=== PATIENT | female | born 1960 | race Caucasian/White ===

== ENCOUNTER 2017-08-22 14:43 | Emergency (ER) | payer SELFPAY ==
[2017-08-22] MEDS ORDERED: PREDNISONE 20 MG TABLET PO ONE (15:39)
[2017-08-22] MEDS ORDERED: IPRATROPIUM/ALBUTEROL 0.5-2.5 MG/3 ML AMPUL NEB ONE (15:39)
[2017-08-22] MEDS ORDERED: ALBUTEROL SULFATE 0.083% NEB 2.5 MG/3 ML AMPUL NEB ONE ×3 (15:39→16:53)
--- NOTE | 2017-08-22 15:42 | ER Document Report ---
ED Respiratory Problem - General Chief Complaint: Breathing Difficulty Stated Complaint: DIFFICULTY BREATHING Time Seen by Provider: 08/22/17 15:26 Mode of Arrival: Ambulatory Information source: Patient TRAVEL OUTSIDE OF THE [place] IN LAST 30 DAYS: No - HPI Patient complains to provider of: Cough, Short of breath Onset: Other - 2 weeks Duration: Worse/persistent Quality of pain: Achy Severity: Moderate Pain Level: 3 Context: Hx asthma, Hx COPD, Smoker Short of Breath: Moderate Chest pain/discomfort: Tightness Cough: Productive Sputum amount: Small Sputum color: Green, White Sputum consistency: Mucoid Associated symptoms: Congestion, Cough, Difficulty breathing, Short of breath, Wheezing Notes: Patient is a 56-year-old female who is a smoker who presents to the emergency room today complaining of productive cough 2 weeks duration with chest tightness and difficulty breathing, she has been using an inhaler at home with minimal relief, the cough is productive of whitish and sometimes greenish colored sputum, she also reports some body aches and chills - Related Data Allergies/Adverse Reactions: No Known Allergies Allergy (Verified 08/22/17 14:59) Past Medical History - General Information source: Patient - Social History Smoking Status: Current Every Day Smoker Family History: Reviewed & Not Pertinent Patient has suicidal ideation: No Patient has homicidal ideation: No Pulmonary Medical History: Reports: Hx Bronchitis Endocrine Medical History: Reports: Hx Hypothyroidism Renal/ Medical History: Denies: Hx Peritoneal Dialysis Psychiatric Medical History: Reports: Hx Depression Past Surgical History: Reports: Hx Section, Hx Cholecystectomy, Hx Hysterectomy - Immunizations Hx Diphtheria, Pertussis, Tetanus Vaccination: Yes Hx Pneumococcal Vaccination: 02/04/13 Review of Systems - Review of Systems Constitutional: Chills EENT: No symptoms reported Cardiovascular: No symptoms reported Respiratory: Cough, Short of breath, Wheezing Gastrointestinal: No symptoms reported Genitourinary: No symptoms reported Female Genitourinary: No symptoms reported Musculoskeletal: No symptoms reported Skin: No symptoms reported Hematologic/Lymphatic: No symptoms reported Neurological/Psychological: No symptoms reported -: Yes All other systems reviewed and negative Physical Exam - Vital signs Vitals: Temp Pulse Resp BP Pulse Ox 98.0 F 74 16 139/54 H 92 08/22/17 14:59 08/22/17 14:59 08/22/17 14:59 08/22/17 14:59 08/22/17 14:59 Interpretation: Normal - General General appearance: Appears well, Alert - HEENT Head: Normocephalic, Atraumatic Eyes: Normal Pupils: PERRL - Respiratory Respiratory status: No respiratory distress Chest status: Nontender Breath sounds: Productive cough, Rhonchi, Wheezing Chest palpation: Normal - Cardiovascular Rhythm: Regular Heart sounds: Normal auscultation Murmur: No - Abdominal Inspection: Normal Distension: No distension Bowel sounds: Normal Tenderness: Nontender Organomegaly: No organomegaly - Back Back: Normal, Nontender - Extremities General upper extremity: Normal inspection, Nontender, Normal color, Normal ROM , Normal temperature General lower extremity: Normal inspection, Nontender, Normal color, Normal ROM , Normal temperature, Normal weight bearing. No: Ba's sign - Neurological Neuro grossly intact: Yes Cognition: Normal Orientation: AAOx4 Pee Coma Scale Eye Opening: Spontaneous Pee Coma Scale Verbal: Oriented [place] Coma Scale Motor: Obeys Commands Pee Coma Scale Total: 15 Speech: Normal Motor strength normal: LUE, RUE, LLE, RLE Sensory: Normal - Psychological Associated symptoms: Normal affect, Normal mood - Skin Skin Temperature: Warm Skin Moisture: Dry Skin Color: Normal Course - Re-evaluation Re-evalutation: 08/22/17 17:33 Patient reports feeling much better and ready to go home, lab and imaging findings were discussed with her at bedside which are unremarkable, she continues to have a mild wheeze but this is significantly improved from her presentation, she has a nebulizer machine at home, since she is a smoker and has had the symptoms for [address] her on a Z-Jose, for likely bronchitis, she was advised to continue using her albuterol treatments at home, and will be placed on steroids as well, patient was advised to return if symptoms worsen, patient acknowledges understanding and agreement with this plan - Vital Signs Vital signs: Temp Pulse Resp BP Pulse Ox 98.0 F 74 16 139/54 H 92 08/22/17 14:59 08/22/17 14:59 08/22/17 14:59 08/22/17 14:59 08/22/17 14:59 - Laboratory Result Diagrams: 08/22/17 15:50 08/22/17 15:50 Laboratory results interpreted by me: 08/22/17 15:50 Carbon Dioxide 34 H - Diagnostic Test Radiology reviewed: Image reviewed - EKG Interpretation by Me EKG shows normal: Sinus rhythm Rate: Normal Rhythm: NSR Discharge - Discharge Clinical Impression: COPD exacerbation Acute bronchitis Qualifiers: Bronchitis organism: unspecified organism Qualified Code(s): J20.9 - Acute bronchitis, unspecified Condition: Stable Disposition: HOME, SELF-CARE Instructions: Bronchitis ([facility]), Bronchitis With Bronchospasm (Wheezing) ([facility]), Chronic Obstructive Lung Disease ([facility]) Additional Instructions: Follow up with your primary care provider in one to 2 days. Return to the emergency room immediately if symptoms worsen or any additional concerns. Prescriptions: Albuterol Sulfate [Albuterol Sulfate 2.5mg/3 mL] 1 vial IH Q4 PRN #30 vial PRN Reason: Azithromycin [Zithromax 250 mg Tablet] 250 mg PO ASDIR PRN #6 tablet PRN Reason: Prednisone 40 mg PO DAILY #8 tablet Forms: Smoking Cessation Education
--- NOTE | 2017-08-22 16:12 | RADIOLOGY REPORT (SQ) ---
EXAM DESCRIPTION: CHEST PA/LAT COMPLETED DATE/TIME: 08/22/2017 4:03 pm REASON FOR STUDY: sob COMPARISON: 08/01/2013 EXAM PARAMETERS: NUMBER OF VIEWS: two views TECHNIQUE: Digital Frontal and Lateral radiographic views of the chest acquired. RADIATION DOSE: NA LIMITATIONS: none FINDINGS: LUNGS AND PLEURA: No opacities, masses or pneumothorax. No pleural effusion. MEDIASTINUM AND HILAR STRUCTURES: No masses or contour abnormalities. HEART AND VASCULAR STRUCTURES: Heart normal size. No evidence for failure. BONES: No acute findings. HARDWARE: None in the chest. OTHER: No other significant finding. IMPRESSION: NO SIGNIFICANT RADIOGRAPHIC FINDING IN THE CHEST. TECHNICAL DOCUMENTATION: JOB ID: [id number] [employer]- All Rights Reserved
[2017-08-22 16:14] LABS: ABSOLUTE BASOPHILS # (AUTO) 0.1 10^3/uL (0.0-0.2); ABSOLUTE EOSINOPHILS # (AUTO) 0.2 10^3/uL (0.0-0.6); ABSOLUTE LYMPHOCYTES (AUTO) 1.9 10^3/uL (0.5-4.7); ABSOLUTE MONOCYTES (AUTO) 0.6 10^3/uL (0.1-1.4); ABSOLUTE NEUT (AUTO) 6.4 10^3/uL (1.7-8.2); EOSINOPHILS % (AUTO) 2.7 % (0-6); HEMATOCRIT 44.3 % (36.0-47.0); HEMOGLOBIN 14.9 g/dL (12.0-15.5); HGB HCT DIFFERENCE 0.4; LYMPHOCYTES % (AUTO) 20.4 % (13-45); MEAN CORPUSCULAR HEMOGLOBIN 30.9 pg (27.0-33.4); MEAN CORPUSCULAR HGB CONC 33.6 g/dL (32.0-36.0); MEAN CORPUSCULAR VOLUME 92 fl (80-97); MONOCYTES % (AUTO) 6.2 % (3-13); RED BLOOD COUNT 4.82 10^6/uL (3.72-5.28); RED CELL DISTRIBUTION WIDTH 12.9 % (11.5-14.0); SEGMENTED NEUTROPHILS % (AUTO) 69.7 % (42-78); WHITE BLOOD COUNT 9.2 10^3/uL (4.0-10.5)
[2017-08-22 16:29] LABS: ALANINE AMINOTRANSFERASE 26 U/L (9-52); ALBUMIN 4.2 g/dL (3.5-5.0); ALKALINE PHOSPHATASE 71 U/L (38-126); ANION GAP 9 (5-19); ASPARTATE AMINO TRANSFERASE 18 U/L (14-36); BILIRUBIN,DIRECT 0.3 mg/dL (0.0-0.4); BILIRUBIN,TOTAL 0.3 mg/dL (0.2-1.3); BLOOD UREA NITROGEN 13 mg/dL (7-20); CALCIUM 9.7 mg/dL (8.4-10.2); CARBON DIOXIDE 34 mmol/L (22-30); CHLORIDE 102 mmol/L (98-107); CREATININE RESULT 0.64 mg/dL (0.52-1.25); GLUCOSE 99 mg/dL (75-110); POTASSIUM 4.6 mmol/L (3.6-5.0); SODIUM 144.7 mmol/L (137-145); TOTAL PROTEIN 6.9 g/dL (6.3-8.2)
[2017-08-22] MEDS ORDERED: HYDROCODONE/ACETAMINOPHEN 5-325 MG TABLET PO ONE (16:47)
[2017-08-22 18:15] VITALS: BP 129/52
--- NOTE | 2017-08-23 09:37 | EKG REPORT ---
SEVERITY:- ABNORMAL ECG - SINUS RHYTHM ABNRM R PROG, CONSIDER ASMI OR LEAD PLACEMENT ABNORMAL T, CONSIDER ISCHEMIA, ANT-LAT LEADS : Confirmed by: Irma Shelton 23-Aug-2017 09:37:11
== END 2017-08-22 18:13 | disposition home or self-care (01) ==
LOC: ER 14:43
DX: J20.9 Acute bronchitis, unspecified (principal); J44.1 Chronic obstructive pulmonary disease with (acute) exacerbation; R06.02 Shortness of breath; R05 Cough; F17.200 Nicotine dependence, unspecified, uncomplicated; R07.9 Chest pain, unspecified
CPT/HCPCS: 93005; 94640 ×2; 99285; 36415; 85025; 80053; 84484; 71020; 93010; J7512; J7620

== ENCOUNTER 2017-09-04 16:24 | Emergency (ER) | payer SELFPAY ==
[2017-09-04] MEDS ORDERED: ASPIRIN 325 MG TABLET PO ONE (16:50)
--- NOTE | 2017-09-04 16:52 | ER Document Report ---
ED Medical Screen (RME) - General Chief Complaint: Chest Pain Stated Complaint: CHEST PAIN Time Seen by Provider: 09/04/17 16:50 Mode of Arrival: Ambulatory Information source: Patient TRAVEL OUTSIDE OF THE [place] IN LAST 30 DAYS: No - HPI Patient complains to provider of: CP; cough Onset: Other - Pt states she has had cough (mostly non-productive) and chest pain intermittently for the past 2 weeks. Does smoke. No SOB at present - Related Data Allergies/Adverse Reactions: No Known Allergies Allergy (Verified 09/04/17 16:27) Home Medications: Current Home Medications Cyanocobalamin (Vitamin B-12) [Vitamin B-12] 500 mcg SL DAILY 09/04/17 [History] Estradiol 0.5 mg PO DAILY 09/04/17 [History] Past Medical History Pulmonary Medical History: Reports: Hx Bronchitis Endocrine Medical History: Reports: Hx Hypothyroidism Renal/ Medical History: Denies: Hx Peritoneal Dialysis Psychiatric Medical History: Reports: Hx Depression Past Surgical History: Reports: Hx Section, Hx Cholecystectomy, Hx Hysterectomy - Immunizations Hx Diphtheria, Pertussis, Tetanus Vaccination: Yes Physical Exam - Vital signs Vitals: Temp Pulse Resp BP Pulse Ox 97.8 F 85 24 H 131/58 H 93 09/04/17 16:28 09/04/17 16:28 09/04/17 16:28 09/04/17 16:28 09/04/17 16:28 Course - Vital Signs Vital signs: Temp Pulse Resp BP Pulse Ox 97.8 F 85 24 H 131/58 H 93 09/04/17 16:28 09/04/17 16:28 09/04/17 16:28 09/04/17 16:28 09/04/17 16:28
[2017-09-04 17:15] LABS: ABSOLUTE BASOPHILS # (AUTO) 0.1 10^3/uL (0.0-0.2); ABSOLUTE EOSINOPHILS # (AUTO) 0.3 10^3/uL (0.0-0.6); ABSOLUTE LYMPHOCYTES (AUTO) 1.5 10^3/uL (0.5-4.7); ABSOLUTE MONOCYTES (AUTO) 0.9 10^3/uL (0.1-1.4); ABSOLUTE NEUT (AUTO) 7.3 10^3/uL (1.7-8.2); BASOPHILS % (AUTO) 0.6 % (0-2); EOSINOPHILS % (AUTO) 2.9 % (0-6); HEMATOCRIT 44.3 % (36.0-47.0); HEMOGLOBIN 15.1 g/dL (12.0-15.5); LYMPHOCYTES % (AUTO) 15.4 % (13-45); MEAN CORPUSCULAR HEMOGLOBIN 31.4 pg (27.0-33.4); MEAN CORPUSCULAR VOLUME 92 fl (80-97); MONOCYTES % (AUTO) 8.5 % (3-13); RED CELL DISTRIBUTION WIDTH 13.2 % (11.5-14.0); SEGMENTED NEUTROPHILS % (AUTO) 72.6 % (42-78)
--- NOTE | 2017-09-04 17:23 | RADIOLOGY REPORT (SQ) ---
EXAM DESCRIPTION: CHEST PA/LAT COMPLETED DATE/TIME: 09/04/2017 5:15 pm REASON FOR STUDY: CP COMPARISON: 08/22/2017 EXAM PARAMETERS: NUMBER OF VIEWS: two views TECHNIQUE: Digital Frontal and Lateral radiographic views of the chest acquired. RADIATION DOSE: NA LIMITATIONS: none FINDINGS: LUNGS AND PLEURA: No opacities, masses or pneumothorax. No pleural effusion. MEDIASTINUM AND HILAR STRUCTURES: No masses or contour abnormalities. HEART AND VASCULAR STRUCTURES: Heart normal size. No evidence for failure. BONES: No acute findings. HARDWARE: Mild scoliosis. OTHER: No other significant finding. IMPRESSION: NO SIGNIFICANT RADIOGRAPHIC FINDING IN THE CHEST. TECHNICAL DOCUMENTATION: JOB ID: [id number] [employer]- All Rights Reserved
[2017-09-04 17:35] LABS: ALANINE AMINOTRANSFERASE 27 U/L (9-52); ALBUMIN 4.2 g/dL (3.5-5.0); ALKALINE PHOSPHATASE 79 U/L (38-126); ANION GAP 8 (5-19); ASPARTATE AMINO TRANSFERASE 21 U/L (14-36); BILIRUBIN,DIRECT 0.3 mg/dL (0.0-0.4); BILIRUBIN,TOTAL 0.5 mg/dL (0.2-1.3); BLOOD UREA NITROGEN 10 mg/dL (7-20); CALCIUM 9.9 mg/dL (8.4-10.2); CARBON DIOXIDE 35 mmol/L (22-30); CHLORIDE 100 mmol/L (98-107); CREATINE KINASE 53 U/L (30-135); CREATININE RESULT 0.65 mg/dL (0.52-1.25); GLUCOSE 88 mg/dL (75-110); POTASSIUM 4.3 mmol/L (3.6-5.0); SODIUM 143.2 mmol/L (137-145); TOTAL PROTEIN 6.9 g/dL (6.3-8.2)
[2017-09-04 17:44] LABS: CREATINE KINASE MB 1.16 ng/mL (<4.55)
[2017-09-04 17:45] LABS: TROPONIN I < 0.012 ng/mL
--- NOTE | 2017-09-04 18:37 | EKG REPORT ---
SEVERITY:- ABNORMAL ECG - SINUS RHYTHM ABNORMAL T, CONSIDER ISCHEMIA, DIFFUSE LEADS : Confirmed by: Anthony Burgess MD 04-Sep-2017 18:36:46
[2017-09-04] MEDS ORDERED: IPRATROPIUM/ALBUTEROL 0.5-2.5 MG/3 ML AMPUL NEB ONE (18:56)
[2017-09-04] MEDS ORDERED: PREDNISONE 20 MG TABLET PO ONE (18:56)
[2017-09-04] MEDS ORDERED: ALBUTEROL SULFATE 0.083% NEB 2.5 MG/3 ML AMPUL NEB ONE (18:56)
[2017-09-04] MEDS ORDERED: BENZONATATE 100 MG CAPSULE PO ONE (18:57)
--- NOTE | 2017-09-04 18:58 | ER Document Report ---
ED Respiratory Problem - General Chief Complaint: Chest Pain Stated Complaint: CHEST PAIN Time Seen by Provider: 09/04/17 16:50 Mode of Arrival: Ambulatory Information source: Patient TRAVEL OUTSIDE OF THE [place] IN LAST 30 DAYS: No - HPI Patient complains to provider of: COPD, Cough, Short of breath Onset: Other - 2-3 weeks Duration: Worse/persistent Quality of pain: Achy Severity: Mild Pain Level: 1 Context: Hx COPD, Smoker Short of Breath: Moderate Chest pain/discomfort: Tightness Cough: Productive Sputum amount: Small Sputum color: White Sputum consistency: Mucoid At home treatment: Bronchodilators, Oral steroids Associated symptoms: Chest pain/discomfort, Congestion, Cough, Short of breath, Wheezing Similar symptoms previously: Yes Recently seen / treated by doctor: Yes Notes: Patient is a 57-year-old female with a history of COPD who continues to smoke, who presents to the emergency room for persistent cough productive of whitish colored phlegm, with her fever of 101 yesterday, she was seen in this emergency room on August 22 and diagnosed with bronchitis, was placed on antibiotics, steroids and albuterol treatments, she completed the antibiotics and the steroids but continues to have symptoms, she has not followed up with her primary care provider, she reports that her chest only hurts when she coughs - Related Data Allergies/Adverse Reactions: No Known Allergies Allergy (Verified 09/04/17 16:27) Home Medications: Current Home Medications Cyanocobalamin (Vitamin B-12) [Vitamin B-12] 500 mcg SL DAILY 09/04/17 [History] Estradiol 0.5 mg PO DAILY 09/04/17 [History] Past Medical History - General Information source: Patient - Social History Smoking Status: Current Every Day Smoker Frequency of alcohol use: None Drug Abuse: None Family History: Reviewed & Not Pertinent Patient has suicidal ideation: No Patient has homicidal ideation: No Pulmonary Medical History: Reports: Hx Bronchitis Endocrine Medical History: Reports: Hx Hypothyroidism Renal/ Medical History: Denies: Hx Peritoneal Dialysis Psychiatric Medical History: Reports: Hx Depression Past Surgical History: Reports: Hx Section, Hx Cholecystectomy, Hx Hysterectomy - Immunizations Hx Diphtheria, Pertussis, Tetanus Vaccination: Yes Hx Pneumococcal Vaccination: 02/04/13 Review of Systems - Review of Systems Constitutional: No symptoms reported EENT: No symptoms reported Cardiovascular: Chest pain Respiratory: See HPI Gastrointestinal: No symptoms reported Genitourinary: No symptoms reported Female Genitourinary: No symptoms reported Musculoskeletal: No symptoms reported Skin: No symptoms reported Hematologic/Lymphatic: No symptoms reported Neurological/Psychological: No symptoms reported -: Yes All other systems reviewed and negative Physical Exam - Vital signs Vitals: Temp Pulse Resp BP Pulse Ox 97.8 F 85 24 H 131/58 H 93 09/04/17 16:28 09/04/17 16:28 09/04/17 16:28 09/04/17 16:28 09/04/17 16:28 Interpretation: Tachypneic - General General appearance: Appears well, Alert - HEENT Head: Normocephalic, Atraumatic Eyes: Normal Pupils: PERRL - Respiratory Respiratory status: No respiratory distress Chest status: Nontender Breath sounds: Nonproductive cough, Wheezing Chest palpation: Normal - Cardiovascular Rhythm: Regular Heart sounds: Normal auscultation Murmur: No - Abdominal Inspection: Normal Distension: No distension Bowel sounds: Normal Tenderness: Nontender Organomegaly: No organomegaly - Back Back: Normal, Nontender - Extremities General upper extremity: Normal inspection, Nontender, Normal color, Normal ROM , Normal temperature General lower extremity: Normal inspection, Nontender, Normal color, Normal ROM , Normal temperature, Normal weight bearing. No: Ba's sign - Neurological Neuro grossly intact: Yes Cognition: Normal Orientation: AAOx4 [place] Coma Scale Eye Opening: Spontaneous Pee Coma Scale Verbal: Oriented [place] Coma Scale Motor: Obeys Commands [place] Coma Scale Total: 15 Speech: Normal Motor strength normal: LUE, RUE, LLE, RLE Sensory: Normal - Psychological Associated symptoms: Normal affect, Normal mood - Skin Skin Temperature: Warm Skin Moisture: Dry Skin Color: Normal Course - Re-evaluation Re-evalutation: 09/04/17 19:56 Patient reports feeling much better after breathing treatments and IV steroids, she was placed on a tapering dose of steroids, provided with cough medication and strongly encouraged to discontinue smoking, symptoms are consistent with COPD exacerbation as well as likely viral upper respiratory illness/bronchitis, patient was advised to follow-up with her primary care provider or return if symptoms worsen patient acknowledges understanding and agreement with this plan 09/04/17 23:47 - Vital Signs Vital signs: Temp Pulse Resp BP Pulse Ox 98.6 F 78 15 131/87 H 93 09/04/17 20:22 09/04/17 20:22 09/04/17 18:49 09/04/17 20:22 09/04/17 20:22 - Laboratory Result Diagrams: 09/04/17 17:01 09/04/17 17:01 Laboratory results interpreted by me: 09/04/17 17:01 Carbon Dioxide 35 H - Diagnostic Test Radiology reviewed: Image reviewed, Reports reviewed - EKG Interpretation by Me EKG shows normal: Sinus rhythm Rate: Normal Rhythm: NSR When compared to previous EKG there are: No significant change Additional EKG results interpreted by me: 09/04/17 23:49 Diffuse inverted T waves Discharge - Discharge Clinical Impression: COPD exacerbation Condition: Stable Disposition: HOME, SELF-CARE Instructions: Chronic Obstructive Lung Disease ([facility]), Stop Smoking ([facility]) Additional Instructions: Follow up with your primary care provider in one to 2 days. Return to the emergency room immediately if symptoms worsen or any additional concerns. Prescriptions: Albuterol Sulfate [Proair HFA Inhalation Aerosol 8.5 gm MDI] 1 puff IH Q4 PRN # 1 mdi PRN Reason: Methylprednisolone [Medrol Dosepack (4 mg/Tab) 21 Tab/Dosepak] 4 mg PO ASDIR PRN #21 tab.ds.pk PRN Reason: Promethazine HCl/Codeine [Prometh-Codein 6.25-10 mg/5 ml] 5 ml PO TID #120 syrup Forms: Smoking Cessation Education
[2017-09-04 20:23] VITALS: BP 131/87
== END 2017-09-04 20:24 | disposition home or self-care (01) ==
LOC: ER 16:24
DX: J44.1 Chronic obstructive pulmonary disease with (acute) exacerbation (principal); R07.9 Chest pain, unspecified; F17.200 Nicotine dependence, unspecified, uncomplicated; Z90.710 Acquired absence of both cervix and uterus; Z90.49 Acquired absence of other specified parts of digestive tract
CPT/HCPCS: 93005; 94640 ×2; 99285; 36415; 82553; 82550; 85025; 80053; 84484; 71020; 93010; J7512; J7620

== ENCOUNTER 2017-09-10 00:38 | Inpatient (IN) | payer SELFPAY ==
[2017-09-10] MEDS ORDERED: NORMAL SALINE 1000 ML 1,000 ML IV ONE (00:46)
[2017-09-10] MEDS ORDERED: CEFTRIAXONE 1 GM/D5W RTU 1 GM/50 ML RTUPB IV ONE (01:00)
[2017-09-10] MEDS ORDERED: AZITHROMYCIN 250 MG TABLET PO ONE (01:00)
[2017-09-10] MEDS ORDERED: ALBUTEROL SULFATE 0.083% NEB 2.5 MG/3 ML AMPUL NEB ONE (01:00)
[2017-09-10] MEDS ORDERED: KETOROLAC TROMETHAMINE INJ/PF 30 MG/1 ML SDV IV ONE (01:01)
[2017-09-10 01:06] LABS: VENOUS BLOOD BASE EXCESS 5.5 mmol/L; VENOUS BLOOD HCO3 30.3 mmol/L (20-32); VENOUS BLOOD PCO2 44.6 mmHg (35-63); VENOUS BLOOD PH 7.45 (7.30-7.42)
--- NOTE | 2017-09-10 01:06 | ER Document Report ---
ED General - General Chief Complaint: Shortness Of Breath Stated Complaint: SHORTNESS OF BREATH Time Seen by Provider: 09/10/17 00:45 Notes: Patient is a 57-year-old female with past medical history of COPD, ongoing tobacco abuse, no who presents with 48 hours of progressively worsening shortness of breath, cough, fever, chills. Patient states that she has had difficulty with her breathing for the past 1 month but it became markedly worse in the last 2 days. States exertion worsens her symptoms. She has tried Tylenol at home with moderate improvement of her symptoms. She has also been using her albuterol inhalers but states this does not feel like this improves work of breathing. She does not have a primary care doctor. She denies a history of similar symptoms in the past. She has never required intubation or ICU admission for her COPD. TRAVEL OUTSIDE OF THE [place] IN LAST 30 DAYS: No - Related Data Allergies/Adverse Reactions: No Known Allergies Allergy (Verified 09/04/17 16:27) Past Medical History - General Information source: Patient - Social History Smoking Status: Current Every Day Smoker Frequency of alcohol use: None Drug Abuse: None Lives with: Family Family History: Reviewed & Not Pertinent Patient has suicidal ideation: No Patient has homicidal ideation: No Pulmonary Medical History: Reports: Hx Bronchitis Endocrine Medical History: Reports: Hx Hypothyroidism Renal/ Medical History: Denies: Hx Peritoneal Dialysis Psychiatric Medical History: Reports: Hx Depression Past Surgical History: Reports: Hx Section, Hx Cholecystectomy, Hx Hysterectomy - Immunizations Hx Diphtheria, Pertussis, Tetanus Vaccination: Yes Hx Pneumococcal Vaccination: 02/04/13 Review of Systems - Review of Systems Notes: Constitutional: Positive for fever. HENT: Negative for sore throat. Eyes: Negative for visual changes. Cardiovascular: Negative for chest pain. Respiratory: Positive for shortness of breath. Gastrointestinal: Negative for abdominal pain, vomiting or diarrhea. Genitourinary: Negative for dysuria. Musculoskeletal: Negative for back pain. Skin: Negative for rash. Neurological: Negative for headaches, weakness or numbness. 10 point ROS negative except as marked above and in HPI. Physical Exam - Vital signs Vitals: Temp Resp BP Pulse Ox 99.9 F 28 H 113/64 93 09/10/17 00:42 09/10/17 00:42 09/10/17 00:42 09/10/17 00:42 Interpretation: Tachycardic, Tachypneic, Febrile Notes: PHYSICAL EXAMINATION: GENERAL: Ill in appearance, tachypnea, moderate distress HEAD: Atraumatic, normocephalic. EYES: Pupils equal round and reactive to light, extraocular movements intact, sclera anicteric, conjunctiva are normal. ENT: nares patent, oropharynx clear without exudates. Dry mucous membranes. NECK: Normal range of motion, supple without lymphadenopathy LUNGS: Tight air movement in all lung weller worse at the bases bilaterally, markedly diminished breath sounds at the right base. Moderate respiratory distress with tachypnea HEART: Regular tachycardia without murmurs ABDOMEN: Soft, nontender, normoactive bowel sounds. No guarding, no rebound. No masses appreciated. EXTREMITIES: Normal range of motion, no pitting or edema. No cyanosis. NEUROLOGICAL: No focal neurological deficits. Moves all extremities spontaneously and on command. PSYCH: Normal mood, normal affect. SKIN: Warm, Dry, normal turgor, no rashes or lesions noted. Course - Re-evaluation Re-evalutation: 09/10/17 01:04 Patient appears critically ill at time of presentation with mild respiratory distress, respiratory rate is 29 at time of assessment, diminished breath sounds throughout but markedly reduced at the right low base. She does meet sepsis criteria at time of presentation secondary tachycardia, tachypnea, and fever with a probable source of a pneumonia. Patient is very received 125 mg of Solu-Medrol prior to arrival. She also received 1 DuoNeb. She will be placed on continuous epidural nebulizers given her ongoing work of breathing and oxygen dependence, IV ceftriaxone and azithromycin will be initiated, and IV fluids will be started. Will obtain laboratories including cultures, chest x -ray, and reassess recently. If patient's work of breathing does not begin to improve on continuous nebulizers will plan to transition to BiPAP 09/10/17 01:41 Patient's work of breathing is moderately improved at this time. Tachycardia is also now improving heart rate now 88. Will continue to watch closely 09/10/17 02:00 Heart rate remains improved, trending down to 85 at this time. She remains with mild tachypnea at 20 breaths per minute. Saturating 94% on 2 L by nasal cannula. I discussed this case with Dr. Tobar who is agreed to admit. - Vital Signs Vital signs: Temp Pulse Resp BP Pulse Ox 99.9 F 28 H 113/64 93 09/10/17 00:42 09/10/17 00:42 09/10/17 00:42 09/10/17 00:42 - Laboratory Result Diagrams: 09/10/17 00:47 09/10/17 00:47 Laboratory results interpreted by me: 09/10/17 09/10/17 09/10/17 00:47 00:47 01:03 VBG pH 7.45 H Glucose 132 H POC Glucose 186 H Total Protein 6.2 L - Diagnostic Test Radiology reviewed: Image reviewed, Reports reviewed Radiology results interpreted by me: 09/10/17 01:56 Chest x-ray: Slight patchy infiltrate at the right lower lobe - EKG Interpretation by Me Additional EKG results interpreted by me: 09/10/17 02:01 Sinus tachycardia. Rate 105. No ST elevations or depressions. QTC is 429. Critical Care Note - Critical Care Note Total time excluding time spent on procedures (mins): 36 Comments: Critical care time spent obtaining history from patient or surrogate, discussions with consultants, development of treatment plan with patient or surrogate, evaluation of patient's response to treatment, examination of patient , ordering and performing treatments and interventions, ordering and review of laboratory studies, re-evaluation of patient's condition, ordering and review of radiographic studies and review of old charts Discharge - Discharge Clinical Impression: Respiratory distress, COPD exacerbation Pneumonia Qualifiers: Pneumonia type: due to unspecified organism Laterality: right Lung location: lower lobe of lung Qualified Code(s): J18.1 - Lobar pneumonia, unspecified organism Sepsis Qualifiers: Sepsis type: sepsis due to unspecified organism Qualified Code(s): A41.9 - Sepsis, unspecified organism Condition: Fair Disposition: ADMITTED INPATIENT [facility] Unit Admitted: Telemetry
[2017-09-10 01:09] LABS: PROTHROMBIN TIME 12.9 SEC (11.4-15.4)
[2017-09-10] MEDS: MAGNESIUM SULFATE/D5W 1 GM/100 ML RTUPB IV SCH ×2 (01:14→01:25)
[2017-09-10 01:17] LABS: ALANINE AMINOTRANSFERASE 36 U/L (9-52); ALBUMIN 3.7 g/dL (3.5-5.0); ALKALINE PHOSPHATASE 84 U/L (38-126); ANION GAP 11 (5-19); ASPARTATE AMINO TRANSFERASE 30 U/L (14-36); BILIRUBIN,DIRECT 0.3 mg/dL (0.0-0.4); BILIRUBIN,TOTAL 0.8 mg/dL (0.2-1.3); BLOOD UREA NITROGEN 10 mg/dL (7-20); CALCIUM 8.8 mg/dL (8.4-10.2); CARBON DIOXIDE 28 mmol/L (22-30); CHLORIDE 99 mmol/L (98-107); CREATININE RESULT 0.59 mg/dL (0.52-1.25); GLUCOSE 132 mg/dL (75-110); POTASSIUM 3.7 mmol/L (3.6-5.0); SODIUM 138.2 mmol/L (137-145); TOTAL PROTEIN 6.2 g/dL (6.3-8.2)
[2017-09-10 01:20] LABS: HEMATOCRIT 39.8 % (36.0-47.0); HEMOGLOBIN 13.4 g/dL (12.0-15.5); HGB HCT DIFFERENCE 0.4; MEAN CORPUSCULAR HEMOGLOBIN 31.1 pg (27.0-33.4); MEAN CORPUSCULAR HGB CONC 33.5 g/dL (32.0-36.0); MEAN CORPUSCULAR VOLUME 93 fl (80-97); RED BLOOD COUNT 4.29 10^6/uL (3.72-5.28); RED CELL DISTRIBUTION WIDTH 13.5 % (11.5-14.0); WHITE BLOOD COUNT 24.7 10^3/uL (4.0-10.5)
[2017-09-10 01:37] LABS: BAND NEUTROPHILS % (MANUAL) 2 % (3-5); BASOPHILS % (MANUAL) 0 % (0-2); EOSINOPHILS % (MANUAL) 0 % (0-6); LYMPHOCYTES % (MANUAL) 13 % (13-45); TOTAL CELLS COUNTED 100
--- NOTE | 2017-09-10 01:40 | RADIOLOGY REPORT (SQ) ---
EXAM DESCRIPTION: CHEST SINGLE VIEW CLINICAL HISTORY: difficulty breathing COMPARISON: 09/04/2017 FINDINGS: Single frontal view of the chest. The cardiomediastinal silhouette has normal size and contour. No consolidation, pneumothorax, or pleural effusion. No displaced rib fractures identified. Leads overlie the chest. Upper abdominal soft tissues are unremarkable. IMPRESSION: 1. No acute pulmonary process identified.
[2017-09-10 01:45] LABS: POLYCHROMASIA SLIGHT; STOMATOCYTES SLIGHT; TEAR DROP CELLS SLIGHT; TOXIC GRANULATION 1+; TOXIC VACUOLATION PRESENT
[2017-09-10] MEDS ORDERED: ONDANSETRON HCL INJ/PF 4 MG/2 ML SDV ONE (01:57)
[2017-09-10] MEDS ORDERED: ONDANSETRON HCL INJ/PF 4 MG/2 ML SDV IV ONE (02:00)
[2017-09-10] MEDS ORDERED: NORMAL SALINE 1000 ML 1,000 ML IV PRN (02:24)
[2017-09-10] MEDS ORDERED: LEVALBUTEROL HCL NEB 1.25 MG/3 ML AMPUL NEB PRN (02:24)
[2017-09-10] MEDS ORDERED: NICOTINE 21 MG/24 HR PATCH.TD24 TD SCH (02:45)
[2017-09-10] MEDS ORDERED: TRAMADOL HCL 50 MG TABLET PO PRN (03:05)
[2017-09-10] MEDS ORDERED: NORMAL SALINE 1000 ML 2,000 ML IV ONE (03:30)
[2017-09-10] MEDS ORDERED: NICOTINE 21 MG/24 HR PATCH.TD24 TD ONE (04:00)
[2017-09-10 05:01] LABS: APPEARANCE,URINE CLEAR; BILIRUBIN,URINE NEGATIVE (NEGATIVE); GLUCOSE, URINE NEGATIVE (NEGATIVE); KETONES,URINE NEGATIVE (NEGATIVE); LEUKOCYTE ESTERASE,URINE NEGATIVE (NEGATIVE); NITRITE,URINE NEGATIVE (NEGATIVE); PROTEIN,URINE NEGATIVE (NEGATIVE); URINE SPECIFIC GRAVITY 1.003; UROBILINOGEN,URINE NEGATIVE mg/dL (<2.0)
[2017-09-10] MEDS: LEVOTHYROXINE SODIUM 0.075 MG TABLET PO SCH (06:07)
[2017-09-10] MEDS: METHYLPREDNISOLONE INJ 40 MG/1 ML SDV IV SCH ×2 (06:07→11:51)
[2017-09-10] MEDS: IPRATROPIUM/ALBUTEROL 0.5-2.5 MG/3 ML AMPUL NEB SCH ×3 (09:16→20:15)
--- NOTE | 2017-09-10 09:16 | EKG REPORT ---
SEVERITY:- ABNORMAL ECG - SINUS TACHYCARDIA ABNORMAL T, CONSIDER ISCHEMIA, LATERAL LEADS : Confirmed by: Irma Shelton 10-Sep-2017 09:15:52
[2017-09-10] MEDS: NICOTINE 21 MG/24 HR PATCH.TD24 TD SCH (09:47)
[2017-09-10] MEDS: CITALOPRAM HYDROBROMIDE 20 MG TABLET PO SCH (09:48)
[2017-09-10] MEDS: ENOXAPARIN SODIUM INJ 40 MG/0.4 ML DISP.SYRIN SUBCUT SCH (09:48)
[2017-09-10] MEDS: DOCUSATE SODIUM 100 MG CAPSULE PO SCH ×2 (09:50→17:44)
[2017-09-10] MEDS ORDERED: CEFTRIAXONE 1 GM/D5W RTU 1 GM/50 ML RTUPB IV SCH (10:00)
[2017-09-10] MEDS ORDERED: GUAIFENESIN 600 MG TABLET.SA PO SCH (10:00)
[2017-09-10] MEDS ORDERED: AZITHROMYCIN 500 MG in DEXTROSE 5%-WATER 250 ML IV SCH (10:00)
--- NOTE | 2017-09-10 12:09 | Progress Note ---
Provider Note Provider Note: Patient admitted this morning. Chart reviewed. Patient is a 57-year-old female with past medical history of COPD with ongoing tobacco abuse who presented to the hospital with 48 hours of progressive worsening shortness of breath cough fever with chills. Her chest x-ray did not show any acute pulmonary process, but there appears to be a right lower lobe infiltrate by my review. Her lactic acid was 1.9. She will receive IV Solu-Medrol, nebulizer treatment, and was started on empiric IV ceftriaxone and azithromycin. Plan: Continue current management. We will follow. Discussed with daughter, Paz, by bedside. manager statistical updated
[2017-09-10] MEDS: METHYLPREDNISOLONE INJ 125 MG/2 ML SDV IV SCH ×2 (17:44→23:34)
[2017-09-10] MEDS: SENNOSIDES/DOCUSATE 8.6-50 MG 1 EACH TABLET PO SCH (21:46)
[2017-09-10] MEDS: GUAIFENESIN 600 MG TABLET.SA PO SCH (21:46)
[2017-09-10] MEDS: KETOROLAC TROMETHAMINE INJ/PF 30 MG/1 ML SDV IV PRN (23:37)
[2017-09-11] MEDS: IPRATROPIUM/ALBUTEROL 0.5-2.5 MG/3 ML AMPUL NEB SCH ×4 (01:50→19:45)
[2017-09-11] MEDS: GUAIFENESIN SYRP 200 MG/10 ML UDC PO PRN ×3 (03:32→22:09)
[2017-09-11] MEDS: LEVOTHYROXINE SODIUM 0.075 MG TABLET PO SCH (05:39)
[2017-09-11] MEDS: METHYLPREDNISOLONE INJ 125 MG/2 ML SDV IV SCH (05:39)
[2017-09-11 06:16] LABS: HEMATOCRIT 37.1 % (36.0-47.0); HEMOGLOBIN 12.1 g/dL (12.0-15.5); HGB HCT DIFFERENCE -0.8; MEAN CORPUSCULAR HEMOGLOBIN 30.7 pg (27.0-33.4); MEAN CORPUSCULAR HGB CONC 32.6 g/dL (32.0-36.0); MEAN CORPUSCULAR VOLUME 94 fl (80-97); RED BLOOD COUNT 3.94 10^6/uL (3.72-5.28); RED CELL DISTRIBUTION WIDTH 13.2 % (11.5-14.0); WHITE BLOOD COUNT 25.5 10^3/uL (4.0-10.5)
[2017-09-11 06:35] LABS: ANION GAP 8 (5-19); BLOOD UREA NITROGEN 13 mg/dL (7-20); CALCIUM 8.7 mg/dL (8.4-10.2); CARBON DIOXIDE 26 mmol/L (22-30); CHLORIDE 107 mmol/L (98-107); CREATININE RESULT 0.62 mg/dL (0.52-1.25); GLUCOSE 148 mg/dL (75-110); POTASSIUM 4.6 mmol/L (3.6-5.0); SODIUM 141.3 mmol/L (137-145)
[2017-09-11 06:43] LABS: BAND NEUTROPHILS % (MANUAL) 4 % (3-5); BASOPHILS % (MANUAL) 0 % (0-2); EOSINOPHILS % (MANUAL) 0 % (0-6); LYMPHOCYTES % (MANUAL) 1 % (13-45); TOTAL CELLS COUNTED 100
[2017-09-11 06:44] LABS: RBC MORPHOLOGY COMMENT NORMO-CYTIC/CHROMIC; TOXIC GRANULATION SLIGHT
[2017-09-11] MEDS ORDERED: FUROSEMIDE INJ/PF 20 MG/2 ML SDV IV ONE (10:50)
--- NOTE | 2017-09-11 10:50 | PDOC PROGRESS REPORT ---
Subjective Progress Note for:: 09/11/17 Subjective:: Day 1 of hospitalization: Follow-up visit for COPD exacerbation with possible pneumonia. Patient is a 57-year-old female with past medical history of COPD who continues to smoke, who presented to the emergency room on 09/10/2017 with progressive worsening shortness of breath, cough fever and chills. Chest x-ray on admission did not reveal any acute infiltrate. She was admitted for COPD exacerbation with acute bronchitis. Overnight events noted: Patient stated that she had significant shortness of breath overnight but this has improved. She denies any chest pain, nausea, vomiting, diarrhea, or any focal neurologic deficit. She continues to have a mildly productive cough. She has remained afebrile since admission. Physical Exam Vital Signs: Temp Pulse Resp BP Pulse Ox 97.7 F 77 16 121/54 L 99 09/11/17 07:29 09/11/17 07:56 09/11/17 07:56 09/11/17 07:29 09/11/17 07:56 Intake & Output 09/10/17 09/11/17 09/12/17 06:59 06:59 06:59 Intake Total 2260 4352 Output Total 900 1200 Balance 1360 3152 Weight 67.5 kg 71 kg General appearance: PRESENT: disheveled, mild distress Head exam: PRESENT: atraumatic, normocephalic Eye exam: PRESENT: conjunctiva pink, EOMI Respiratory exam: PRESENT: other - Scattered rhonchi with mild bilateral prolonged expiratory wheezes Cardiovascular exam: PRESENT: RRR, +S1, +S2. ABSENT: bradycardia, clicks, diastolic murmur, gallop, irregular rhythm, rubs, systolic murmur, tachycardia, other GI/Abdominal exam: PRESENT: normal bowel sounds, soft. ABSENT: ascites, diminished bowel sounds, distended, firm, guarding, hernia, hyperactive bowel sounds, hypoactive bowel sounds, mass, Gerardo's sign, organolmegaly, rebound, rigid, tenderness, other Extremities exam: PRESENT: full ROM. ABSENT: calf tenderness, clubbing, joint swelling, pedal edema, tenderness, +1 edema, +2 edema, other Neurological exam: PRESENT: alert, awake, oriented to person, oriented to place , oriented to time, oriented to situation, reflexes normal, CN II-XII grossly intact Psychiatric exam: PRESENT: depressed Results Laboratory Results: 09/11/17 05:09 09/11/17 05:09 09/11/17 09/11/17 05:09 05:09 WBC 25.5 H RBC 3.94 Hgb 12.1 Hct 37.1 MCV 94 MCH 30.7 MCHC 32.6 RDW 13.2 Plt Count 236 Seg Neutrophils % Not Reportable Lymphocytes % Not Reportable Monocytes % Not Reportable Eosinophils % Not Reportable Basophils % Not Reportable Absolute Neutrophils Not Reportable Absolute Lymphocytes Not Reportable Absolute Monocytes Not Reportable Absolute Eosinophils Not Reportable Absolute Basophils Not Reportable Sodium 141.3 Potassium 4.6 Chloride 107 Carbon Dioxide 26 Anion Gap 8 BUN 13 Creatinine 0.62 Est GFR ( Amer) > 60 Est GFR (Non-Af Amer) > 60 Glucose 148 H Calcium 8.7 Impressions: Chest X-Ray 09/10/17 00:39 IMPRESSION: 1. No acute pulmonary process identified. Assessment & Plan - Diagnosis (1) COPD exacerbation Is this a current diagnosis for this admission?: Yes Plan: Acute COPD exacerbation in a current smoker. Chest x-ray with no acute infiltrate [please note that patient was initially thought to have pneumonia. I have not seen any radiographic evidence of pneumonia]. Symptoms gradually improving, but patient is still significantly short of breath with activity. Patient has been afebrile since admission, WBC is elevated at 25.5 (? Steroid use), blood, sputum and urine cultures negative to date. Continue nebulizer treatment, oral steroids, and oral antibiotics. Follow cultures (2) Acute hypoxemic respiratory failure Is this a current diagnosis for this admission?: Yes Plan: Acute hypoxemic respiratory failure due to above. Continue supplementary oxygen and wean as able (3) Hypothyroidism Is this a current diagnosis for this admission?: Yes Plan: Chronic, stable. Continue home levothyroxine (4) Tobacco abuse Plan: Patient has received smoking cessation counseling but does not wish to quit smoking. Nicotine replacement therapy of (5) DVT prophylaxis Is this a current diagnosis for this admission?: Yes Plan: Subcutaneous Lovenox
[2017-09-11] MEDS: CITALOPRAM HYDROBROMIDE 20 MG TABLET PO SCH (10:52)
[2017-09-11] MEDS: SENNOSIDES/DOCUSATE 8.6-50 MG 1 EACH TABLET PO SCH ×2 (10:52→22:09)
[2017-09-11] MEDS: DOCUSATE SODIUM 100 MG CAPSULE PO SCH ×2 (10:52→18:01)
[2017-09-11] MEDS: NICOTINE 21 MG/24 HR PATCH.TD24 TD SCH (10:52)
[2017-09-11] MEDS: GUAIFENESIN 600 MG TABLET.SA PO SCH ×2 (10:52→22:09)
[2017-09-11] MEDS: ENOXAPARIN SODIUM INJ 40 MG/0.4 ML DISP.SYRIN SUBCUT SCH (10:56)
[2017-09-11] MEDS ORDERED: FUROSEMIDE INJ/PF 40 MG/4 ML SDV IV ONE (12:00)
[2017-09-11] MEDS: ACETAMINOPHEN 325 MG TABLET PO PRN (18:01)
[2017-09-12] MEDS: KETOROLAC TROMETHAMINE INJ/PF 30 MG/1 ML SDV IV PRN (00:03)
[2017-09-12] MEDS: IPRATROPIUM/ALBUTEROL 0.5-2.5 MG/3 ML AMPUL NEB SCH ×4 (02:07→19:42)
[2017-09-12 05:13] LABS: HEMATOCRIT 37.4 % (36.0-47.0); HGB HCT DIFFERENCE -1.4; MEAN CORPUSCULAR HEMOGLOBIN 30.2 pg (27.0-33.4); MEAN CORPUSCULAR HGB CONC 32.2 g/dL (32.0-36.0); MEAN CORPUSCULAR VOLUME 94 fl (80-97); RED BLOOD COUNT 3.98 10^6/uL (3.72-5.28); RED CELL DISTRIBUTION WIDTH 13.7 % (11.5-14.0); WHITE BLOOD COUNT 19.5 10^3/uL (4.0-10.5)
[2017-09-12 05:50] LABS: ANION GAP 6 (5-19); BLOOD UREA NITROGEN 17 mg/dL (7-20); CALCIUM 9.2 mg/dL (8.4-10.2); CARBON DIOXIDE 31 mmol/L (22-30); CHLORIDE 105 mmol/L (98-107); CREATININE RESULT 0.76 mg/dL (0.52-1.25); GLUCOSE 87 mg/dL (75-110); POTASSIUM 4.8 mmol/L (3.6-5.0); SODIUM 142.3 mmol/L (137-145)
[2017-09-12] MEDS: LEVOTHYROXINE SODIUM 0.075 MG TABLET PO SCH (06:03)
[2017-09-12] MEDS: ACETAMINOPHEN 325 MG TABLET PO PRN (08:00)
[2017-09-12] MEDS ORDERED: LEVOFLOXACIN 750 MG TABLET PO SCH (10:00)
[2017-09-12] MEDS: CITALOPRAM HYDROBROMIDE 20 MG TABLET PO SCH (10:24)
[2017-09-12] MEDS: DOCUSATE SODIUM 100 MG CAPSULE PO SCH ×2 (10:24→18:09)
[2017-09-12] MEDS: GUAIFENESIN 600 MG TABLET.SA PO SCH ×2 (10:24→22:31)
[2017-09-12] MEDS: SENNOSIDES/DOCUSATE 8.6-50 MG 1 EACH TABLET PO SCH ×2 (10:24→22:31)
[2017-09-12] MEDS: NICOTINE 21 MG/24 HR PATCH.TD24 TD SCH (10:25)
[2017-09-12] MEDS: PREDNISONE 20 MG TABLET PO SCH (10:25)
[2017-09-12] MEDS: ENOXAPARIN SODIUM INJ 40 MG/0.4 ML DISP.SYRIN SUBCUT SCH (10:25)
--- NOTE | 2017-09-12 12:21 | PDOC PROGRESS REPORT ---
Subjective Progress Note for:: 09/12/17 Subjective:: Day 1 of hospitalization: Follow-up visit for COPD exacerbation with possible pneumonia. Patient is a 57-year-old female with past medical history of COPD who continues to smoke, who presented to the emergency room on 09/10/2017 with progressive worsening shortness of breath, cough fever and chills. Chest x-ray on admission did not reveal any acute infiltrate. She was admitted for COPD exacerbation with acute bronchitis. She has been receiving aggressive nebulizer treatment, steroids, and oral antibiotics. Sputum culture was positive for Streptococcus pneumoniae, blood culture from admission remains negative Overnight events noted: Patient reports shortness of breath and difficulty sleeping. Currently, she feels much better. She denies any chest pain, nausea , vomiting, diarrhea, or any focal neurologic deficit. She continues to have a mildly productive cough. She has remained afebrile since admission. Physical Exam Vital Signs: Temp Pulse Resp BP Pulse Ox 97.9 F 68 16 110/57 L 98 09/12/17 07:20 09/12/17 08:22 09/12/17 08:22 09/12/17 07:20 09/12/17 08:22 Intake & Output 09/11/17 09/12/17 09/13/17 06:59 06:59 06:59 Intake Total 4352 1038 Output Total 1200 Balance 3152 1038 Weight 71 kg 70.1 kg General appearance: PRESENT: no acute distress, cooperative, disheveled, well- developed Head exam: PRESENT: atraumatic, normocephalic Respiratory exam: PRESENT: decreased breath sounds, symmetrical, unlabored. ABSENT: accessory muscle use, chest wall tenderness, clear to auscultation danyell, crackles, prolonged expiratory phas, rales, retraction, rhonchi, stridor, tachypnea, wheezes, other Cardiovascular exam: PRESENT: RRR, +S1, +S2. ABSENT: bradycardia, clicks, diastolic murmur, gallop, irregular rhythm, rubs, systolic murmur, tachycardia, other GI/Abdominal exam: PRESENT: normal bowel sounds, soft. ABSENT: ascites, diminished bowel sounds, distended, firm, guarding, hernia, hyperactive bowel sounds, hypoactive bowel sounds, mass, Gerardo's sign, organolmegaly, rebound, rigid, tenderness, other Neurological exam: PRESENT: awake, oriented to person, oriented to place, oriented to time, oriented to situation, reflexes normal, CN II-XII grossly intact Results Laboratory Results: 09/12/17 05:00 09/12/17 05:00 09/12/17 09/12/17 05:00 05:00 WBC 19.5 H RBC 3.98 Hgb 12.0 Hct 37.4 MCV 94 MCH 30.2 MCHC 32.2 RDW 13.7 Plt Count 262 Sodium 142.3 Potassium 4.8 Chloride 105 Carbon Dioxide 31 H Anion Gap 6 BUN 17 Creatinine 0.76 Est GFR ( Amer) > 60 Est GFR (Non-Af Amer) > 60 Glucose 87 Calcium 9.2 09/10/17 12:25 Sputum Gram Stain - Final 09/10/17 04:15 Clean Catch Midstream Urine Culture - Final NO GROWTH 2 DAYS Impressions: Chest X-Ray 09/10/17 00:39 IMPRESSION: 1. No acute pulmonary process identified. Status: Image reviewed by me Assessment & Plan - Diagnosis (1) COPD exacerbation Is this a current diagnosis for this admission?: Yes Plan: Acute COPD exacerbation in a current smoker. Chest x-ray with NAD. Symptoms gradually improving, but patient is still significantly short of breath with activity. Afebrile with improving leukocytosis: WBC 19.5 [25.5]. sputum culture with Streptococcus pneumoniae. We will repeat chest x-ray to evaluate for pneumonia. Continue nebulizer treatment, oral steroids, and oral antibiotics. Follow cultures (2) Acute hypoxemic respiratory failure Is this a current diagnosis for this admission?: Yes Plan: Acute hypoxemic respiratory failure due to above. Continue supplementary oxygen and wean as able (3) Hypothyroidism Is this a current diagnosis for this admission?: Yes Plan: Chronic, stable. Continue home levothyroxine (4) Tobacco abuse Plan: Patient has received smoking cessation counseling but does not wish to quit smoking. Nicotine replacement therapy of (5) DVT prophylaxis Is this a current diagnosis for this admission?: Yes Plan: Subcutaneous Lovenox - Time Time Spent with patient: 35 or more minutes Smoking Cessation Education: 3 to 10 minutes Medications reviewed and adjusted accordingly: Yes Anticipated discharge: Home Within: within 48 hours - Inpatient Certification Medical Necessity: Need for IV Antibiotics, Risk of Diagnosis Which Will Require Inpatient Eval/Care/Monitoring - Plan Summary Plan Summary: Maintain hospitalized. Continue IV antibiotics. Follow chest x-ray planned for possible discharge on Thursday if clinically improved
[2017-09-12] MEDS: CEFTRIAXONE 1 GM/D5W RTU 1 GM/50 ML RTUPB IV SCH (12:45)
[2017-09-12] MEDS ORDERED: AZITHROMYCIN 250 MG TABLET PO ONE (13:00)
[2017-09-12] MEDS ORDERED: ONDANSETRON HCL INJ/PF 4 MG/2 ML SDV IV PRN (14:12)
--- NOTE | 2017-09-12 16:06 | RADIOLOGY REPORT (SQ) ---
EXAM DESCRIPTION: CHEST PA/LAT COMPLETED DATE/TIME: 09/12/2017 3:16 pm REASON FOR STUDY: pneumonia COMPARISON: 09/10/2017, 09/04/2017, and 08/01/2013. EXAM PARAMETERS: NUMBER OF VIEWS: two views TECHNIQUE: Digital Frontal and Lateral radiographic views of the chest acquired. RADIATION DOSE: NA LIMITATIONS: none FINDINGS: LUNGS AND PLEURA: There is mild parenchymal prominence in the right infrahilar region whic h is present on older chest x-rays and appears to be chronic. No infiltrates, masses or pneumothorax . No pleural effusion. MEDIASTINUM AND HILAR STRUCTURES: No masses or contour abnormalities. HEART AND VASCULAR STRUCTURES: Heart normal size. No evidence for failure. BONES: No acute findings. HARDWARE: None in the chest. OTHER: No other significant finding. IMPRESSION: NO ACUTE RADIOGRAPHIC FINDING IN THE CHEST. TECHNICAL DOCUMENTATION: JOB ID: [id number] [employer]- All Rights Reserved
[2017-09-13] MEDS: IPRATROPIUM/ALBUTEROL 0.5-2.5 MG/3 ML AMPUL NEB SCH ×3 (01:57→14:01)
[2017-09-13] MEDS: LEVOTHYROXINE SODIUM 0.075 MG TABLET PO SCH (05:17)
[2017-09-13 05:36] LABS: HEMATOCRIT 39.5 % (36.0-47.0); HGB HCT DIFFERENCE -0.5; MEAN CORPUSCULAR HEMOGLOBIN 30.6 pg (27.0-33.4); MEAN CORPUSCULAR HGB CONC 32.8 g/dL (32.0-36.0); MEAN CORPUSCULAR VOLUME 93 fl (80-97); RED BLOOD COUNT 4.25 10^6/uL (3.72-5.28); RED CELL DISTRIBUTION WIDTH 13.7 % (11.5-14.0); WHITE BLOOD COUNT 14.8 10^3/uL (4.0-10.5)
[2017-09-13 06:08] LABS: BASOPHILS % (MANUAL) 0 % (0-2); EOSINOPHILS % (MANUAL) 1 % (0-6); LYMPHOCYTES % (MANUAL) 17 % (13-45); NUCLEATED RED BLOOD CELLS 1 /100 WBC (0); TOTAL CELLS COUNTED 100
[2017-09-13 06:10] LABS: TOXIC GRANULATION 1+
[2017-09-13] MEDS ORDERED: AZITHROMYCIN 250 MG TABLET PO SCH (10:00)
[2017-09-13] MEDS ORDERED: CEFTRIAXONE SODIUM 1,000 MG in DEXTROSE 5%-WATER 100 ML IV SCH (10:00)
[2017-09-13] MEDS: PREDNISONE 20 MG TABLET PO SCH (10:31)
[2017-09-13] MEDS: SENNOSIDES/DOCUSATE 8.6-50 MG 1 EACH TABLET PO SCH (10:31)
[2017-09-13] MEDS: GUAIFENESIN 600 MG TABLET.SA PO SCH (10:31)
[2017-09-13] MEDS: NICOTINE 21 MG/24 HR PATCH.TD24 TD SCH (10:32)
[2017-09-13] MEDS: CITALOPRAM HYDROBROMIDE 20 MG TABLET PO SCH (10:32)
[2017-09-13] MEDS: ENOXAPARIN SODIUM INJ 40 MG/0.4 ML DISP.SYRIN SUBCUT SCH (10:33)
--- NOTE | 2017-09-13 12:17 | PDOC DISCHARGE SUMMARY ---
General - Admit/Disc Date/PCP Admission Date/Primary Care Provider: 09/10/17 02:16 Discharge Date: 09/13/17 - Discharge Diagnosis (1) COPD exacerbation Is this a current diagnosis for this admission?: Yes Summary: Acute COPD exacerbation and current smoker. Chest x-ray with an NAD. Symptoms significantly improved. Afebrile with resolving leukocytosis: WBC 14.8 [25.5]. Sputum culture with Streptococcus pneumonia. Will discharge patient on nebulizer, prednisone 40 mg daily for 5 days, and oral levofloxacin. Patient to follow with primary care physician (2) Acute hypoxemic respiratory failure Is this a current diagnosis for this admission?: Yes Summary: Acute hypoxic respiratory failure due to above. Resolved (3) Hypothyroidism Is this a current diagnosis for this admission?: Yes Summary: Chronic, stable. Continue home levothyroxine (4) Tobacco abuse Summary: And has received smoking cessation counseling but does not wish to quit smoking at this time - Additional Information Resuscitation Status: Full Code Discharge Diet: Cardiac Discharge Activity: Activity As Tolerated Home Medications: Aspirin [Aspirin EC] 81 mg PO DAILY 09/10/17 Citalopram Hydrobromide [Celexa 20 mg Tablet] 20 mg PO DAILY 09/10/17 Cyanocobalamin (Vitamin B-12) [Vitamin B-12] 1,000 mcg PO DAILY 09/10/17 Estradiol [Estrace] 1 mg PO QAM 09/10/17 Levothyroxine Sodium [Synthroid 0.075 mg Tablet] 0.075 mg PO QAM 09/10/17 Vit 40/Iron/Folic/Dha [ Multi-Dha Softgel] 1 each PO DAILY Ipratropium/Albuterol Sulfate [Duoneb 3 ml Ampul] 3 ml NEB RTQ6 #10 vial.neb Levofloxacin [Levaquin 750 mg Tablet] 750 mg PO DAILY #5 tablet 09/13/17 Prednisone [Deltasone 20 mg Tablet] 40 mg PO DAILY 5 Days #5 tablet 09/13/17 History of Present Illness History of Present Illness: SANDOR AGGARWAL is a 57 year old female 57-year-old female with past medical history of COPD who continues to smoke, presented to the emergency room on 09/10/2017 with progressive worsening shortness of breath, cough, fever and chills. Check x-ray did not reveal any acute infiltrates. She was admitted for COPD exacerbation with acute bronchitis. Please refer to dictated H&P for further details Hospital Course Hospital Course: See above Physical Exam Vital Signs: Temp Pulse Resp BP Pulse Ox 97.8 F 78 18 119/61 98 09/13/17 07:19 09/13/17 08:25 09/13/17 08:25 09/13/17 07:19 09/13/17 08:25 Intake & Output 09/12/17 09/13/17 09/14/17 06:59 06:59 06:59 Intake Total 1038 2290 Balance 1038 2290 Weight 70.1 kg General appearance: PRESENT: no acute distress, cooperative Head exam: PRESENT: atraumatic, normocephalic Respiratory exam: PRESENT: decreased breath sounds, rhonchi, unlabored. ABSENT : accessory muscle use, chest wall tenderness, clear to auscultation danyell, crackles, prolonged expiratory phas, rales, retraction, stridor, symmetrical, tachypnea, wheezes, other Cardiovascular exam: PRESENT: RRR, +S1, +S2. ABSENT: bradycardia, clicks, diastolic murmur, gallop, irregular rhythm, rubs, systolic murmur, tachycardia, other GI/Abdominal exam: PRESENT: normal bowel sounds, soft. ABSENT: ascites, diminished bowel sounds, distended, firm, guarding, hernia, hyperactive bowel sounds, hypoactive bowel sounds, mass, Gerardo's sign, organolmegaly, rebound, rigid, tenderness, other Neurological exam: PRESENT: alert, awake, oriented to person, oriented to place , oriented to time, oriented to situation, reflexes normal, CN II-XII grossly intact. ABSENT: altered, abnormal gait, ataxia, motor sensory deficit, normal gait, aphasic, other Skin exam: PRESENT: intact, normal color, warm Results Laboratory Results: 09/13/17 05:04 09/12/17 05:00 09/13/17 05:04 WBC 14.8 H RBC 4.25 Hgb 13.0 Hct 39.5 MCV 93 MCH 30.6 MCHC 32.8 RDW 13.7 Plt Count 279 Seg Neutrophils % Not Reportable Lymphocytes % Not Reportable Monocytes % Not Reportable Eosinophils % Not Reportable Basophils % Not Reportable Absolute Neutrophils Not Reportable Absolute Lymphocytes Not Reportable Absolute Monocytes Not Reportable Absolute Eosinophils Not Reportable Absolute Basophils Not Reportable 09/10/17 12:25 Sputum Gram Stain - Final 09/10/17 12:25 Sputum Sputum Culture - Final Streptococcus Pneumoniae Reduced Normal Nina 09/10/17 04:15 Clean Catch Midstream Urine Culture - Final NO GROWTH 2 DAYS Impressions: Chest X-Ray 09/12/17 00:00 IMPRESSION: NO ACUTE RADIOGRAPHIC FINDING IN THE CHEST. Status: Image reviewed by me Qualifiers PATEINT BEING DISCHARGED WITH ANY OF THE FOLLOWING DIAGNOSIS?: No Plan Discharge Plan: Discharge planning reviewed with patient and daughter who was by the bedside. All their concerns and questions have been addressed. They have expressed a clear understanding of this discharge plan. Time Spent: Greater than 30 Minutes
[2017-09-13] MEDS: DOCUSATE SODIUM 100 MG CAPSULE PO SCH (13:26)
[2017-09-13] MEDS: CEFTRIAXONE 1 GM/D5W RTU 1 GM/50 ML RTUPB IV SCH (13:27)
[2017-09-13 13:46] VITALS: BP 128/72
--- NOTE | 2017-09-23 01:43 | PDOC H&P ---
History of Present Illness Admission Date/PCP: 09/10/17 02:16 History of Present Illness: SANDOR AGGARWAL is a 57 year old female past medical history of COPD, hypothyroidism, ongoing tobacco abuse, no who presents with 48 hours of progressively worsening shortness of breath, cough, fever, chills. Patient states that she has had difficulty with her breathing for the past 1 month but it became markedly worse in the last 2 days. States exertion worsens her symptoms. She has tried Tylenol at home with some improvement of her symptoms. She has also been using her albuterol inhalers but states this does not feel like this improves her breathing. Patient reports approximately 1 month ago she had an upper respiratory tract infection for which she was given a steroid and a Z-Jose. She reports that her cough has been getting progressive and she has been unable to produce any sputum. Patient was found by EMS to have a temperature of 101.4 degrees Fahrenheit. Patient is found to have leukocytosis , tachypnea, hypoxia, and evidence of right lower lobe pneumonia. Patient is referred to hospital service for admission for this. Past Medical History Pulmonary Medical History: Reports: Bronchitis Endocrine Medical History: Reports: Hypothyroidism Psychiatric Medical History: Reports: Depression Past Surgical History Past Surgical History: Reports: Section, Cholecystectomy, Hysterectomy Social History Lives with: Family Smoking Status: Current Every Day Smoker Cigarettes Packs Per Day: 2 Number of Years Smokin Frequency of Alcohol Use: Occasional Hx Recreational Drug Use: No Hx Prescription Drug Abuse: No - Advance Directive Resuscitation Status: Full Code Surrogate healthcare decision maker:: Catalino Richey, significant other Family History Family History: Hypertension Parental Family History Reviewed: Yes Children Family History Reviewed: Yes Sibling(s) Family History Reviewed.: Yes Medication/Allergy Home Medications: Aspirin [Aspirin EC] 81 mg PO DAILY 09/10/17 Citalopram Hydrobromide [Celexa 20 mg Tablet] 20 mg PO DAILY 09/10/17 Cyanocobalamin (Vitamin B-12) [Vitamin B-12] 1,000 mcg PO DAILY 09/10/17 Estradiol [Estrace] 1 mg PO QAM 09/10/17 Levothyroxine Sodium [Synthroid 0.075 mg Tablet] 0.075 mg PO QAM 09/10/17 Vit 40/Iron/Folic/Dha [ Multi-Dha Softgel] 1 each PO DAILY Ipratropium/Albuterol Sulfate [Duoneb 3 ml Ampul] 3 ml NEB RTQ6 #10 vial.neb Levofloxacin [Levaquin 750 mg Tablet] 750 mg PO DAILY #5 tablet 09/13/17 Prednisone [Deltasone 20 mg Tablet] 40 mg PO DAILY 5 Days #5 tablet 09/13/17 Allergies/Adverse Reactions: No Known Allergies Allergy (Verified 09/04/17 16:27) Review of Systems Constitutional: PRESENT: chills, fatigue, fever(s), weakness. ABSENT: headache( s), weight gain, weight loss Eyes: ABSENT: visual disturbances Ears: ABSENT: hearing changes Cardiovascular: PRESENT: dyspnea on exertion. ABSENT: chest pain, edema, orthropnea, palpitations Respiratory: PRESENT: cough, dyspnea. ABSENT: hemoptysis, sputum Gastrointestinal: PRESENT: constipation. ABSENT: abdominal pain, diarrhea, hematemesis, hematochezia, melena, nausea, vomiting Genitourinary: ABSENT: dysuria, hematuria Musculoskeletal: ABSENT: joint swelling Integumentary: ABSENT: rash, wounds Neurological: ABSENT: abnormal gait, abnormal speech, confusion, dizziness, focal weakness, syncope Psychiatric: ABSENT: anxiety, depression, homidical ideation, suicidal ideation Endocrine: ABSENT: cold intolerance, heat intolerance, polydipsia, polyuria Hematologic/Lymphatic: ABSENT: easy bleeding, easy bruising Physical Exam Vital Signs: Temp Pulse Resp BP Pulse Ox 99.9 F 28 H 113/64 93 09/10/17 00:42 09/10/17 00:42 09/10/17 00:42 09/10/17 00:42 General appearance: PRESENT: mild distress, well-developed, well-nourished Head exam: PRESENT: atraumatic, normocephalic Eye exam: PRESENT: conjunctiva pink, EOMI, PERRLA. ABSENT: scleral icterus Ear exam: PRESENT: normal external ear exam Mouth exam: PRESENT: dry mucosa, tongue midline Throat exam: PRESENT: post pharyngeal erythema - Mild Neck exam: PRESENT: lymphadenopathy - Shotty anterior cervical. ABSENT: JVD, thyromegaly, tracheal deviation Respiratory exam: PRESENT: accessory muscle use, rhonchi - Right lower lobe, symmetrical, tachypnea, wheezes - Bilateral end expiratory, other - General poor air excursion. ABSENT: rales, unlabored Cardiovascular exam: PRESENT: RRR, +S1, +S2. ABSENT: diastolic murmur, gallop, rubs, systolic murmur Pulses: PRESENT: normal dorsalis pedis pul Vascular exam: PRESENT: normal capillary refill GI/Abdominal exam: PRESENT: hypoactive bowel sounds, soft. ABSENT: distended, guarding, mass, organolmegaly, rebound, tenderness Rectal exam: PRESENT: deferred Extremities exam: PRESENT: clubbing, full ROM. ABSENT: calf tenderness, pedal edema Neurological exam: PRESENT: alert, awake, oriented to person, oriented to place , oriented to time, oriented to situation, CN II-XII grossly intact. ABSENT: motor sensory deficit Psychiatric exam: PRESENT: appropriate affect, normal mood. ABSENT: homicidal ideation, suicidal ideation Skin exam: PRESENT: dry, intact, warm. ABSENT: cyanosis, rash Results Laboratory Results: 09/10/17 09/10/17 09/10/17 00:47 00:47 00:47 WBC 24.7 H Hgb 13.4 Hct 39.8 Plt Count 253 INR 0.91 VBG pH VBG pCO2 Sodium 138.2 Potassium 3.7 Chloride 99 Carbon Dioxide 28 Anion Gap 11 BUN 10 Creatinine 0.59 Glucose 132 H POC Glucose Lactic Acid Calcium 8.8 Total Bilirubin 0.8 Direct Bilirubin 0.3 AST 30 ALT 36 Alkaline Phosphatase 84 Total Protein 6.2 L Albumin 3.7 09/10/17 09/10/17 09/10/17 00:47 00:47 01:03 WBC Hgb Hct Plt Count INR VBG pH 7.45 H VBG pCO2 44.6 Sodium Potassium Chloride Carbon Dioxide Anion Gap BUN Creatinine Glucose POC Glucose 186 H Lactic Acid 1.9 Calcium Total Bilirubin Direct Bilirubin AST ALT Alkaline Phosphatase Total Protein Albumin Impressions: Chest X-Ray 09/10/17 00:39 IMPRESSION: 1. No acute pulmonary process identified. Status: Imported from PACS Assessment & Plan - Diagnosis (1) Pneumonia Qualifiers: Pneumonia type: due to unspecified organism Laterality: right Lung location: lower lobe of lung Qualified Code(s): J18.1 - Lobar pneumonia, unspecified organism Is this a current diagnosis for this admission?: Yes Plan: Initiate patient on antibiotics for CAP, steroids, and scheduled nebulized breathing treatments pending sputum and blood cultures. (2) Sepsis Qualifiers: Sepsis type: sepsis due to unspecified organism Qualified Code(s): A41.9 - Sepsis, unspecified organism Is this a current diagnosis for this admission?: Yes Plan: Present on admission secondary to pneumonia Selected Entries 09/10/17 09/10/17 00:42 00:54 Temperature 99.9 F Heart Rate ( 110 Monitors) Respiratory 28 H Rate O2 Sat by Pulse 93 Oximetry Oxygen Flow 4 Rate 09/10/17 00:47 WBC 24.7 H (3) COPD exacerbation Is this a current diagnosis for this admission?: Yes Plan: This patient on steroids and scheduled nebulized treatments (4) Acute hypoxemic respiratory failure Is this a current diagnosis for this admission?: Yes Plan: Oxygen as needed and BiPAP if needed (5) Tobacco abuse Is this a current diagnosis for this admission?: Yes Plan: Nicotine replacement and counseled to stop (6) Estrogen replacement therapy Is this a current diagnosis for this admission?: Yes Plan: Have advised patient that she should revisit this topic with her prescriber given her age and concerns for future development of malignancy. (7) Hypothyroidism Qualifiers: Hypothyroidism type: unspecified Qualified Code(s): E03.9 - Hypothyroidism , unspecified Is this a current diagnosis for this admission?: Yes Plan: Continue home Synthroid (8) Abnormal fasting glucose Is this a current diagnosis for this admission?: Yes Plan: Check hemoglobin A1c - Time Time Spent: 30 to 50 Minutes Medications reviewed and adjusted accordingly: Yes Anticipated discharge: Home Within: Other - Upon improvement of symptomatology - Inpatient Certification Based on my medical assessment, after consideration of the patient's comorbidities, presenting symptoms, or acuity I expect that the services needed warrant INPATIENT care.: Yes I certify that my determination is in accordance with my understanding of Medicare's requirements for reasonable and necessary INPATIENT services [42 CFR 412.3e].: Yes Medical Necessity: Need For IV Fluids, Need for Nebulizer Therapy and Monitoring of Response, Need for IV Antibiotics Post Hospital Care: D/C Manager Database Documentation
== END 2017-09-13 14:55 | disposition home or self-care (01) | DRG 189 ==
LOC: ER 00:38 → EH 02:16 → 4N 03:25
PROVIDERS: ADMIT Family Medicine; ATTEND Family Medicine
DX: J96.01 Acute respiratory failure with hypoxia (principal); J44.1 Chronic obstructive pulmonary disease with (acute) exacerbation; J44.0 Chronic obstructive pulmonary disease with (acute) lower respiratory infection; J20.9 Acute bronchitis, unspecified; B95.3 Streptococcus pneumoniae as the cause of diseases classified elsewhere; E03.9 Hypothyroidism, unspecified; F17.210 Nicotine dependence, cigarettes, uncomplicated
CPT/HCPCS: 36415; 71010; 71020; 80048; 80053; 81001; 82803; 82962; 83036; 83605; 85025; 85027; 85610; 87040; 87070; 87077; 87086; 87186; 87205; 93005; 93010; 94640; 94799; 96365; 96368; 96375; 99285; J0456; J0696; J1650; J1885; J1940; J2405; J2920; J2930; J3475; J3490; J7030; J7060; J7512; J7620

== ENCOUNTER 2018-02-15 12:24 | Emergency (ER) | payer SELFPAY ==
--- NOTE | 2018-02-15 13:53 | ER Document Report ---
ED Medical Screen (RME) - General Chief Complaint: Arm Pain Stated Complaint: NECK PAIN Time Seen by Provider: 02/15/18 13:47 Notes: Patient presents with several weeks of right shoulder pain that is worse with movement. She is a smoker and does take estrogen. Patient was noticed to be hypoxic in triage. She denies respiratory symptoms. TRAVEL OUTSIDE OF THE [place] IN LAST 30 DAYS: No - Related Data Allergies/Adverse Reactions: No Known Allergies Allergy (Verified 09/04/17 16:27) Past Medical History - Social History Chew tobacco use (# tins/day): No Frequency of alcohol use: Occasional Drug Abuse: None Pulmonary Medical History: Reports: Hx Bronchitis Endocrine Medical History: Reports: Hx Hypothyroidism Renal/ Medical History: Denies: Hx Peritoneal Dialysis Psychiatric Medical History: Reports: Hx Depression Past Surgical History: Reports: Hx Section, Hx Cholecystectomy, Hx Hysterectomy - Immunizations Hx Diphtheria, Pertussis, Tetanus Vaccination: Yes History of Influenza Vaccine for 07/2017 - 12/2017 Season: Refused Physical Exam - Vital signs Vitals: Temp 97.4 F 02/15/18 12:29 Course - Vital Signs Vital signs: Temp Pulse Resp BP Pulse Ox 97.4 F 80 22 H 107/54 L 89 L 02/15/18 12:29 02/15/18 12:31 02/15/18 13:22 02/15/18 12:31 02/15/18 12:31
--- NOTE | 2018-02-15 14:34 | RADIOLOGY REPORT (SQ) ---
EXAM DESCRIPTION: CHEST 2 VIEWS COMPLETED DATE/TIME: 02/15/2018 2:07 pm REASON FOR STUDY: hypoxia COMPARISON: 09/12/2017 EXAM PARAMETERS: NUMBER OF VIEWS: two views TECHNIQUE: Digital Frontal and Lateral radiographic views of the chest acquired. RADIATION DOSE: NA LIMITATIONS: none FINDINGS: LUNGS AND PLEURA: No opacities, masses or pneumothorax. No pleural effusion. MEDIASTINUM AND HILAR STRUCTURES: No masses or contour abnormalities. HEART AND VASCULAR STRUCTURES: Heart normal size. No evidence for failure. BONES: No acute findings. HARDWARE: None in the chest. OTHER: No other significant finding. IMPRESSION: NO ACUTE RADIOGRAPHIC FINDING IN THE CHEST. TECHNICAL DOCUMENTATION: JOB ID: [id number] [employer]- All Rights Reserved Reading location - IP/workstation name: [email or web address]
--- NOTE | 2018-02-15 14:35 | RADIOLOGY REPORT (SQ) ---
EXAM DESCRIPTION: SHOULDER RIGHT 2 OR MORE VIEWS COMPLETED DATE/TIME: 02/15/2018 2:07 pm REASON FOR STUDY: right shoulder pain COMPARISON: None. NUMBER OF VIEWS: Three views. TECHNIQUE: Internal rotation, external rotation, and Y view images acquired of the right shoulder. LIMITATIONS: None. FINDINGS: MINERALIZATION: Normal. BONES: No acute fracture or dislocation. No worrisome bone lesions. No significant osteophytes. GLENOHUMERAL JOINT: No significant findings. ACROMIOCLAVICULAR JOINT: Mild degenerative changes. SOFT TISSUES: No calcifications. VISUALIZED RIBS, SPINE, AND LUNG: No other significant finding. OTHER: No other significant finding. IMPRESSION: Mild AC joint arthropathy. TECHNICAL DOCUMENTATION: JOB ID: [id number] [employer]- All Rights Reserved Reading location - IP/workstation name: [email or web address]
[2018-02-15] MEDS ORDERED: ACETAMINOPHEN 325 MG TABLET PO ONE (14:48)
[2018-02-15 15:15] LABS: ALANINE AMINOTRANSFERASE 25 U/L (9-52); ALBUMIN 4.2 g/dL (3.5-5.0); ALKALINE PHOSPHATASE 59 U/L (38-126); ANION GAP 6 (5-19); ASPARTATE AMINO TRANSFERASE 21 U/L (14-36); BILIRUBIN,DIRECT 0.2 mg/dL (0.0-0.4); BILIRUBIN,TOTAL 0.3 mg/dL (0.2-1.3); BLOOD UREA NITROGEN 16 mg/dL (7-20); CALCIUM 10.2 mg/dL (8.4-10.2); CARBON DIOXIDE 35 mmol/L (22-30); CHLORIDE 102 mmol/L (98-107); GLUCOSE 87 mg/dL (75-110); POTASSIUM 4.5 mmol/L (3.6-5.0); SODIUM 143.3 mmol/L (137-145); TOTAL PROTEIN 6.8 g/dL (6.3-8.2)
--- NOTE | 2018-02-15 15:23 | ER Document Report ---
HPI - HPI Patient complains to provider of: right shoulder pain Onset: Other - months Onset/Duration: Persistent Pain Level: 5 Context: 57 yo female c/o persistant right shoulder pain for months that is so bad that she can't raise arm above her head or sleep on that side. Has not had any evaluation for it. No radiculopahty. No injury known. Associated Symptoms: None Exacerbated by: Movement Relieved by: Denies Similar symptoms previously: Yes Recently seen / treated by doctor: No - ROS ROS below otherwise negative: Yes Systems Reviewed and Negative: Yes All other systems reviewed and negative - REPRODUCTIVE Reproductive: DENIES: : - DERM Skin Color: Normal Past Medical History - General Information source: Patient - Social History Smoking Status: Current Every Day Smoker Chew tobacco use (# tins/day): No Frequency of alcohol use: Occasional Drug Abuse: None Lives with: Spouse/Significant other Family History: Hypertension Patient has suicidal ideation: No Patient has homicidal ideation: No Pulmonary Medical History: Reports: Hx Bronchitis Endocrine Medical History: Reports: Hx Hypothyroidism Renal/ Medical History: Denies: Hx Peritoneal Dialysis Psychiatric Medical History: Reports: Hx Depression Past Surgical History: Reports: Hx Section, Hx Cholecystectomy, Hx Hysterectomy - Immunizations Hx Diphtheria, Pertussis, Tetanus Vaccination: Yes Hx Pneumococcal Vaccination: 02/04/13 Vertical Provider Document - CONSTITUTIONAL Agree With Documented VS: Yes Exam Limitations: No Limitations General Appearance: No Apparent Distress - INFECTION CONTROL TRAVEL OUTSIDE OF THE [place] IN LAST 30 DAYS: No - HEENT HEENT: Normocephalic - NECK Neck: Supple Notes: tender right trapizius, right periscapular muscles and right deltoid, unable to raise arm above head, joint not flexible. - RESPIRATORY Respiratory: Breath Sounds Normal, No Respiratory Distress - CARDIOVASCULAR Cardiovascular: Regular Rate, Regular Rhythm - MUSCULOSKELETAL/EXTREMETIES Musculoskeletal/Extremeties: Tender - see above. negative: FROM - NEURO Level of Consciousness: Awake, Alert Motor/Sensory: No Motor Deficit, No Sensory Deficit - DERM Integumentary: No Rash Course - Re-evaluation Re-evalutation: 02/15/18 15:21 Pulse ox is 93% in the room on room air. She does have an albuterol metered- dose inhaler and she needs more. - Vital Signs Vital signs: Temp Pulse Resp BP Pulse Ox 97.4 F 80 22 H 107/54 L 89 L 02/15/18 12:29 02/15/18 12:31 02/15/18 13:22 02/15/18 12:31 02/15/18 12:31 - Laboratory Result Diagrams: 02/15/18 14:45 02/15/18 14:45 Laboratory results interpreted by me: 02/15/18 14:45 Carbon Dioxide 35 H Discharge - Discharge Clinical Impression: Chronic right shoulder pain Frozen shoulder Qualifiers: Laterality: right Qualified Code(s): M75.01 - Adhesive capsulitis of right shoulder Condition: Good Disposition: HOME, SELF-CARE Instructions: Anti-Inflammatory Medication ([facility]), [facility], Exercise Program for the Shoulder ([facility]), Shoulder Injury ([facility]) Additional Instructions: Range of motion exercises that we discussed Heat Motrin Muscle relaxer Referral to orthopedics, you may need an MRI of the shoulder joint Prescriptions: RX: Albuterol Sulfate [Proair HFA Inhalation Aerosol 8.5 gm MDI] 2 puff IH Q3HP PRN #1 hfa.aer.ad PRN Reason: Ibuprofen [Motrin 800 mg Tablet] 800 mg PO Q8HP PRN #30 tablet PRN Reason: Cyclobenzaprine HCl [Flexeril 10 Mg Tablet] 10 mg PO TIDP PRN #20 tablet PRN Reason: Referrals: TAURUS ISLAS MD [Primary Care Provider] - Follow up as needed SHAQ DELACRUZ DO [ACTIVE STAFF] - Follow up in 3-5 days
[2018-02-15 15:32] LABS: ABSOLUTE BASOPHILS # (AUTO) 0.1 10^3/uL (0.0-0.2); ABSOLUTE EOSINOPHILS # (AUTO) 0.4 10^3/uL (0.0-0.6); ABSOLUTE LYMPHOCYTES (AUTO) 2.2 10^3/uL (0.5-4.7); ABSOLUTE MONOCYTES (AUTO) 0.6 10^3/uL (0.1-1.4); ABSOLUTE NEUT (AUTO) 5.7 10^3/uL (1.7-8.2); BASOPHILS % (AUTO) 1.2 % (0-2); EOSINOPHILS % (AUTO) 3.9 % (0-6); HEMATOCRIT 42.8 % (36.0-47.0); HEMOGLOBIN 14.4 g/dL (12.0-15.5); LYMPHOCYTES % (AUTO) 24.2 % (13-45); MEAN CORPUSCULAR HEMOGLOBIN 30.5 pg (27.0-33.4); MEAN CORPUSCULAR HGB CONC 33.5 g/dL (32.0-36.0); MEAN CORPUSCULAR VOLUME 91 fl (80-97); PLATELET COUNT 273 10^3/uL (150-450); RED BLOOD COUNT 4.71 10^6/uL (3.72-5.28); RED CELL DISTRIBUTION WIDTH 12.8 % (11.5-14.0); SEGMENTED NEUTROPHILS % (AUTO) 63.7 % (42-78); TOTAL CELLS COUNTED % (AUTO) 100 %
--- NOTE | 2018-02-15 15:43 | RADIOLOGY REPORT (SQ) ---
EXAM DESCRIPTION: VENOUS UNILATERAL UPPER COMPLETED DATE/TIME: 02/15/2018 3:31 pm REASON FOR STUDY: right arm swelling/pain COMPARISON: None. TECHNIQUE: Dynamic and static denise scale and color images acquired of the right arm venous system. S elected spectral images acquired with additional compression and augmentation maneuvers. The contrala teral subclavian vein and internal jugular vein were also imaged. Images stored on PACS. LIMITATIONS: None. FINDINGS: INTERNAL JUGULAR VEIN: Normal phasicity, compression, augmentation. No visualized echogeni c material on denise scale. No defects on color images. Comparison opposite side normal. SUBCLAVIAN VEIN: Normal compression, augmentation. No visualized echogenic material on denise scale. No defects on color images. AXILLARY VEIN: Normal compression, augmentation. No visualized echogenic material on denise scale. No d efects on color images. BRACHIAL VEIN: Normal compression, augmentation. No visualized echogenic material on denise scale. No d efects on color images. BASILIC VEIN: Normal compression, augmentation. No visualized echogenic material on denise scale. No de fects on color images. CEPHALIC VEIN: Normal compression, augmentation. No visualized echogenic material on denise scale. No d efects on color images. OTHER: No other significant finding. CONTRALATERAL SUBCLAVIAN VEIN AND INTERNAL JUGULAR VEIN: Normal phasicity, compression and augmentation. No visualized echogenic material on denise scale. No de fects on color images. IMPRESSION: NO EVIDENCE DVT OR SVT IN THE RIGHT ARM. TECHNICAL DOCUMENTATION: JOB ID: [id number] [employer]- All Rights Reserved Reading location - IP/workstation name: [email or web address]
[2018-02-15] MEDS ORDERED: ALBUTEROL SULFATE HFA (90 MCG/PUFF) 8 GM MDI (1 MDI/ER DISP) IH PRN (15:44)
[2018-02-15 15:48] VITALS: BP 115/38
== END 2018-02-15 15:48 | disposition home or self-care (01) ==
LOC: ER 12:24
DX: M75.01 Adhesive capsulitis of right shoulder (principal); M25.511 Pain in right shoulder; G89.29 Other chronic pain; F17.200 Nicotine dependence, unspecified, uncomplicated
CPT/HCPCS: 99284; 36415; 85025; 80053; 93971; 71046; 73030; J3490

== ENCOUNTER 2018-05-25 16:56 | Emergency (ER) | payer SELFPAY ==
--- NOTE | 2018-05-25 18:50 | ER Document Report ---
ED ENT - General Chief Complaint: Sore Throat Stated Complaint: SORE THROAT/FEVER Time Seen by Provider: 05/25/18 18:19 Mode of Arrival: Ambulatory Information source: Patient Notes: 57-year-old female presents to ED for complaint of sore throat ear pain fever postnasal drip and headache since yesterday. She is alert and oriented respirations regular and unlabored speaking in full sentences. She is able to walk with a even steady gait. TRAVEL OUTSIDE OF THE [place] IN LAST 30 DAYS: No - HPI Patient complains to provider of: Ear problem, Nose problem, Throat problem Onset: Yesterday Onset/Duration: Gradual Quality of pain: Achy, Sharp Severity: Moderate Pain Level: 4 Context: Recent Illness Location of pain: Ears, Nose, Sinus, Throat, Other - Headache Associated symptoms: Ear pain, Fever, Headache, Runny nose, Sinus pain, Sinus drainage, Sore throat Similar symptoms previously: Yes Recently seen / treated by doctor: No - Related Data Allergies/Adverse Reactions: No Known Allergies Allergy (Verified 09/04/17 16:27) Past Medical History - General Information source: Patient - Social History Smoking Status: Current Every Day Smoker Cigarette use (# per day): Yes - 1-1/2 packs per day Chew tobacco use (# tins/day): No Smoking Education Provided: Yes - 4 minutes Frequency of alcohol use: Occasional Drug Abuse: None Occupation: None Lives with: Spouse/Significant other Family History: Hypertension Patient has suicidal ideation: No Patient has homicidal ideation: No - Past Medical History Cardiac Medical History: Reports: None Pulmonary Medical History: Reports: Hx Bronchitis, Hx COPD EENT Medical History: Reports: None Neurological Medical History: Reports: None Endocrine Medical History: Reports: Hx Hypothyroidism Renal/ Medical History: Reports: None Malignancy Medical History: Reports: None GI Medical History: Reports: None Musculoskeletal Medical History: Reports Hx Arthritis, Reports Hx Musculoskeletal Trauma Skin Medical History: Reports None Psychiatric Medical History: Reports: Hx Depression Traumatic Medical History: Reports: Hx Fractures - Right arm Infectious Medical History: Reports: None Past Surgical History: Reports: Hx Section, Hx Cholecystectomy, Hx Hysterectomy - Immunizations Hx Diphtheria, Pertussis, Tetanus Vaccination: Yes Hx Pneumococcal Vaccination: 02/04/13 Review of Systems - Review of Systems Constitutional: Chills, Fever, Recent illness EENT: Ear pain, Nose congestion, Nose discharge, Sinus pressure, Sinus discharge , Throat pain Cardiovascular: No symptoms reported Respiratory: Cough Gastrointestinal: No symptoms reported Genitourinary: No symptoms reported Female Genitourinary: No symptoms reported Musculoskeletal: No symptoms reported Skin: No symptoms reported Hematologic/Lymphatic: No symptoms reported Neurological/Psychological: No symptoms reported -: Yes All other systems reviewed and negative Physical Exam - Vital signs Vitals: Temp Pulse Resp BP Pulse Ox 98.4 F 81 20 137/63 H 93 05/25/18 17:10 05/25/18 17:10 05/25/18 17:10 05/25/18 17:10 05/25/18 17:10 Interpretation: Normal - General General appearance: Appears well, Alert - HEENT Head: Normocephalic, Atraumatic Eyes: Normal Pupils: PERRL Ears: Normal External canal: Normal Tympanic membrane: Normal Sinus: Normal Nasal: Purulent discharge, Swelling Mouth/Lips: Normal Mucous membranes: Normal Pharynx: Erythema, Post nasal drainage. No: Exudate, Tonsillar hypertrophy Neck: Anterior cervical chain - Respiratory Respiratory status: No respiratory distress Chest status: Nontender Breath sounds: Normal Chest palpation: Normal - Cardiovascular Rhythm: Regular Heart sounds: Normal auscultation Murmur: No - Abdominal Inspection: Normal Distension: No distension Bowel sounds: Normal Tenderness: Nontender Organomegaly: No organomegaly - Back Back: Normal, Nontender - Extremities General upper extremity: Normal inspection, Nontender, Normal color, Normal ROM , Normal temperature General lower extremity: Normal inspection, Nontender, Normal color, Normal ROM , Normal temperature, Normal weight bearing. No: Ba's sign - Neurological Neuro grossly intact: Yes Cognition: Normal Orientation: AAOx4 [place] Coma Scale Eye Opening: Spontaneous Pee Coma Scale Verbal: Oriented Pee Coma Scale Motor: Obeys Commands [place] Coma Scale Total: 15 Speech: Normal Motor strength normal: LUE, RUE, LLE, RLE Sensory: Normal - Psychological Associated symptoms: Normal affect, Normal mood - Skin Skin Temperature: Warm Skin Moisture: Dry Skin Color: Normal Course - Re-evaluation Re-evalutation: 05/25/18 20:55 Strep test results discussed with patient and written report given to patient. Patient was instructed on use of Tylenol Motrin cough and cold symptoms treatments. Patient to follow-up with her primary doctor. Patient verbalized understanding of instructions. After performing a Medical Screening Examination , I estimate there is LOW risk for ACUTE CORONARY SYNDROME, RESPIRATORY FAILURE , SEPSIS OR MENINGITIS, thus I consider the discharge disposition reasonable. I have reevaluated this patient multiple times and no significant life threatening changes are noted. The patient and I have discussed the diagnosis and risks, and we agree with discharging home with close follow-up. We also discussed returning to the Emergency Department immediately if new or worsening symptoms occur. We have discussed the symptoms which are most concerning (e.g., changing or worsening pain, trouble swallowing or breathing, neck stiffness, fever) that necessitate immediate return. - Vital Signs Vital signs: Temp Pulse Resp BP Pulse Ox 98.3 F 72 18 126/73 H 92 05/25/18 19:34 05/25/18 19:34 05/25/18 19:34 05/25/18 19:34 05/25/18 19:34 Discharge - Discharge Clinical Impression: Viral sore throat, Otalgia of both ears URI (upper respiratory infection) Qualifiers: URI type: unspecified URI Qualified Code(s): J06.9 - Acute upper respiratory infection, unspecified Condition: Stable Disposition: HOME, SELF-CARE Additional Instructions: SORE THROAT: Sore throats may be caused by viruses, bacteria, or fungi. Most are due to a virus, and must get better on their own. Bacterial sore throats, particularly those due to "strep," need treatment with antibiotics. If an antibiotic is prescribed, be sure to take the medication for a full 10 days. Failure to take the antibiotic can result in complications such as rheumatic fever. Sometimes, an injection of antibiotics is given instead of pills or liquid. This single "shot" is equal in effectiveness to the oral medication. To relieve symptoms, take acetaminophen for pain. Sip clear liquids frequently, or eat popsicles or ice chips. Anesthetic sprays or lozenges may help. Make sure the air in the room is not too dry. Avoid using decongestants or antihistamines. Call the doctor if there is no improvement in two days, or if you have difficulty breathing, increasing throat pain, high fever, rash, or frequent vomiting. UPPER RESPIRATORY ILLNESS: You have a viral infection of the respiratory passages -- a "cold." This common infection causes nasal congestion, drainage, and often sore throat and cough. It is highly contagious. The disease usually lasts about 10 to 14 days. There is no "cure" for the viral infection -- it must run its course. If there is a complication, such as bacterial infection in the nose, sinuses, middle ear, or bronchial tubes, antibiotics may be required. The antibiotics won't affect the virus. Drink plenty of fluids. A humidifier may help. An expectorant medication or decongestant may make you more comfortable. Use acetaminophen or ibuprofen for fever or aches. See the doctor if fever persists over two days, if there is any significant worsening of your symptoms, or if you simply fail to improve as expected. DECONGESTANT MEDICATION: A decongestant medicine has been suggested. Often this medicine is combined in the same tablet with an antihistamine or expectorant. This type of medicine is helpful in treating a bad cold or sinus condition, as well as in treatment of the nasal congestion of hay fever. It is not of much benefit for lung infections. Decongestant medicines are related to stimulants. They can cause an increase in blood pressure and heart rate. Persons with heart disease and high blood pressure should not take decongestants without discussing this with the physician. If you develop palpitations, chest pain, headache, or tremors, stop the medicine and consult your physician. INHALED BRONCHODILATORS: You have received a treatment of and/or prescription for an inhaled bronchodilator -- a medication which stimulates the airways in the lung to dilate. This improves the flow of air in asthma, bronchitis, and emphysema. These medicines have some similarity to adrenaline, and can cause similar side effects: shakiness, racing heart, and a sense of nervousness. These side effects decrease with time. Contact your doctor if these side effects are severe. Do not over-use the medicine. Too-frequent use of the inhaler may make it ineffective. Call your doctor if the inhaler is not controlling your symptoms at the prescribed doses. USE OF ACETAMINOPHEN (Tylenol): Acetaminophen may be taken for pain relief or fever control. It's much safer than aspirin, offering a wider range of "safe" dosages. It is safe during . Some brand names are Tylenol, Panadol, Datril, Anacin 3, Tempra, and Liquiprin. Acetaminophen can be repeated every four hours. The following are maximum recommended dosages: >89 pounds or adults 650 mg to 900 mg Acetaminophen can be repeated every four hours. Maximum dose not to exceed 4000 mg a day. SMOKING: If you smoke, you should stop smoking. The tar and chemicals in cigarette smoke are harmful. Smoking has been shown to cause: emphysema chronic bronchitis lung cancer mouth and throat cancer stomach and pancreas cancer premature aging defects In addition, smoking increases ear and lung infections in children of smokers. FOLLOW-UP CARE: If you have been referred to a physician for follow-up care, call the physician s office for an appointment as you were instructed or within the next two days. If you experience worsening or a significant change in your symptoms, notify the physician immediately or return to the Emergency Department at any time for re-evaluation. Forms: Elevated Blood Pressure, Smoking Cessation Education Referrals: TAURUS ISLAS MD [HONORARY] - Follow up in 3-5 days
[2018-05-25 19:38] VITALS: BP 126/73
== END 2018-05-25 19:40 | disposition home or self-care (01) ==
LOC: ER 16:56
DX: J06.9 Acute upper respiratory infection, unspecified (principal); J02.9 Acute pharyngitis, unspecified; H92.03 Otalgia, bilateral; F17.210 Nicotine dependence, cigarettes, uncomplicated; J44.9 Chronic obstructive pulmonary disease, unspecified; Z90.49 Acquired absence of other specified parts of digestive tract; Z90.710 Acquired absence of both cervix and uterus
CPT/HCPCS: 87070; 87880; 99283; 99406

== ENCOUNTER 2018-07-26 13:22 | Emergency (ER) | payer SELFPAY ==
[2018-07-26] MEDS ORDERED: DEXAMETHASONE SOD PHOS INJ 10 MG/1 ML VIAL IM ONE (13:49)
[2018-07-26] MEDS ORDERED: IPRATROPIUM/ALBUTEROL 0.5-2.5 MG/3 ML AMPUL NEB ONE (13:49)
--- NOTE | 2018-07-26 13:51 | ER Document Report ---
HPI - HPI Pain Level: 3 Notes: Patient is a 57-year-old female with a history of tobacco abuse, COPD, hypothyroidism who presents to the ED complaining of nasal congestion/discharge , sinus pressure, dry nonproductive cough, wheezing over the last 5-7 days. Patient states that she is still eating and drinking without any difficulties. She is urinating normally and having normal bowel movements. She denies any drug allergies. Denies any other significant cardiopulmonary medical history. Patient is still able to ambulate without any dyspnea on exertion or development of any chest pains. Denies any headache, fever, neck pain, sore throat, chest pain, palpitations, syncope, shortness of breath, dyspnea, abdominal pain, nausea/vomiting/diarrhea, urinary retention, dysuria, hematuria , or rash. - ROS Systems Reviewed and Negative: Yes All other systems reviewed and negative - REPRODUCTIVE Reproductive: DENIES: : Past Medical History - Social History Smoking Status: Current Some Day Smoker Family History: Hypertension Pulmonary Medical History: Reports: Hx Bronchitis, Hx COPD Endocrine Medical History: Reports: Hx Hypothyroidism Renal/ Medical History: Denies: Hx Peritoneal Dialysis Musculoskeletal Medical History: Reports Hx Arthritis, Reports Hx Musculoskeletal Trauma Psychiatric Medical History: Reports: Hx Depression Traumatic Medical History: Reports: Hx Fractures - Right arm Past Surgical History: Reports: Hx Section, Hx Cholecystectomy, Hx Hysterectomy - Immunizations Hx Diphtheria, Pertussis, Tetanus Vaccination: Yes Hx Pneumococcal Vaccination: 02/04/13 Vertical Provider Document - CONSTITUTIONAL Agree With Documented VS: Yes Notes: PHYSICAL EXAMINATION: GENERAL: Well-appearing, well-nourished and in no acute distress. A&Ox4. Answers questions appropriately. Moves comfortably w/o notable distress HEAD: Atraumatic, normocephalic. EYES: Pupils equal round and reactive to light, extraocular movements intact, sclera anicteric, conjunctiva are normal. ENT: EAC clear b/l. TM's intact b/l without erythema, fluid, or perforation. Nares patent and with clear discharge. oropharynx no erythema without exudates. No tonsilar hypertrophy without erythema or exudate. No palatine shift. Uvula midline. No tongue protrusion. No drooling, hoarseness, or airway compromise. Moist mucous membranes. No sinus tenderness. NECK: Normal range of motion, supple without lymphadenopathy. No rigidity/ meningismus. LUNGS: Wheezing bilaterally. No obvious crackles. No retractions HEART: Regular rate and rhythm without murmurs, rubs, gallops. ABDOMEN: Soft, nontender, nondistended abdomen. No guarding, no rebound. No masses appreciated. Normal bowel sounds present. No CVA tenderness bilaterally. NEUROLOGICAL: Normal speech, normal gait. PSYCH: Normal mood, normal affect. SKIN: Warm, Dry, normal turgor, no rashes or lesions noted. - INFECTION CONTROL TRAVEL OUTSIDE OF THE [place] IN LAST 30 DAYS: No Course - Re-evaluation Re-evalutation: 07/26/18 14:55 Patient is an afebrile, well-hydrated, 57-year-old female who presents to the ED with acute URI, suspect viral. Vitals are acceptable w/o any significant tachycardia, tachypnea, or hypoxia. PE is otherwise unremarkable. Chest x-ray was unremarkable for any acute pathology. Patient has no significant cardiopulmonary or immunocompromised medical conditions aside from COPD. Patient was given Decadron, alb neb, and DuoNeb which improved her lung sounds. Patient is tolerating p.o. without any difficulties. Patient states that she is feeling much better after the treatment. No further labs or imaging warranted at this time based on H&P. Low suspicion for any meningitis, sepsis, peritonsillar/pharyngeal abscess, respiratory compromise, severe dehydration, or other emergent systemic condition at this time. Patient is aware this condition can change from initial presentation and she needs to monitor symptoms closely. I will send her home with a prescription for an inhaler as well as Tessalon Perles. Conservative measures otherwise for symptoms. Recheck with your PCM in 3-5 days. Return to the ED with any worsening/ concerning symptoms otherwise as reviewed in discharge. Patient is in agreement. - Vital Signs Vital signs: Temp Pulse Resp BP Pulse Ox 97.9 F 91 18 103/65 96 07/26/18 13:35 07/26/18 13:35 07/26/18 13:35 07/26/18 13:35 07/26/18 13:35 Discharge - Discharge Clinical Impression: Acute URI Condition: Stable Disposition: HOME, SELF-CARE Instructions: Upper Respiratory Illness ([facility]) Additional Instructions: Maintain adequate fluid intake Take meds as directed tylenol/ibuprofen as needed over the counter cold medication as needed for symptoms Humidified air may help Wash your hands regularly Wear a mask when coughing F/u: with your PCM in 3-5 days for a recheck Return to the ED with any fever, worsening pain, chest pain, palpitations, syncope, worsening [place], neck pain/stiffness, shortness of breath, wheezing, drooling, trouble swallowing/breathing, abdominal pain, n/v/d, rash, or worsening/concerning symptoms otherwise. Prescriptions: Benzonatate [Tessalon Perle 100 mg Capsule] 100 mg PO Q8HP PRN #15 cap PRN Reason: Albuterol Sulfate [Proair HFA Inhalation Aerosol 8.5 gm MDI] 2 puff IH Q4H PRN # 1 mdi PRN Reason: Forms: Smoking Cessation Education Referrals: [facility] [Provider Group] - Follow up in 3-5 days
--- NOTE | 2018-07-26 14:16 | RADIOLOGY REPORT (SQ) ---
EXAM DESCRIPTION: CHEST 2 VIEWS COMPLETED DATE/TIME: 07/26/2018 2:07 pm REASON FOR STUDY: cough, wheeze COMPARISON: 02/15/2018. EXAM PARAMETERS: NUMBER OF VIEWS: two views TECHNIQUE: Digital Frontal and Lateral radiographic views of the chest acquired. RADIATION DOSE: NA LIMITATIONS: none FINDINGS: LUNGS AND PLEURA: No acute infiltrates or effusions. MEDIASTINUM AND HILAR STRUCTURES: No masses or contour abnormalities. HEART AND VASCULAR STRUCTURES: The heart is normal with normal pulmonary vasculature. BONES: Dorsal scoliosis convex right. HARDWARE: None in the chest. OTHER: No other significant finding. IMPRESSION: NO ACUTE RADIOGRAPHIC FINDING IN THE CHEST. TECHNICAL DOCUMENTATION: JOB ID: [id number] [employer]- All Rights Reserved Reading location - IP/workstation name: [email or web address]
[2018-07-26] MEDS ORDERED: ALBUTEROL SULFATE 0.083% NEB 2.5 MG/3 ML AMPUL NEB ONE ×3 (14:38→15:06)
[2018-07-26 15:03] VITALS: BP 113/60
== END 2018-07-26 15:07 | disposition home or self-care (01) ==
LOC: ER 13:22
DX: J06.9 Acute upper respiratory infection, unspecified (principal); J44.9 Chronic obstructive pulmonary disease, unspecified; J34.89 Other specified disorders of nose and nasal sinuses; R05 Cough; F17.200 Nicotine dependence, unspecified, uncomplicated
CPT/HCPCS: 94640 ×2; 99283; 96372; 71046; J1100; J7620

== ENCOUNTER → 2018-09-20 | Outpatient (CLI) | payer OTHER ==
[2018-09-20 12:18] LABS: ABSOLUTE BASOPHILS # (AUTO) 0.1 10^3/uL (0.0-0.2); ABSOLUTE EOSINOPHILS # (AUTO) 0.6 10^3/uL (0.0-0.6); ABSOLUTE LYMPHOCYTES (AUTO) 2.1 10^3/uL (0.5-4.7); ABSOLUTE MONOCYTES (AUTO) 0.5 10^3/uL (0.1-1.4); ABSOLUTE NEUT (AUTO) 5.6 10^3/uL (1.7-8.2); BASOPHILS % (AUTO) 1.3 % (0-2); EOSINOPHILS % (AUTO) 6.9 % (0-6); HEMATOCRIT 45.7 % (36.0-47.0); HEMOGLOBIN 15.4 g/dL (12.0-15.5); LYMPHOCYTES % (AUTO) 23.8 % (13-45); MEAN CORPUSCULAR HEMOGLOBIN 30.6 pg (27.0-33.4); MEAN CORPUSCULAR HGB CONC 33.8 g/dL (32.0-36.0); MEAN CORPUSCULAR VOLUME 91 fl (80-97); MONOCYTES % (AUTO) 5.7 % (3-13); PLATELET COUNT 295 10^3/uL (150-450); RED BLOOD COUNT 5.04 10^6/uL (3.72-5.28); RED CELL DISTRIBUTION WIDTH 13.7 % (11.5-14.0); SEGMENTED NEUTROPHILS % (AUTO) 62.3 % (42-78); TOTAL CELLS COUNTED % (AUTO) 100 %
[2018-09-20 12:43] LABS: ALANINE AMINOTRANSFERASE 25 U/L (9-52); ALBUMIN 4.3 g/dL (3.5-5.0); ALKALINE PHOSPHATASE 69 U/L (38-126); ANION GAP 10 (5-19); ASPARTATE AMINO TRANSFERASE 24 U/L (14-36); BILIRUBIN,DIRECT 0.2 mg/dL (0.0-0.4); BILIRUBIN,TOTAL 0.5 mg/dL (0.2-1.3); BLOOD UREA NITROGEN 16 mg/dL (7-20); CARBON DIOXIDE 33 mmol/L (22-30); CHLORIDE 100 mmol/L (98-107); CHOLESTEROL 213.46 mg/dL (0-200); GLUCOSE 85 mg/dL (75-110); POTASSIUM 4.8 mmol/L (3.6-5.0); SODIUM 142.6 mmol/L (137-145); TOTAL PROTEIN 7.4 g/dL (6.3-8.2); TRIGLYCERIDES 201 mg/dL (<150)
[2018-09-20 12:54] LABS: DIRECT LDL 96 mg/dL (<100)
[2018-09-20 12:55] LABS: VLDL CHOLESTEROL 40.2 mg/dL (10-31)
== END ==
LOC: CCC 11:10
DX: Z00.00 Encounter for general adult medical examination without abnormal findings (principal); E03.9 Hypothyroidism, unspecified
CPT/HCPCS: 36415; 80053; 80061; 83036; 84443; 85025

== ENCOUNTER 2018-09-27 13:24 | Inpatient (IN) | payer SELFPAY ==
--- NOTE | 2018-09-27 14:04 | ER Document Report ---
ED Medical Screen (RME) - General Chief Complaint: Flu Symptoms Stated Complaint: CHEST PAIN,SHORTNESS OF BREATH Time Seen by Provider: 09/27/18 14:00 Mode of Arrival: Ambulatory Information source: Patient Notes: This is a 58-year-old female with a history of COPD who presents to the emergency room with shortness of breath, fever, cough. TRAVEL OUTSIDE OF THE [place] IN LAST 30 DAYS: No - Related Data Allergies/Adverse Reactions: No Known Allergies Allergy (Verified 09/27/18 13:57) Past Medical History - Social History Chew tobacco use (# tins/day): No Drug Abuse: None Pulmonary Medical History: Reports: Hx Bronchitis, Hx COPD Endocrine Medical History: Reports: Hx Hypothyroidism Renal/ Medical History: Denies: Hx Peritoneal Dialysis Musculoskeltal Medical History: Reports Hx Arthritis, Reports Hx Musculoskeletal Trauma Psychiatric Medical History: Reports: Hx Depression Traumatic Medical History: Reports: Hx Fractures - Right arm Past Surgical History: Reports: Hx Section, Hx Cholecystectomy, Hx Hysterectomy - Immunizations Hx Diphtheria, Pertussis, Tetanus Vaccination: Yes History of Influenza Vaccine for 07/2017 - 12/2017 Season: Refused Physical Exam - Vital signs Vitals: Temp Pulse Resp BP Pulse Ox 99.1 F 107 H 16 102/53 L 83 L 09/27/18 13:41 09/27/18 13:41 09/27/18 13:41 09/27/18 13:41 09/27/18 13:41 Course - Vital Signs Vital signs: Temp Pulse Resp BP Pulse Ox 99.1 F 107 H 18 102/53 L 83 L 09/27/18 13:41 09/27/18 13:41 09/27/18 13:51 09/27/18 13:41 09/27/18 13:41 Doctor's Discharge - Discharge Referrals: [facility] [Primary Care Provider] - Follow up as needed
[2018-09-27] MEDS ORDERED: IPRATROPIUM/ALBUTEROL 0.5-2.5 MG/3 ML AMPUL NEB ONE (14:07)
[2018-09-27] MEDS ORDERED: NORMAL SALINE 1000 ML 1,000 ML IV ONE (14:28)
[2018-09-27] MEDS ORDERED: METHYLPREDNISOLONE INJ 125 MG/2 ML SDV IV ONE (14:28)
[2018-09-27] MEDS ORDERED: ALBUTEROL SULFATE 0.083% NEB 2.5 MG/3 ML AMPUL NEB ONE (14:28)
[2018-09-27] MEDS ORDERED: AZITHROMYCIN INJ 500 MG VIAL IV ONE (14:29)
[2018-09-27] MEDS ORDERED: CEFTRIAXONE INJ 1000 MG VIAL IV ONE (14:29)
--- NOTE | 2018-09-27 14:33 | ER Document Report ---
ED General - General Chief Complaint: Flu Symptoms Stated Complaint: CHEST PAIN,SHORTNESS OF BREATH Time Seen by Provider: 09/27/18 14:00 Mode of Arrival: Ambulatory TRAVEL OUTSIDE OF THE [place] IN LAST 30 DAYS: No - HPI Notes: Patient is a 58-year-old female that presents to the emergency department for chief complaint of shortness of breath. Patient reports 3-4 days of increasing shortness of breath. She is having a productive cough. She reports a fever of 103 at home. She states she has have a history of COPD but has been out of her home albuterol. She also has a history of pneumonia which has required admission to the hospital and states this feels similar. She is reporting a right-sided chest pain that is worse with inspiration and coughing. The pain radiates into the right side of her neck and right upper abdomen. She denies history of DVT or PE. She denies any leg swelling. She is on estrogen replacement hormones currently. Past Medical History: COPD, hyperthyroidism Past Surgical History: Hysterectomy Social History: Daily tobacco, denies drug and alcohol use Family History: Reviewed and noncontributory for presenting illness Allergies: Reviewed, see documented allergy list. REVIEW OF SYSTEMS: CONSTITUTIONAL : fever chills No diaphoresis No recent illness EENT: No vision changes congestion No sore throat CARDIOVASCULAR: chest pain No palpitations RESPIRATORY: shortness of breath cough difficulty breathing GASTROINTESTINAL: No abdominal pain No nausea No vomiting No diarrhea GENITOURINARY: No dysuria No hematuria No difficulty urinating MUSCULOSKELETAL: No back pain No leg pain No arm pain SKIN: No rashes No lesions LYMPHATIC: No swollen, enlarged glands. NEUROLOGICAL: No lightheadedness No headache No weakness No paresthesias PSYCHIATRIC: No anxiety No depression PHYSICAL EXAMINATION: Vital signs reviewed, nursing noted reviewed. GENERAL: Well-appearing, well-nourished and in no acute distress. HEAD: Atraumatic, normocephalic. EYES: Eyes appear normal, extraocular movements intact, sclera anicteric, conjunctiva are normal. ENT: nares patent, oropharynx clear without exudates. Moist mucous membranes. NECK: Normal range of motion, supple without lymphadenopathy LUNGS: Significantly diminished lung sounds bilaterally. Mild accessory muscle use. Tachypnea. HEART: Regular rate and rhythm without murmurs ABDOMEN: Soft, nontender, normoactive bowel sounds. No rebound, guarding, or rigidity. No masses appreciated. EXTREMITIES: Nontender, good range of motion, no pitting or edema. NEUROLOGICAL: No focal neurological deficits. Moves all extremities spontaneously Motor and sensory grossly intact on exam. PSYCH: Normal mood, normal affect. SKIN: Warm, Dry, normal turgor, no rashes or lesions noted on exposed skin - Related Data Allergies/Adverse Reactions: No Known Allergies Allergy (Verified 09/27/18 13:57) Past Medical History - General Information source: Patient - Social History Smoking Status: Current Some Day Smoker Chew tobacco use (# tins/day): No Drug Abuse: None Family History: Hypertension Patient has suicidal ideation: No Patient has homicidal ideation: No Pulmonary Medical History: Reports: Hx Bronchitis, Hx COPD Endocrine Medical History: Reports: Hx Hypothyroidism Renal/ Medical History: Denies: Hx Peritoneal Dialysis Musculoskeletal Medical History: Reports Hx Arthritis, Reports Hx Musculoskeletal Trauma Psychiatric Medical History: Reports: Hx Depression Traumatic Medical History: Reports: Hx Fractures - Right arm Past Surgical History: Reports: Hx Section, Hx Cholecystectomy, Hx Hysterectomy - Immunizations Hx Diphtheria, Pertussis, Tetanus Vaccination: Yes Hx Pneumococcal Vaccination: 02/04/13 Physical Exam - Vital signs Vitals: Temp Pulse Resp BP Pulse Ox 99.1 F 107 H 16 102/53 L 83 L 09/27/18 13:41 09/27/18 13:41 09/27/18 13:41 09/27/18 13:41 09/27/18 13:41 Course - Re-evaluation Re-evalutation: 09/27/18 14:32 Vitals reviewed. Nursing notes reviewed. Patient started on breathing treatments and Solu-Medrol for concern of COPD exacerbation. She was hypoxic at 82% on room air and placed on 4 L nasal cannula which increased her oxygen saturation into the 90s. Her EKG shows similar T wave inversions to previous with no acute ST elevations. Patient is tachycardic and tachypneic and complaining of fevers at home, she is meeting Sirs criteria. Lactate and blood cultures will be obtained. Patient given a dose of Rocephin and azithromycin for presumed pneumonia given her clinical presentation. 09/27/18 16:07 Patient reevaluated after aerosols and states she is feeling much better. She does have improvement of lung sounds but is still significantly diminished. Patient is currently on 3 L nasal cannula and oxygenating at 96%. She is not tachypneic and is breathing comfortably. Chest x-ray shows no underlying pneumonia. She does have a leukocytosis on lab work. ABG shows a normal pH with no hypercapnia or hypoxia. ABG was obtained on 4 L nasal cannula. Patient will be admitted to the hospital for hypoxia and COPD exacerbation. Case discussed with Dr. Boss who is accepted admission. CTA chest was obtained today to evaluate for underlying pulmonary embolism since patient is on exaggerations estrogens and complaining of a pleuritic right-sided chest pain. This test is currently pending and Dr. Boss will follow the results. On my review of the CTA chest there is no large central pulmonary embolism. Laboratory 09/27/18 09/27/18 09/27/18 14:07 14:08 14:08 WBC 18.3 H RBC 4.85 Hgb 14.7 Hct 43.9 MCV 91 MCH 30.3 MCHC 33.5 RDW 13.5 Plt Count 250 Seg Neutrophils % 85.4 H Lymphocytes % 7.7 L Monocytes % 5.6 Eosinophils % 1.0 Basophils % 0.3 Absolute Neutrophils 15.7 H Absolute Lymphocytes 1.4 Absolute Monocytes 1.0 Absolute Eosinophils 0.2 Absolute Basophils 0.1 Carbonic Acid HCO3/H2CO3 Ratio ABG pH ABG pCO2 ABG pO2 ABG HCO3 ABG Total CO2 ABG O2 Saturation ABG Base Excess FiO2 Sodium 139.5 Potassium 4.7 Chloride 97 L Carbon Dioxide 31 H Anion Gap 12 BUN 10 Creatinine 0.64 Est GFR ( Amer) > 60 Est GFR (Non-Af Amer) > 60 Glucose 104 Lactic Acid Calcium 9.7 Total Bilirubin 0.8 Direct Bilirubin 0.3 Neonat Total Bilirubin Not Reportable Neonat Direct Bilirubin Not Reportable Neonat Indirect Bili Not Reportable AST 36 ALT 20 Alkaline Phosphatase 110 Creatine Kinase 34 CK-MB (CK-2) Troponin I < 0.012 Total Protein 7.8 Albumin 4.4 09/27/18 09/27/18 09/27/18 14:08 14:08 14:51 WBC RBC Hgb Hct MCV MCH MCHC RDW Plt Count Seg Neutrophils % Lymphocytes % Monocytes % Eosinophils % Basophils % Absolute Neutrophils Absolute Lymphocytes Absolute Monocytes Absolute Eosinophils Absolute Basophils Carbonic Acid 1.28 HCO3/H2CO3 Ratio 21:1 ABG pH 7.43 ABG pCO2 42.4 ABG pO2 84.6 ABG HCO3 27.8 H ABG Total CO2 29.1 H ABG O2 Saturation 96.6 ABG Base Excess 3.1 FiO2 4L Sodium Potassium Chloride Carbon Dioxide Anion Gap BUN Creatinine Est GFR ( Amer) Est GFR (Non-Af Amer) Glucose Lactic Acid 1.0 Calcium Total Bilirubin Direct Bilirubin Neonat Total Bilirubin Neonat Direct Bilirubin Neonat Indirect Bili AST ALT Alkaline Phosphatase Creatine Kinase CK-MB (CK-2) 0.37 Troponin I Total Protein Albumin Chest X-Ray 09/27/18 14:07 IMPRESSION: No acute abnormality of the lungs in AP projection. No new airspace opacity. - Vital Signs Vital signs: Temp Pulse Resp BP Pulse Ox 99.1 F 107 H 31 H 110/47 L 100 09/27/18 13:41 09/27/18 13:41 09/27/18 15:01 09/27/18 15:01 09/27/18 15:01 - Laboratory Result Diagrams: 09/27/18 14:08 09/27/18 14:08 Laboratory results interpreted by me: 09/27/18 09/27/18 09/27/18 14:08 14:08 14:51 WBC 18.3 H Seg Neutrophils % 85.4 H Lymphocytes % 7.7 L Absolute Neutrophils 15.7 H ABG HCO3 27.8 H ABG Total CO2 29.1 H Chloride 97 L Carbon Dioxide 31 H - EKG Interpretation by Me Additional EKG results interpreted by me: 09/27/18 14:33 Interpreted by myself [id number]: Sinus tachycardia, rate 103, normal axis, no ectopy, T wave inversions V1 through V5 similar to 09/10/17 Discharge - Discharge Clinical Impression: COPD exacerbation, Hypoxia, Cough Leukocytosis Qualifiers: Leukocytosis type: unspecified Qualified Code(s): D72.829 - Elevated white blood cell count, unspecified Condition: Stable Disposition: ADMITTED INPATIENT Admitting Provider: Hospitalist Unit Admitted: Telemetry Referrals: [facility] [Primary Care Provider] - Follow up as needed
[2018-09-27 14:40] LABS: ABSOLUTE BASOPHILS # (AUTO) 0.1 10^3/uL (0.0-0.2); ABSOLUTE EOSINOPHILS # (AUTO) 0.2 10^3/uL (0.0-0.6); ABSOLUTE LYMPHOCYTES (AUTO) 1.4 10^3/uL (0.5-4.7); ABSOLUTE NEUT (AUTO) 15.7 10^3/uL (1.7-8.2); BASOPHILS % (AUTO) 0.3 % (0-2); HEMATOCRIT 43.9 % (36.0-47.0); HEMOGLOBIN 14.7 g/dL (12.0-15.5); LYMPHOCYTES % (AUTO) 7.7 % (13-45); MEAN CORPUSCULAR HEMOGLOBIN 30.3 pg (27.0-33.4); MEAN CORPUSCULAR HGB CONC 33.5 g/dL (32.0-36.0); MEAN CORPUSCULAR VOLUME 91 fl (80-97); MONOCYTES % (AUTO) 5.6 % (3-13); PLATELET COUNT 250 10^3/uL (150-450); RED BLOOD COUNT 4.85 10^6/uL (3.72-5.28); RED CELL DISTRIBUTION WIDTH 13.5 % (11.5-14.0); SEGMENTED NEUTROPHILS % (AUTO) 85.4 % (42-78); TOTAL CELLS COUNTED % (AUTO) 100 %; WHITE BLOOD COUNT 18.3 10^3/uL (4.0-10.5)
[2018-09-27 15:03] LABS: ARTERIAL BLOOD BASE EXCESS 3.1 mmol/L; ARTERIAL BLOOD FIO2 4L; ARTERIAL BLOOD H2CO3 1.28 mmol/L (1.05-1.35); ARTERIAL BLOOD HCO3 27.8 mmol/L (20-24); ARTERIAL BLOOD O2 SATURATION 96.6 % (94-98); ARTERIAL BLOOD PCO2 42.4 mmHg (35-45); ARTERIAL BLOOD PH 7.43 (7.35-7.45); ARTERIAL BLOOD PO2 84.6 mmHg (80-100); ARTERIAL BLOOD TOTAL CO2 29.1 mmol/L (21-25)
[2018-09-27 15:07] LABS: ALANINE AMINOTRANSFERASE 20 U/L (9-52); ALBUMIN 4.4 g/dL (3.5-5.0); ALKALINE PHOSPHATASE 110 U/L (38-126); ANION GAP 12 (5-19); ASPARTATE AMINO TRANSFERASE 36 U/L (14-36); BILIRUBIN,DIRECT 0.3 mg/dL (0.0-0.4); BILIRUBIN,TOTAL 0.8 mg/dL (0.2-1.3); BLOOD UREA NITROGEN 10 mg/dL (7-20); CALCIUM 9.7 mg/dL (8.4-10.2); CARBON DIOXIDE 31 mmol/L (22-30); CHLORIDE 97 mmol/L (98-107); CREATINE KINASE 34 U/L (30-135); GLUCOSE 104 mg/dL (75-110); POTASSIUM 4.7 mmol/L (3.6-5.0); SODIUM 139.5 mmol/L (137-145); TOTAL PROTEIN 7.8 g/dL (6.3-8.2)
--- NOTE | 2018-09-27 15:19 | EKG REPORT ---
SEVERITY:- ABNORMAL ECG - SINUS TACHYCARDIA LEFT ATRIAL ABNORMALITY LVH : Confirmed by: Irma Shelton 27-Sep-2018 15:19:16
--- NOTE | 2018-09-27 15:21 | RADIOLOGY REPORT (SQ) ---
EXAM DESCRIPTION: CHEST SINGLE VIEW COMPLETED DATE/TIME: 09/27/2018 3:06 pm REASON FOR STUDY: sob COMPARISON: 07/26/2018 EXAM PARAMETERS: NUMBER OF VIEWS: One view. TECHNIQUE: Single frontal radiographic view of the chest acquired. RADIATION DOSE: NA LIMITATIONS: None. FINDINGS: LUNGS AND PLEURA: Redemonstrated bandlike scar atelectasis of the right mid lung. MEDIASTINUM AND HILAR STRUCTURES: No masses. Contour normal. HEART AND VASCULAR STRUCTURES: Heart normal in size. Normal vasculature. BONES: No acute findings. HARDWARE: None in the chest. OTHER: No other significant finding. IMPRESSION: No acute abnormality of the lungs in AP projection. No new airspace opacity. TECHNICAL DOCUMENTATION: JOB ID: [id number] [employer]- All Rights Reserved Reading location - IP/workstation name: [email or web address]
[2018-09-27] MEDS ORDERED: KETOROLAC TROMETHAMINE INJ/PF 30 MG/1 ML SDV IV ONE (15:41)
[2018-09-27 16:26] LABS: APPEARANCE,URINE CLEAR; BILIRUBIN,URINE NEGATIVE (NEGATIVE); COLOR,URINE YELLOW; GLUCOSE, URINE NEGATIVE (NEGATIVE); KETONES,URINE NEGATIVE (NEGATIVE); LEUKOCYTE ESTERASE,URINE NEGATIVE (NEGATIVE); NITRITE,URINE NEGATIVE (NEGATIVE); PROTEIN,URINE NEGATIVE (NEGATIVE); URINE SPECIFIC GRAVITY 1.024; UROBILINOGEN,URINE NEGATIVE mg/dL (<2.0)
[2018-09-27 16:42] LABS: A TYPE INFLUENZA AG NEGATIVE (NEGATIVE); B INFLUENZA AG NEGATIVE (NEGATIVE)
--- NOTE | 2018-09-27 16:45 | RADIOLOGY REPORT (SQ) ---
EXAM DESCRIPTION: CTA CHEST COMPLETED DATE/TIME: 09/27/2018 3:57 pm REASON FOR STUDY: chest pain COMPARISON: None. TECHNIQUE: CT scan of the chest performed using helical scanning technique with dynamic intravenous contrast injection. Images reviewed with lung, soft tissue and bone windows. Reconstructed coronal and sagittal MPR images reviewed. Additional 3 dimensional post-processing performed to develop Maximal Intensity Projection images (IN P). All images stored on PACS. All CT scanners at this facility use dose modulation, iterative reconstruction, and/or weight based d osing when appropriate to reduce radiation dose to as low as reasonably achievable (ALARA). [facility]: Dose Right [facility]: CareDose [facility]: Dose Right [facility]: Teradose 4D [facility]: ozuke CONTRAST TYPE AND DOSE: contrast/concentration: Isovue 350.00 mg/ml; Total Contrast Delivered: 65.0 ml; Total Saline Delivered: 90.0 ml Contrast bolus adequate for pulmonary arteries and aorta. RENAL FUNCTION: BUN 16 creatinine 0.76 RADIATION DOSE: CT Rad equipment meets quality standard of care and radiation dose reduction techniq ues were employed. CTDIvol: 14.5 - 39.7 mGy. DLP: 554 mGy-cm. . LIMITATIONS: None. FINDINGS: LUNGS AND PLEURA: Centrilobular emphysematous changes are present. Chronic interstitial f ibrosis is suggested. There is an area of scarring in the right upper lobe anteriorly. AORTA AND GREAT VESSELS: No aneurysm. No dissection. HEART: No pericardial effusion. No significant coronary artery calcifications. PULMONARY ARTERIES: No emboli visualized in the main pulmonary arteries or the segmental branches. HILAR AND MEDIASTINAL STRUCTURES: No identified masses or abnormal nodes. HARDWARE: None in the chest. UPPER ABDOMEN: No significant findings. Limited exam. THYROID AND OTHER SOFT TISSUES: No masses. No adenopathy. BONES: No acute or significant finding. 3D MIPS: Confirm above findings. OTHER: No other significant finding. IMPRESSION: 1. There is no evidence of pulmonary embolus. 2. Pulmonary emphysema. Chronic interstitial fibrosis. COMMENT: Quality ID # [id number]: Final reports with documentation of one or more dose reduction techniques (e.g., Automated exposure control, adjustment of the mA and/or kV according to patient size, use of iterative reconstruction technique) TECHNICAL DOCUMENTATION: JOB ID: [id number] [employer]- All Rights Reserved Reading location - IP/workstation name: [email or web address]
[2018-09-27] MEDS ORDERED: IPRATROPIUM BROMIDE 0.02% NEB 0.5 MG/2.5 ML AMPUL NEB PRN (17:45)
[2018-09-27] MEDS: GUAIFENESIN 600 MG TABLET.SA PO SCH (19:29)
[2018-09-27] MEDS: PREDNISONE 20 MG TABLET PO SCH (19:29)
[2018-09-27] MEDS: LEVALBUTEROL HCL NEB 0.63 MG/3 ML AMPUL NEB SCH (20:23)
[2018-09-27] MEDS: DEXTROSE 5%-NORMAL SALINE 1,000 ML IV PRN (20:33)
--- NOTE | 2018-09-27 20:54 | PDOC H&P ---
History of Present Illness Admission Date/PCP: 09/27/18 16:42 [facility] Patient complains of: Shortness of breath History of Present Illness: SANDOR AGGARWAL is a 58 year old female past medical history of COPD, hyperthyroidism, alcohol abuse and hysterectomy currently on hormone replacement therapy presented to ED complaining of worsening shortness of breath , nonproductive cough for the last 3-4 days associated with pleuritic chest pain , fever and chills. He denies any sick contact, recent travel. a which has required admission to the hospital and states this feels similar. She is reporting a right-sided chest pain that is worse with inspiration and coughing. In ED patient was found to be tachypneic, febrile with leukocytosis hospice was consulted for admission. Denies any nausea, vomiting, diarrhea, constipation or any urinary symptoms. Past Medical History Pulmonary Medical History: Reports: Bronchitis, Chronic Obstructive Pulmonary Disease (COPD) Endocrine Medical History: Reports: Hypothyroidism Musculoskeltal Medical History: Reports: Arthritis Psychiatric Medical History: Reports: Depression Past Surgical History Past Surgical History: Reports: Section, Cholecystectomy, Hysterectomy Social History Smoking Status: Current Some Day Smoker Frequency of Alcohol Use: Occasional Hx Recreational Drug Use: No Hx Prescription Drug Abuse: No Family History Family History: Hypertension Parental Family History Reviewed: Yes Children Family History Reviewed: Yes Sibling(s) Family History Reviewed.: Yes Medication/Allergy Home Medications: Citalopram Hydrobromide [Celexa 20 mg Tablet] 20 mg PO DAILY 09/10/17 Cyanocobalamin (Vitamin B-12) [Vitamin B-12] 1,000 mcg PO DAILY 09/10/17 Estradiol [Estrace] 1 mg PO QAM 09/10/17 Levothyroxine Sodium [Synthroid 0.075 mg Tablet] 0.075 mg PO QAM 09/10/17 Vit 40/Iron/Folic/Dha [ Multi-Dha Softgel] 1 each PO DAILY Allergies/Adverse Reactions: No Known Allergies Allergy (Verified 09/27/18 13:57) Review of Systems Review of Systems: As per HPI Physical Exam Vital Signs: Temp Pulse Resp BP Pulse Ox 99.1 F 74 20 102/48 L 96 09/27/18 13:41 09/27/18 20:26 09/27/18 20:26 09/27/18 20:01 09/27/18 20:26 Intake & Output 09/26/18 09/27/18 09/28/18 06:59 06:59 06:59 Intake Total 1000 Balance 1000 General appearance: PRESENT: mild distress Head exam: PRESENT: atraumatic, normocephalic Neck exam: ABSENT: carotid bruit, JVD, lymphadenopathy, thyromegaly Respiratory exam: PRESENT: decreased breath sounds, prolonged expiratory phas. ABSENT: rales, rhonchi, wheezes Cardiovascular exam: PRESENT: RRR, tachycardia. ABSENT: diastolic murmur, rubs , systolic murmur GI/Abdominal exam: PRESENT: normal bowel sounds, soft. ABSENT: distended, guarding, mass, organolmegaly, rebound, tenderness Neurological exam: PRESENT: alert, awake, oriented to person, oriented to place , oriented to time, oriented to situation, CN II-XII grossly intact. ABSENT: motor sensory deficit Results Impressions: Chest X-Ray 09/27/18 14:07 IMPRESSION: No acute abnormality of the lungs in AP projection. No new airspace opacity. Chest/Abdomen CTA 09/27/18 14:29 IMPRESSION: 1. There is no evidence of pulmonary embolus. 2. Pulmonary emphysema. Chronic interstitial fibrosis. Assessment & Plan - Diagnosis (1) COPD exacerbation Is this a current diagnosis for this admission?: Yes Plan: Likely due to acute bronchitis continued tobacco abuse. Start on DuoNeb, BiPAP, steroids, long-acting anticholinergics and empiric antibiotics. (2) Acute hypoxemic respiratory failure Is this a current diagnosis for this admission?: Yes Plan: Due to problem #1. (3) Bronchitis Is this a current diagnosis for this admission?: Yes Plan: Empiric antibiotics. Follow sputum and blood culture. (4) SIRS (systemic inflammatory response syndrome) Is this a current diagnosis for this admission?: Yes Plan: Due to underlying infectious process. Volume resuscitation. Broad-spectrum antibiotic. Follow sputum blood culture. Admit to telemetry and monitor vitals. (5) Hypothyroidism Qualifiers: Is this a current diagnosis for this admission?: Yes Plan: Restart home meds. (6) Tobacco abuse Is this a current diagnosis for this admission?: Yes Plan: Extensively counseled on quitting. Nicotine patch. (7) Depression Is this a current diagnosis for this admission?: Yes Plan: Denies any suicidal, homicidal or self-harm ideation. Start home meds.
[2018-09-27] MEDS: HEPARIN SOD (PORCINE) 5,000 UNIT/ML 1 ML SYRINGE SUBCUT SCH (22:04)
[2018-09-28] MEDS: LEVALBUTEROL HCL NEB 0.63 MG/3 ML AMPUL NEB SCH ×4 (01:39→20:20)
[2018-09-28 05:14] LABS: MEAN CORPUSCULAR HEMOGLOBIN 30.6 pg (27.0-33.4); MEAN CORPUSCULAR HGB CONC 33.6 g/dL (32.0-36.0); MEAN CORPUSCULAR VOLUME 91 fl (80-97); PLATELET COUNT 213 10^3/uL (150-450); RED BLOOD COUNT 4.07 10^6/uL (3.72-5.28); RED CELL DISTRIBUTION WIDTH 13.3 % (11.5-14.0); WHITE BLOOD COUNT 15.1 10^3/uL (4.0-10.5)
[2018-09-28 05:23] LABS: ALANINE AMINOTRANSFERASE 19 U/L (9-52); ALBUMIN 3.4 g/dL (3.5-5.0); ALKALINE PHOSPHATASE 91 U/L (38-126); ANION GAP 10 (5-19); ASPARTATE AMINO TRANSFERASE 17 U/L (14-36); BILIRUBIN,DIRECT 0.2 mg/dL (0.0-0.4); BILIRUBIN,TOTAL 0.3 mg/dL (0.2-1.3); BLOOD UREA NITROGEN 13 mg/dL (7-20); CALCIUM 9.1 mg/dL (8.4-10.2); CARBON DIOXIDE 26 mmol/L (22-30); CHLORIDE 104 mmol/L (98-107); GLUCOSE 281 mg/dL (75-110); POTASSIUM 4.2 mmol/L (3.6-5.0); SODIUM 139.9 mmol/L (137-145); TOTAL PROTEIN 6.3 g/dL (6.3-8.2)
[2018-09-28 05:33] LABS: HEMOGLOBIN 12.4 g/dL (12.0-15.5)
[2018-09-28 05:37] LABS: ABSOLUTE LYMPHOCYTES# (MANUAL) 0.6 10^3/uL (0.5-4.7); ABSOLUTE MONOCYTES # (MANUAL) 0.2 10^3/uL (0.1-1.4); ABSOLUTE NEUTROPHILS# (MANUAL) 14.3 10^3/uL (1.7-8.2); BAND NEUTROPHILS % (MANUAL) 1 % (3-5); BASOPHILS % (MANUAL) 0 % (0-2); EOSINOPHILS % (MANUAL) 0 % (0-6); LYMPHOCYTES % (MANUAL) 4 % (13-45); MONOCYTES % (MANUAL) 1 % (3-13); POLYCHROMASIA SLIGHT; SEGMENTED NEUTROPHILS % (MAN) 94 % (42-78); TOTAL CELLS COUNTED 100; TOXIC GRANULATION SLIGHT
[2018-09-28 05:38] LABS: PLATELET COMMENT ADEQUATE; PLATELET GIANT PRESENT
[2018-09-28] MEDS: HEPARIN SOD (PORCINE) 5,000 UNIT/ML 1 ML SYRINGE SUBCUT SCH ×3 (06:01→21:53)
[2018-09-28] MEDS: GUAIFENESIN 600 MG TABLET.SA PO SCH ×2 (06:03→17:18)
[2018-09-28] MEDS: LANSOPRAZOLE 30 MG TAB.RAP.DR PO SCH ×2 (06:03→17:18)
[2018-09-28] MEDS: LEVOTHYROXINE SODIUM 0.075 MG TABLET PO SCH (08:48)
[2018-09-28] MEDS: CYANOCOBALAMIN (VITAMIN B-12) 1,000 MCG TABLET PO SCH (09:31)
[2018-09-28] MEDS: CEFTRIAXONE SODIUM 1,000 MG in DEXTROSE 5%-WATER 50 ML IV SCH (09:32)
[2018-09-28] MEDS: ASPIRIN 81 MG TABLET, ENT COATED PO SCH (09:32)
[2018-09-28] MEDS: PREDNISONE 20 MG TABLET PO SCH (09:32)
[2018-09-28] MEDS: TIOTROPIUM BROMIDE DPI 5 CAP/KIT (18 MCG/CAP) IH SCH (09:33)
[2018-09-28] MEDS ORDERED: CITALOPRAM HYDROBROMIDE 20 MG TABLET PO SCH (10:00)
[2018-09-28] MEDS ORDERED: CEFTRIAXONE 1 GM/D5W RTU 50 ML IV SCH (10:00)
[2018-09-28] MEDS: DEXTROSE 5%-NORMAL SALINE 1,000 ML IV PRN (11:58)
[2018-09-28] MEDS: AZITHROMYCIN 500 MG in DEXTROSE 5%-WATER 250 ML IV SCH (12:15)
[2018-09-28] MEDS: ACETAMINOPHEN 325 MG TABLET PO PRN (17:28)
--- NOTE | 2018-09-28 18:50 | PDOC PROGRESS REPORT ---
Subjective Progress Note for:: 09/28/18 Subjective:: SANDOR AGGARWAL is a 58 year old female past medical history of COPD, hyperthyroidism, alcohol abuse and hysterectomy currently on hormone replacement therapy presented to ED complaining of worsening shortness of breath , nonproductive cough for the last 3-4 days associated with pleuritic chest pain , fever and chills. He denies any sick contact, recent travel. a which has required admission to the hospital and states this feels similar. She is reporting a right-sided chest pain that is worse with inspiration and coughing. In ED patient was found to be tachypneic, febrile with leukocytosis hospice was consulted for admission. Denies any nausea, vomiting, diarrhea, constipation or any urinary symptoms. 09/28/2018. No acute events overnight. Breathing has improved. On supplemental oxygen on my encounter. Patient stated that she is feeling much better. Denies any fever, chills, nausea, vomiting or constipation. Reason For Visit: PNEUMONIA Physical Exam Vital Signs: Temp Pulse Resp BP Pulse Ox 98.1 F 78 16 116/52 L 96 09/28/18 17:12 09/28/18 17:12 09/28/18 17:12 09/28/18 17:12 09/28/18 17:12 Pulse Oximeter Continuous Start: 09/28/18 01: 32 Freq: RTQ4 Status: Active Document 09/28/18 12:29 [facility] (Rec: 09/28/18 13:30 [facility] [id number]) Pulse Oximetry Assessment Oxygen Saturation (92-100) 97 Oxygen Flow Rate (L/min) 3 Oxygen Delivery Method Nasal Cannula Equipment Usage Equipment in Use Continuous SpO2 Machine # 4 Intake & Output 09/27/18 09/28/18 09/29/18 06:59 06:59 06:59 Intake Total 1444 2371 Balance 1444 2371 Weight 71.4 kg General appearance: PRESENT: no acute distress, well-developed, well-nourished Respiratory exam: PRESENT: clear to auscultation danyell. ABSENT: rales, rhonchi, wheezes Cardiovascular exam: PRESENT: RRR. ABSENT: diastolic murmur, rubs, systolic murmur Results Laboratory Results: 09/28/18 04:29 09/28/18 04:29 09/28/18 09/28/18 04:29 04:29 WBC 15.1 H RBC 4.07 Hgb 12.4 D Hct 37.0 MCV 91 MCH 30.6 MCHC 33.6 RDW 13.3 Plt Count 213 Seg Neutrophils % Not Reportable Lymphocytes % Not Reportable Monocytes % Not Reportable Eosinophils % Not Reportable Basophils % Not Reportable Absolute Neutrophils Not Reportable Absolute Lymphocytes Not Reportable Absolute Monocytes Not Reportable Absolute Eosinophils Not Reportable Absolute Basophils Not Reportable Sodium 139.9 Potassium 4.2 Chloride 104 Carbon Dioxide 26 Anion Gap 10 BUN 13 Creatinine 0.79 Est GFR ( Amer) > 60 Est GFR (Non-Af Amer) > 60 Glucose 281 H Calcium 9.1 Magnesium 2.0 Total Bilirubin 0.3 AST 17 ALT 19 Alkaline Phosphatase 91 Total Protein 6.3 Albumin 3.4 L Impressions: Chest X-Ray 09/27/18 14:07 IMPRESSION: No acute abnormality of the lungs in AP projection. No new airspace opacity. Chest/Abdomen CTA 09/27/18 14:29 IMPRESSION: 1. There is no evidence of pulmonary embolus. 2. Pulmonary emphysema. Chronic interstitial fibrosis. Assessment & Plan - Diagnosis (1) COPD exacerbation Is this a current diagnosis for this admission?: Yes Plan: Improving. Likely due to acute bronchitis continued tobacco abuse. Start on DuoNeb, BiPAP, steroids, long-acting anticholinergics and empiric antibiotics. (2) Acute hypoxemic respiratory failure Is this a current diagnosis for this admission?: Yes Plan: Due to problem #1. (3) Bronchitis Is this a current diagnosis for this admission?: Yes Plan: Improving. Status is improving. Continue empiric antibiotics. Follow sputum and blood culture. (4) SIRS (systemic inflammatory response syndrome) Is this a current diagnosis for this admission?: Yes Plan: Due to underlying infectious process. Volume resuscitation. Broad-spectrum antibiotic. Follow sputum blood culture. Admit to telemetry and monitor vitals. (5) Hypothyroidism Qualifiers: Is this a current diagnosis for this admission?: Yes Plan: Restart home meds. (6) Tobacco abuse Is this a current diagnosis for this admission?: Yes Plan: Extensively counseled on quitting. Nicotine patch. (7) Depression Is this a current diagnosis for this admission?: Yes Plan: Denies any suicidal, homicidal or self-harm ideation. Start home meds.
[2018-09-29] MEDS: LEVALBUTEROL HCL NEB 0.63 MG/3 ML AMPUL NEB SCH ×4 (02:19→20:39)
[2018-09-29] MEDS: DEXTROSE 5%-NORMAL SALINE 1,000 ML IV PRN ×2 (03:13→15:46)
[2018-09-29 04:51] LABS: HEMATOCRIT 35.9 % (36.0-47.0); HEMOGLOBIN 11.6 g/dL (12.0-15.5); MEAN CORPUSCULAR HEMOGLOBIN 29.7 pg (27.0-33.4); MEAN CORPUSCULAR HGB CONC 32.4 g/dL (32.0-36.0); MEAN CORPUSCULAR VOLUME 92 fl (80-97); PLATELET COUNT 242 10^3/uL (150-450); RED BLOOD COUNT 3.92 10^6/uL (3.72-5.28); RED CELL DISTRIBUTION WIDTH 13.6 % (11.5-14.0); WHITE BLOOD COUNT 22.4 10^3/uL (4.0-10.5)
[2018-09-29 05:11] LABS: ALANINE AMINOTRANSFERASE 26 U/L (9-52); ALBUMIN 3.5 g/dL (3.5-5.0); ALKALINE PHOSPHATASE 85 U/L (38-126); ANION GAP 13 (5-19); ASPARTATE AMINO TRANSFERASE 30 U/L (14-36); BILIRUBIN,DIRECT 0.1 mg/dL (0.0-0.4); BILIRUBIN,TOTAL 0.1 mg/dL (0.2-1.3); BLOOD UREA NITROGEN 10 mg/dL (7-20); CALCIUM 9.2 mg/dL (8.4-10.2); CARBON DIOXIDE 23 mmol/L (22-30); CHLORIDE 107 mmol/L (98-107); GLUCOSE 127 mg/dL (75-110); POTASSIUM 4.6 mmol/L (3.6-5.0); SODIUM 142.8 mmol/L (137-145); TOTAL PROTEIN 6.3 g/dL (6.3-8.2)
[2018-09-29 05:20] LABS: ABSOLUTE LYMPHOCYTES# (MANUAL) 2.9 10^3/uL (0.5-4.7); ABSOLUTE MONOCYTES # (MANUAL) 0.9 10^3/uL (0.1-1.4); ABSOLUTE NEUTROPHILS# (MANUAL) 18.6 10^3/uL (1.7-8.2); BAND NEUTROPHILS % (MANUAL) 1 % (3-5); BASOPHILS % (MANUAL) 0 % (0-2); EOSINOPHILS % (MANUAL) 0 % (0-6); LYMPHOCYTES % (MANUAL) 13 % (13-45); MONOCYTES % (MANUAL) 4 % (3-13); PLATELET COMMENT ADEQUATE; RBC MORPHOLOGY COMMENT NORMO-CYTIC/CHROMIC; SEGMENTED NEUTROPHILS % (MAN) 82 % (42-78); TOTAL CELLS COUNTED 100; TOXIC GRANULATION SLIGHT
[2018-09-29] MEDS: HEPARIN SOD (PORCINE) 5,000 UNIT/ML 1 ML SYRINGE SUBCUT SCH ×3 (05:22→23:39)
[2018-09-29] MEDS: LANSOPRAZOLE 30 MG TAB.RAP.DR PO SCH ×2 (05:25→17:19)
[2018-09-29] MEDS: GUAIFENESIN 600 MG TABLET.SA PO SCH ×2 (05:25→17:19)
[2018-09-29] MEDS: ACETAMINOPHEN 325 MG TABLET PO PRN (08:29)
[2018-09-29] MEDS: LEVOTHYROXINE SODIUM 0.075 MG TABLET PO SCH (08:29)
[2018-09-29] MEDS: PREDNISONE 20 MG TABLET PO SCH (10:47)
[2018-09-29] MEDS: CYANOCOBALAMIN (VITAMIN B-12) 1,000 MCG TABLET PO SCH (10:48)
[2018-09-29] MEDS: ASPIRIN 81 MG TABLET, ENT COATED PO SCH (10:48)
[2018-09-29] MEDS: TIOTROPIUM BROMIDE DPI 5 CAP/KIT (18 MCG/CAP) IH SCH (10:49)
[2018-09-29] MEDS: CEFTRIAXONE SODIUM 1,000 MG in DEXTROSE 5%-WATER 50 ML IV SCH (10:51)
[2018-09-29] MEDS: AZITHROMYCIN 500 MG in DEXTROSE 5%-WATER 250 ML IV SCH (12:20)
[2018-09-29] MEDS ORDERED: KETOROLAC TROMETHAMINE INJ/PF 30 MG/1 ML SDV IV ONE (12:30)
--- NOTE | 2018-09-29 13:29 | PDOC PROGRESS REPORT ---
Subjective Progress Note for:: 09/29/18 Subjective:: SANDOR AGGARWAL is a 58 year old female past medical history of COPD, hyperthyroidism, alcohol abuse and hysterectomy currently on hormone replacement therapy presented to ED complaining of worsening shortness of breath , nonproductive cough for the last 3-4 days associated with pleuritic chest pain , fever and chills. He denies any sick contact, recent travel. a which has required admission to the hospital and states this feels similar. She is reporting a right-sided chest pain that is worse with inspiration and coughing. In ED patient was found to be tachypneic, febrile with leukocytosis hospice was consulted for admission. Denies any nausea, vomiting, diarrhea, constipation or any urinary symptoms. 09/28/2018. No acute events overnight. Breathing has improved. On supplemental oxygen on my encounter. Patient stated that she is feeling much better. Denies any fever, chills, nausea, vomiting or constipation. 09/29/2018. No acute events overnight. Breathing has improved and patient denies any cough. Patient is p.o. tolerant, ambulatory and having normal bowel and bladder movements. Denies any fever, chills, nausea, vomiting, diarrhea, constipation or any urinary symptoms. Reason For Visit: PNEUMONIA Physical Exam Vital Signs: Temp Pulse Resp BP Pulse Ox 97.6 F 55 L 16 117/63 95 09/29/18 11:53 09/29/18 11:53 09/29/18 11:53 09/29/18 11:53 09/29/18 12:00 Pulse Oximeter Continuous Start: 09/28/18 01: 32 Freq: RTQ4 Status: Active Document 09/29/18 12:00 [facility] (Rec: 09/29/18 12:41 [facility] [id number]) Pulse Oximetry Assessment Oxygen Saturation (92-100) 95 Oxygen Flow Rate (L/min) 2 Oxygen Delivery Method Nasal Cannula Equipment Usage Equipment in Use Continuous SpO2 Machine # 4 Intake & Output 09/28/18 09/29/18 09/30/18 06:59 06:59 06:59 Intake Total 5511 2273 50 Balance 1447 6434 50 Weight 71.4 kg 71 kg General appearance: PRESENT: no acute distress, well-developed, well-nourished Respiratory exam: PRESENT: clear to auscultation danyell. ABSENT: rales, rhonchi, wheezes Cardiovascular exam: PRESENT: RRR. ABSENT: diastolic murmur, rubs, systolic murmur GI/Abdominal exam: PRESENT: normal bowel sounds, soft. ABSENT: distended, guarding, mass, organolmegaly, rebound, tenderness Results Laboratory Results: 09/29/18 03:49 09/29/18 03:49 09/29/18 09/29/18 03:49 03:49 WBC 22.4 H RBC 3.92 Hgb 11.6 L Hct 35.9 L MCV 92 MCH 29.7 MCHC 32.4 RDW 13.6 Plt Count 242 Seg Neutrophils % Not Reportable Lymphocytes % Not Reportable Monocytes % Not Reportable Eosinophils % Not Reportable Basophils % Not Reportable Absolute Neutrophils Not Reportable Absolute Lymphocytes Not Reportable Absolute Monocytes Not Reportable Absolute Eosinophils Not Reportable Absolute Basophils Not Reportable Sodium 142.8 Potassium 4.6 Chloride 107 Carbon Dioxide 23 Anion Gap 13 BUN 10 Creatinine 0.63 Est GFR ( Amer) > 60 Est GFR (Non-Af Amer) > 60 Glucose 127 H Calcium 9.2 Total Bilirubin 0.1 L AST 30 ALT 26 Alkaline Phosphatase 85 Total Protein 6.3 Albumin 3.5 Impressions: Chest X-Ray 09/27/18 14:07 IMPRESSION: No acute abnormality of the lungs in AP projection. No new airspace opacity. Chest/Abdomen CTA 09/27/18 14:29 IMPRESSION: 1. There is no evidence of pulmonary embolus. 2. Pulmonary emphysema. Chronic interstitial fibrosis. Assessment & Plan - Diagnosis (1) COPD exacerbation Is this a current diagnosis for this admission?: Yes Plan: Improving. Likely due to acute bronchitis continued tobacco abuse. Start on DuoNeb, BiPAP, steroids, long-acting anticholinergics and empiric antibiotics. (2) Acute hypoxemic respiratory failure Is this a current diagnosis for this admission?: Yes Plan: Due to problem #1. (3) Bronchitis Is this a current diagnosis for this admission?: Yes Plan: Improving. She still having significant leukocytosis could likely be due to steroids. DC Rocephen continue azithromycin. Cultures negative so far. If symptomatic improvement and leukocytosis improving will DC home tomorrow. (4) SIRS (systemic inflammatory response syndrome) Is this a current diagnosis for this admission?: Yes Plan: Due to underlying infectious process. Volume resuscitation. Broad-spectrum antibiotic. Follow sputum blood culture. Admit to telemetry and monitor vitals. (5) Hypothyroidism Qualifiers: Is this a current diagnosis for this admission?: Yes Plan: Restart home meds. (6) Tobacco abuse Is this a current diagnosis for this admission?: Yes Plan: Extensively counseled on quitting. Nicotine patch. (7) Depression Is this a current diagnosis for this admission?: Yes Plan: Denies any suicidal, homicidal or self-harm ideation. Start home meds.
[2018-09-30] MEDS: LEVALBUTEROL HCL NEB 0.63 MG/3 ML AMPUL NEB SCH ×4 (02:16→20:42)
[2018-09-30] MEDS: HEPARIN SOD (PORCINE) 5,000 UNIT/ML 1 ML SYRINGE SUBCUT SCH ×3 (05:32→21:05)
[2018-09-30] MEDS: LANSOPRAZOLE 30 MG TAB.RAP.DR PO SCH ×2 (05:36→17:47)
[2018-09-30] MEDS: GUAIFENESIN 600 MG TABLET.SA PO SCH ×2 (05:36→17:47)
[2018-09-30] MEDS: DEXTROSE 5%-NORMAL SALINE 1,000 ML IV PRN ×2 (05:37→18:30)
[2018-09-30 06:34] LABS: HEMATOCRIT 37.7 % (36.0-47.0); HEMOGLOBIN 12.4 g/dL (12.0-15.5); MEAN CORPUSCULAR HEMOGLOBIN 29.8 pg (27.0-33.4); MEAN CORPUSCULAR HGB CONC 32.9 g/dL (32.0-36.0); MEAN CORPUSCULAR VOLUME 90 fl (80-97); PLATELET COUNT 272 10^3/uL (150-450); RED BLOOD COUNT 4.17 10^6/uL (3.72-5.28); RED CELL DISTRIBUTION WIDTH 13.6 % (11.5-14.0); WHITE BLOOD COUNT 14.8 10^3/uL (4.0-10.5)
[2018-09-30 06:55] LABS: ABSOLUTE LYMPHOCYTES# (MANUAL) 2.2 10^3/uL (0.5-4.7); ABSOLUTE MONOCYTES # (MANUAL) 0.6 10^3/uL (0.1-1.4); ABSOLUTE NEUTROPHILS# (MANUAL) 11.7 10^3/uL (1.7-8.2); BAND NEUTROPHILS % (MANUAL) 2 % (3-5); BASOPHILS % (MANUAL) 1 % (0-2); EOSINOPHILS % (MANUAL) 1 % (0-6); LYMPHOCYTES % (MANUAL) 12 % (13-45); MONOCYTES % (MANUAL) 4 % (3-13); SEGMENTED NEUTROPHILS % (MAN) 76 % (42-78); TOTAL CELLS COUNTED 100
[2018-09-30 06:56] LABS: PLATELET CLUMPS PRESENT; PLATELET COMMENT ADEQUATE; RBC MORPHOLOGY COMMENT NORMO-CYTIC/CHROMIC; TOXIC GRANULATION SLIGHT
[2018-09-30 06:57] LABS: ALANINE AMINOTRANSFERASE 59 U/L (9-52); ALBUMIN 3.5 g/dL (3.5-5.0); ALKALINE PHOSPHATASE 78 U/L (38-126); ANION GAP 8 (5-19); ASPARTATE AMINO TRANSFERASE 37 U/L (14-36); BILIRUBIN,DIRECT 0.2 mg/dL (0.0-0.4); BILIRUBIN,TOTAL 0.2 mg/dL (0.2-1.3); BLOOD UREA NITROGEN 12 mg/dL (7-20); CALCIUM 9.6 mg/dL (8.4-10.2); CARBON DIOXIDE 30 mmol/L (22-30); CHLORIDE 105 mmol/L (98-107); GLUCOSE 99 mg/dL (75-110); POTASSIUM 4.4 mmol/L (3.6-5.0); SODIUM 143.2 mmol/L (137-145); TOTAL PROTEIN 6.3 g/dL (6.3-8.2)
[2018-09-30 06:58] LABS: MYELOCYTES % (MANUAL) 1 % (0)
[2018-09-30] MEDS: LEVOTHYROXINE SODIUM 0.075 MG TABLET PO SCH (08:12)
[2018-09-30] MEDS: ACETAMINOPHEN 325 MG TABLET PO PRN (08:15)
[2018-09-30] MEDS ORDERED: BISACODYL 5 MG TABEC PO PRN (09:34)
[2018-09-30] MEDS ORDERED: POLYETHYLENE GLYCOL 3350 POWDER 17 GM/1 PACKET PO PRN (09:34)
[2018-09-30] MEDS: ASPIRIN 81 MG TABLET, ENT COATED PO SCH (10:18)
[2018-09-30] MEDS: PREDNISONE 20 MG TABLET PO SCH (10:18)
[2018-09-30] MEDS: CYANOCOBALAMIN (VITAMIN B-12) 1,000 MCG TABLET PO SCH (10:18)
[2018-09-30] MEDS: AZITHROMYCIN 250 MG TABLET PO SCH (10:18)
[2018-09-30] MEDS: TIOTROPIUM BROMIDE DPI 5 CAP/KIT (18 MCG/CAP) IH SCH (10:18)
[2018-09-30 10:53] LABS: PATH REVIEW PATHOLOGIST REVIEWED
--- NOTE | 2018-09-30 18:38 | PDOC PROGRESS REPORT ---
Subjective Progress Note for:: 09/30/18 Subjective:: SANDOR AGGARWAL is a 58 year old female past medical history of COPD, hyperthyroidism, alcohol abuse and hysterectomy currently on hormone replacement therapy presented to ED complaining of worsening shortness of breath , nonproductive cough for the last 3-4 days associated with pleuritic chest pain , fever and chills. He denies any sick contact, recent travel. a which has required admission to the hospital and states this feels similar. She is reporting a right-sided chest pain that is worse with inspiration and coughing. In ED patient was found to be tachypneic, febrile with leukocytosis hospice was consulted for admission. Denies any nausea, vomiting, diarrhea, constipation or any urinary symptoms. 09/28/2018. No acute events overnight. Breathing has improved. On supplemental oxygen on my encounter. Patient stated that she is feeling much better. Denies any fever, chills, nausea, vomiting or constipation. 09/29/2018. No acute events overnight. Breathing has improved and patient denies any cough. Patient is p.o. tolerant, ambulatory and having normal bowel and bladder movements. Denies any fever, chills, nausea, vomiting, diarrhea, constipation or any urinary symptoms. 09/30/2018. No acute events overnight. Shortness of breath has improved however patient gets winded when exerting herself. Denies any fever, chills, nausea, vomiting, diarrhea, constipation. Plan was to discharge her today however her oxygen supply could not be arranged. Reason For Visit: PNEUMONIA Physical Exam Vital Signs: Temp Pulse Resp BP Pulse Ox 98.4 F 75 18 131/61 H 94 09/30/18 16:00 09/30/18 16:00 09/30/18 16:00 09/30/18 16:00 09/30/18 16:00 Pulse Oximeter Continuous Start: 09/28/18 01: 32 Freq: RTQ4 Status: Active Document 09/30/18 16:00 [facility] (Rec: 09/30/18 17:24 [facility] [id number]) Pulse Oximetry Assessment Oxygen Saturation (92-100) 94 Oxygen Delivery Method Room Air Equipment Usage Equipment in Use Continuous SpO2 Machine # 4 Intake & Output 09/29/18 09/30/18 10/01/18 06:59 06:59 06:59 Intake Total 3772 1000 Balance 3772 1000 Weight 70.6 kg General appearance: PRESENT: no acute distress, well-developed, well-nourished Respiratory exam: PRESENT: clear to auscultation danyell. ABSENT: rales, rhonchi, wheezes Cardiovascular exam: PRESENT: RRR. ABSENT: diastolic murmur, rubs, systolic murmur GI/Abdominal exam: PRESENT: normal bowel sounds, soft. ABSENT: distended, guarding, mass, organolmegaly, rebound, tenderness Neurological exam: PRESENT: alert, awake, oriented to person, oriented to place , oriented to time, oriented to situation, CN II-XII grossly intact. ABSENT: motor sensory deficit Results Laboratory Results: 09/30/18 05:37 09/30/18 05:37 09/30/18 09/30/18 05:37 05:37 WBC 14.8 H RBC 4.17 Hgb 12.4 Hct 37.7 MCV 90 MCH 29.8 MCHC 32.9 RDW 13.6 Plt Count 272 Seg Neutrophils % Not Reportable Lymphocytes % Not Reportable Monocytes % Not Reportable Eosinophils % Not Reportable Basophils % Not Reportable Absolute Neutrophils Not Reportable Absolute Lymphocytes Not Reportable Absolute Monocytes Not Reportable Absolute Eosinophils Not Reportable Absolute Basophils Not Reportable Sodium 143.2 Potassium 4.4 Chloride 105 Carbon Dioxide 30 Anion Gap 8 BUN 12 Creatinine 0.73 Est GFR ( Amer) > 60 Est GFR (Non-Af Amer) > 60 Glucose 99 Calcium 9.6 Total Bilirubin 0.2 AST 37 H ALT 59 H Alkaline Phosphatase 78 Total Protein 6.3 Albumin 3.5 Impressions: Chest X-Ray 09/27/18 14:07 IMPRESSION: No acute abnormality of the lungs in AP projection. No new airspace opacity. Chest/Abdomen CTA 09/27/18 14:29 IMPRESSION: 1. There is no evidence of pulmonary embolus. 2. Pulmonary emphysema. Chronic interstitial fibrosis. Assessment & Plan - Diagnosis (1) COPD exacerbation Is this a current diagnosis for this admission?: Yes Plan: Improving. Likely due to acute bronchitis continued tobacco abuse. Start on DuoNeb, BiPAP, steroids, long-acting anticholinergics and empiric antibiotics. (2) Acute hypoxemic respiratory failure Is this a current diagnosis for this admission?: Yes Plan: Due to problem #1. (3) Bronchitis Is this a current diagnosis for this admission?: Yes Plan: Improving. She still having significant leukocytosis could likely be due to steroids. DC Rocephen continue azithromycin. Cultures negative so far. (4) SIRS (systemic inflammatory response syndrome) Is this a current diagnosis for this admission?: Yes Plan: Due to underlying infectious process. Volume resuscitation. Broad-spectrum antibiotic. Follow sputum blood culture. Admit to telemetry and monitor vitals. (5) Hypothyroidism Qualifiers: Is this a current diagnosis for this admission?: Yes Plan: Restart home meds. (6) Tobacco abuse Is this a current diagnosis for this admission?: Yes Plan: Extensively counseled on quitting. Nicotine patch. (7) Depression Is this a current diagnosis for this admission?: Yes Plan: Denies any suicidal, homicidal or self-harm ideation. Start home meds.
[2018-10-01] MEDS: LEVALBUTEROL HCL NEB 0.63 MG/3 ML AMPUL NEB SCH ×3 (02:13→13:50)
[2018-10-01] MEDS: GUAIFENESIN 600 MG TABLET.SA PO SCH ×2 (05:24→17:27)
[2018-10-01] MEDS: LANSOPRAZOLE 30 MG TAB.RAP.DR PO SCH ×2 (05:24→17:27)
[2018-10-01] MEDS: HEPARIN SOD (PORCINE) 5,000 UNIT/ML 1 ML SYRINGE SUBCUT SCH ×2 (05:24→17:25)
[2018-10-01 07:42] LABS: HEMATOCRIT 36.3 % (36.0-47.0); MEAN CORPUSCULAR HEMOGLOBIN 29.8 pg (27.0-33.4); MEAN CORPUSCULAR VOLUME 90 fl (80-97); PLATELET COUNT 256 10^3/uL (150-450); RED BLOOD COUNT 4.03 10^6/uL (3.72-5.28); RED CELL DISTRIBUTION WIDTH 12.7 % (11.5-14.0); WHITE BLOOD COUNT 14.1 10^3/uL (4.0-10.5)
[2018-10-01 07:53] LABS: ALANINE AMINOTRANSFERASE 44 U/L (9-52); ALKALINE PHOSPHATASE 64 U/L (38-126); ANION GAP 7 (5-19); ASPARTATE AMINO TRANSFERASE 19 U/L (14-36); BILIRUBIN,DIRECT 0.2 mg/dL (0.0-0.4); BILIRUBIN,TOTAL 0.2 mg/dL (0.2-1.3); BLOOD UREA NITROGEN 10 mg/dL (7-20); CALCIUM 8.6 mg/dL (8.4-10.2); CARBON DIOXIDE 32 mmol/L (22-30); CHLORIDE 105 mmol/L (98-107); GLUCOSE 86 mg/dL (75-110); POTASSIUM 3.8 mmol/L (3.6-5.0); SODIUM 144.1 mmol/L (137-145); TOTAL PROTEIN 5.5 g/dL (6.3-8.2)
[2018-10-01] MEDS: LEVOTHYROXINE SODIUM 0.075 MG TABLET PO SCH (07:58)
[2018-10-01] MEDS: DEXTROSE 5%-NORMAL SALINE 1,000 ML IV PRN (08:00)
[2018-10-01 08:38] LABS: ABSOLUTE NEUTROPHILS# (MANUAL) 10.2 10^3/uL (1.7-8.2); BAND NEUTROPHILS % (MANUAL) 1 % (3-5); BASOPHILS % (MANUAL) 0 % (0-2); EOSINOPHILS % (MANUAL) 0 % (0-6); LYMPHOCYTES % (MANUAL) 21 % (13-45); METAMYELOCYTES % (MANUAL) 3 % (0); MONOCYTES % (MANUAL) 7 % (3-13); SEGMENTED NEUTROPHILS % (MAN) 65 % (42-78); TOTAL CELLS COUNTED 100
[2018-10-01 08:39] LABS: HYPOCHROMASIA SLIGHT; MYELOCYTES % (MANUAL) 3 % (0); PLATELET COMMENT ADEQUATE; POLYCHROMASIA SLIGHT; TOXIC GRANULATION 2+
[2018-10-01] MEDS: AZITHROMYCIN 250 MG TABLET PO SCH (09:10)
[2018-10-01] MEDS: PREDNISONE 20 MG TABLET PO SCH (09:10)
[2018-10-01] MEDS: TIOTROPIUM BROMIDE DPI 5 CAP/KIT (18 MCG/CAP) IH SCH (09:10)
[2018-10-01] MEDS: CYANOCOBALAMIN (VITAMIN B-12) 1,000 MCG TABLET PO SCH (09:10)
[2018-10-01] MEDS: ASPIRIN 81 MG TABLET, ENT COATED PO SCH (09:10)
[2018-10-01 11:39] LABS: PATH REVIEW PATHOLOGIST REVIEWED
[2018-10-01 18:55] VITALS: BP 119/63
--- NOTE | 2018-10-02 16:17 | PDOC DISCHARGE SUMMARY ---
General - Admit/Disc Date/PCP Admission Date/Primary Care Provider: 09/29/18 09:40 [facility] Discharge Date: 10/01/18 - Discharge Diagnosis (1) COPD exacerbation Is this a current diagnosis for this admission?: Yes (2) Acute hypoxemic respiratory failure Is this a current diagnosis for this admission?: Yes (3) Bronchitis Is this a current diagnosis for this admission?: Yes (4) SIRS (systemic inflammatory response syndrome) Is this a current diagnosis for this admission?: Yes (5) Hypothyroidism Is this a current diagnosis for this admission?: Yes (6) Tobacco abuse Is this a current diagnosis for this admission?: Yes (7) Depression Is this a current diagnosis for this admission?: Yes - Additional Information Resuscitation Status: Full Code Discharge Diet: As Tolerated Discharge Activity: Activity As Tolerated Prescriptions: Albuterol Sulfate [Proair HFA Inhalation Aerosol 8.5 gm MDI] 1 puff IH Q6 30 Days #1 mdi Azithromycin [Zithromax 250 mg Tablet] 250 mg PO DAILY 3 Days #3 tablet Lansoprazole [Prevacid 30 mg Odt Tablet] 30 mg PO BID@0600,1700 15 Days #30 tab.rap. Prednisone [Deltasone 20 mg Tablet] 40 mg PO DAILY 3 Days #3 tablet Tiotropium Gordon [Spiriva Handihaler 5 Cap/Kit (18 Mcg/Cap)] 1 cap IH DAILY 30 Days #3 kit Home Medications: Citalopram Hydrobromide [Celexa 20 mg Tablet] 20 mg PO DAILY 09/10/17 Cyanocobalamin (Vitamin B-12) [Vitamin B-12] 1,000 mcg PO DAILY 09/10/17 Estradiol [Estrace] 1 mg PO QAM 09/10/17 Levothyroxine Sodium [Synthroid 0.075 mg Tablet] 0.075 mg PO QAM 09/10/17 Vit 40/Iron/Folic/Dha [ Multi-Dha Softgel] 1 each PO DAILY Albuterol Sulfate [Proair HFA Inhalation Aerosol 8.5 gm MDI] 1 puff IH Q6 30 Days #1 mdi 10/01/18 Azithromycin [Zithromax 250 mg Tablet] 250 mg PO DAILY 3 Days #3 tablet Lansoprazole [Prevacid 30 mg Odt Tablet] 30 mg PO BID@0600,1700 15 Days #30 tab. 10/01/18 Prednisone [Deltasone 20 mg Tablet] 40 mg PO DAILY 3 Days #3 tablet 10/01/18 Tiotropium Gordon [Spiriva Handihaler 5 Cap/Kit (18 Mcg/Cap)] 1 cap IH DAILY 30 Days #3 kit 10/01/18 History of Present Illness History of Present Illness: SANDOR AGGARWAL is a 58 year old female past medical history of COPD, hyperthyroidism, alcohol abuse and hysterectomy currently on hormone replacement therapy presented to ED complaining of worsening shortness of breath , nonproductive cough for the last 3-4 days associated with pleuritic chest pain , fever and chills. He denies any sick contact, recent travel. a which has required admission to the hospital and states this feels similar. She is reporting a right-sided chest pain that is worse with inspiration and coughing. In ED patient was found to be tachypneic, febrile with leukocytosis hospice was consulted for admission. Denies any nausea, vomiting, diarrhea, constipation or any urinary symptoms. 09/28/2018. No acute events overnight. Breathing has improved. On supplemental oxygen on my encounter. Patient stated that she is feeling much better. Denies any fever, chills, nausea, vomiting or constipation. 09/29/2018. No acute events overnight. Breathing has improved and patient denies any cough. Patient is p.o. tolerant, ambulatory and having normal bowel and bladder movements. Denies any fever, chills, nausea, vomiting, diarrhea, constipation or any urinary symptoms. 09/30/2018. No acute events overnight. Shortness of breath has improved however patient gets winded when exerting herself. Denies any fever, chills, nausea, vomiting, diarrhea, constipation. Plan was to discharge her today however her oxygen supply could not be arranged. Hospital Course Hospital Course: (1) COPD exacerbation Improved. Likely due to acute bronchitis continued tobacco abuse. Was start on DuoNeb, BiPAP, steroids, long-acting anticholinergics and empiric antibiotics. Was discharged on long-acting anticholinergics, 2 days of more p.o. antibiotics and p.o. steroids to complete a total of 5 days. (2) Acute hypoxemic respiratory failure Due to problem #1. (3) Bronchitis Improving. She still having significant leukocytosis could likely be due to steroids. DC Rocephen continue azithromycin. Cultures remain negative. (4) SIRS (systemic inflammatory response syndrome) Normal nose on the day of discharge. Due to underlying infectious process. Volume resuscitated and was started on broad-spectrum antibiotics. Transferred to telemetry and her cultures remain negative throughout hospitalization. Hypothyroidism Restart home meds. No sign of hyper or hypothyroidism. (6) Tobacco abuse Extensively counseled on quitting. Nicotine patch. (7) Depression Denies any suicidal, homicidal or self-harm ideation. Start home meds. Physical Exam Vital Signs: Temp Pulse Resp BP Pulse Ox 98.4 F 65 16 119/63 95 10/01/18 18:53 10/01/18 18:53 10/01/18 18:53 10/01/18 18:53 10/01/18 18:53 Pulse Oximeter Continuous Start: 09/28/18 01: 32 Freq: RTQ4 Status: Discharge Document 10/01/18 16:00 JDR (Rec: 10/01/18 17:39 JDR [id number]) Pulse Oximetry Assessment Oxygen Saturation (92-100) 95 Oxygen Delivery Method Room Air Equipment Usage Equipment in Use Continuous SpO2 Machine # 4 Intake & Output 10/01/18 10/02/18 10/03/18 06:59 06:59 06:59 Intake Total 2078 1438 Balance 2078 1438 Weight 70.5 kg Results Laboratory Results: 10/01/18 06:22 10/01/18 06:22 Impressions: Chest X-Ray 09/27/18 14:07 IMPRESSION: No acute abnormality of the lungs in AP projection. No new airspace opacity. Chest/Abdomen CTA 09/27/18 14:29 IMPRESSION: 1. There is no evidence of pulmonary embolus. 2. Pulmonary emphysema. Chronic interstitial fibrosis. Qualifiers - * PATIENT BEING DISCHARGED WITH ANY OF THE FOLLOWING DIAGNOSIS: No VTE patient discharged on overlapping Therapy?: Yes
== END 2018-10-01 19:14 | disposition home or self-care (01) | DRG 202 ==
LOC: ER 13:24 → EH 16:42 → INTOOBSV 16:42 → 4N 20:58 → OBSVTOIN 09-29 09:40
PROVIDERS: ADMIT Hospitalist; ATTEND Hospitalist
PROC: 5A09357 Assistance with Respiratory Ventilation, Less than 24 Consecutive Hours, Continuous Positive Airway Pressure (ICD-10-PCS; principal; 2018-09-27)
PROC: 3E0F73Z Introduction of Anti-inflammatory into Respiratory Tract, Via Natural or Artificial Opening (ICD-10-PCS; 2018-09-27)
DX: J20.9 Acute bronchitis, unspecified (principal); J96.01 Acute respiratory failure with hypoxia; J44.0 Chronic obstructive pulmonary disease with (acute) lower respiratory infection; J43.9 Emphysema, unspecified; E03.9 Hypothyroidism, unspecified; F32.9 Major depressive disorder, single episode, unspecified; M19.90 Unspecified osteoarthritis, unspecified site; F17.210 Nicotine dependence, cigarettes, uncomplicated; F10.10 Alcohol abuse, uncomplicated; Z90.710 Acquired absence of both cervix and uterus; Z79.899 Other long term (current) drug therapy; Z90.49 Acquired absence of other specified parts of digestive tract; Z82.49 Family history of ischemic heart disease and other diseases of the circulatory system
CPT/HCPCS: 36415; 71045; 71275; 80053; 81001; 82550; 82553; 82803; 82962; 83036; 83605; 83735; 84484; 85025; 87040; 87070; 87086; 87205; 87804; 93005; 93010; 94640; 94762; 96361; 96365; 96367; 96375; 99285; G0378; J0456; J0696; J1644; J1885; J2930; J3490; J7030; J7060; J7512; J7614; J7620

== ENCOUNTER 2018-12-19 16:55 | Inpatient (IN) | payer OTHER ==
[2018-12-19] MEDS ORDERED: IPRATROPIUM/ALBUTEROL 0.5-2.5 MG/3 ML AMPUL NEB ONE (17:53)
[2018-12-19] MEDS ORDERED: RINGERS SOLUTION,LACTATED 1,000 ML IV ONE ×2 (17:54→19:18)
[2018-12-19] MEDS ORDERED: METHYLPREDNISOLONE INJ 125 MG/2 ML SDV IV ONE (17:54)
--- NOTE | 2018-12-19 17:56 | ER Document Report ---
ED Medical Screen (RME) - General Chief Complaint: Painful Cough Stated Complaint: FLU SYMPTOMS Time Seen by Provider: 12/19/18 17:35 Primary Care Provider: [facility] [Primary Care Provider] - Follow up as needed Notes: Patient is a 58-year-old female with COPD that presents to the emergency department for chief complaint of shortness of breath and difficulty breathing. Patient states his been having a harsh cough for the past week and second much better, complains of rib pain as well, and pain with a deep breath. ROS: Other than noted above, the 12 point review of systems was reviewed with the patient and were negative, all pertinent findings are included in the HPI. PHYSICAL EXAMINATION: Vital signs reviewed. GENERAL: Patient appears uncomfortable HEAD: Atraumatic, normocephalic. EYES: Pupils equal round extraocular movements intact, conjunctiva are normal. ENT: Nares patent NECK: Normal range of motion CV: Heart regular rate and rhythm LUNGS: Diminished lung sounds and diffuse wheezing throughout all lung weller. Musculoskeletal: Normal range of motion NEUROLOGICAL: Normal speech PSYCH: Normal mood, normal affect. MDM: Patient seen and examined for rapid initial assessment. Vital signs reviewed. A comprehensive ED assessment and evaluation of the patient, analysis of test results and completion of the medical decision making process will be conducted by additional ED providers. *Note is created using voice recognition software and may contain spelling, syntax or grammatical errors. TRAVEL OUTSIDE OF THE [place] IN LAST 30 DAYS: No - Related Data Allergies/Adverse Reactions: oxycodone Allergy (Mild, Verified 09/27/18 21:24) itching Past Medical History - Social History Frequency of alcohol use: Occasional Drug Abuse: None Pulmonary Medical History: Reports: Hx Bronchitis, Hx COPD Endocrine Medical History: Reports: Hx Hypothyroidism Renal/ Medical History: Denies: Hx Peritoneal Dialysis Musculoskeltal Medical History: Reports Hx Arthritis, Reports Hx Musculoskeletal Trauma Psychiatric Medical History: Reports: Hx Depression Traumatic Medical History: Reports: Hx Fractures - Right arm Past Surgical History: Reports: Hx Section, Hx Cholecystectomy, Hx Hysterectomy - Immunizations Hx Diphtheria, Pertussis, Tetanus Vaccination: Yes History of Influenza Vaccine for 07/2017 - 12/2017 Season: Refused Physical Exam - Vital signs Vitals: Temp Pulse Resp BP Pulse Ox 98.4 F 79 22 H 90/53 L 93 12/19/18 17:16 12/19/18 17:16 12/19/18 17:16 12/19/18 17:16 12/19/18 17:16 Course - Vital Signs Vital signs: Temp Pulse Resp BP Pulse Ox 98.4 F 79 22 H 90/53 L 93 12/19/18 17:20 12/19/18 17:20 12/19/18 17:20 12/19/18 17:20 12/19/18 17:20 Doctor's Discharge - Discharge Referrals: [facility] [Primary [facility]] - Follow up as needed
[2018-12-19 19:01] LABS: ABSOLUTE BASOPHILS # (AUTO) 0.1 10^3/uL (0.0-0.2); ABSOLUTE EOSINOPHILS # (AUTO) 0.4 10^3/uL (0.0-0.6); ABSOLUTE LYMPHOCYTES (AUTO) 1.4 10^3/uL (0.5-4.7); ABSOLUTE MONOCYTES (AUTO) 1.1 10^3/uL (0.1-1.4); ABSOLUTE NEUT (AUTO) 9.5 10^3/uL (1.7-8.2); BASOPHILS % (AUTO) 0.7 % (0-2); EOSINOPHILS % (AUTO) 3.4 % (0-6); HEMATOCRIT 41.2 % (36.0-47.0); HEMOGLOBIN 13.9 g/dL (12.0-15.5); LYMPHOCYTES % (AUTO) 11.5 % (13-45); MEAN CORPUSCULAR HEMOGLOBIN 30.7 pg (27.0-33.4); MEAN CORPUSCULAR HGB CONC 33.7 g/dL (32.0-36.0); MEAN CORPUSCULAR VOLUME 91 fl (80-97); MONOCYTES % (AUTO) 8.8 % (3-13); PLATELET COUNT 371 10^3/uL (150-450); RED BLOOD COUNT 4.53 10^6/uL (3.72-5.28); RED CELL DISTRIBUTION WIDTH 13.1 % (11.5-14.0); SEGMENTED NEUTROPHILS % (AUTO) 75.6 % (42-78); TOTAL CELLS COUNTED % (AUTO) 100 %; WHITE BLOOD COUNT 12.5 10^3/uL (4.0-10.5)
[2018-12-19 19:13] LABS: ALANINE AMINOTRANSFERASE 32 U/L (9-52); ALBUMIN 4.2 g/dL (3.5-5.0); ALKALINE PHOSPHATASE 92 U/L (38-126); ANION GAP 10 (5-19); ASPARTATE AMINO TRANSFERASE 28 U/L (14-36); BILIRUBIN,DIRECT 0.2 mg/dL (0.0-0.4); BILIRUBIN,TOTAL 0.4 mg/dL (0.2-1.3); BLOOD UREA NITROGEN 11 mg/dL (7-20); CALCIUM 9.8 mg/dL (8.4-10.2); CARBON DIOXIDE 33 mmol/L (22-30); CHLORIDE 98 mmol/L (98-107); GLUCOSE 86 mg/dL (75-110); POTASSIUM 4.1 mmol/L (3.6-5.0); SODIUM 141.4 mmol/L (137-145); TOTAL PROTEIN 7.4 g/dL (6.3-8.2)
[2018-12-19] MEDS ORDERED: ALBUTEROL SULFATE 0.083% NEB 2.5 MG/3 ML AMPUL NEB ONE (19:20)
--- NOTE | 2018-12-19 19:20 | ER Document Report ---
ED General - General Chief Complaint: Painful Cough Stated Complaint: FLU SYMPTOMS Time Seen by Provider: 12/19/18 17:35 Notes: Patient is a 58-year-old female with a past medical history of COPD, continues to smoke who presents with 2-3 days of progressively worsening cough, fever at home, and increasing shortness of breath. The patient reports that her symptoms started gradually and have gotten progressively worse over that time. Has been trying home nebulizers with minimal improvement of her symptoms. States that she does not believe her COPD has never gotten this bad before. Has not seen her general physician regarding today's concerns. Describes diffuse, stabbing chest wall pain with coughing but denies any inspiratory pain or pleuritic pain. Nothing seems to improve or worsen that pain. TRAVEL OUTSIDE OF THE [place] IN LAST 30 DAYS: No - Related Data Allergies/Adverse Reactions: oxycodone Allergy (Mild, Verified 09/27/18 21:24) itching Past Medical History - General Information source: Patient - Social History Smoking Status: Current Every Day Smoker Frequency of alcohol use: Occasional Drug Abuse: None Lives with: Spouse/Significant other Family History: Reviewed & Not Pertinent, Hypertension Patient has suicidal ideation: No Patient has homicidal ideation: No Pulmonary Medical History: Reports: Hx Bronchitis, Hx COPD Endocrine Medical History: Reports: Hx Hypothyroidism Renal/ Medical History: Denies: Hx Peritoneal Dialysis Musculoskeletal Medical History: Reports Hx Arthritis, Reports Hx Musculoskeletal Trauma Psychiatric Medical History: Reports: Hx Depression Traumatic Medical History: Reports: Hx Fractures - Right arm Past Surgical History: Reports: Hx Section, Hx Cholecystectomy, Hx Hyst erectomy - Immunizations Hx Diphtheria, Pertussis, Tetanus Vaccination: Yes Hx Pneumococcal Vaccination: 02/04/13 Review of Systems - Review of Systems Notes: Constitutional: Positive for fever. HENT: Negative for sore throat. Eyes: Negative for visual changes. Cardiovascular: Negative for chest pain. Respiratory: Positive for shortness of breath Gastrointestinal: Negative for abdominal pain, vomiting or diarrhea. Genitourinary: Negative for dysuria. Musculoskeletal: Positive for chest wall pain with coughing Skin: Negative for rash. Neurological: Negative for headaches, weakness or numbness. 10 point ROS negative except as marked above and in HPI. Physical Exam - Vital signs Vitals: Temp Pulse Resp BP Pulse Ox 98.4 F 79 22 H 90/53 L 93 12/19/18 17:16 02/24/19 17:16 12/19/18 17:16 12/19/18 17:16 12/19/18 17:16 Interpretation: Hypotensive Notes: PHYSICAL EXAMINATION: GENERAL: Appears unwell but in mild to moderate respiratory distress HEAD: Atraumatic, normocephalic. EYES: Pupils equal round and reactive to light, extraocular movements intact, sclera anicteric, conjunctiva are normal. ENT: nares patent, oropharynx clear without exudates. Dry mucous membranes. NECK: Normal range of motion, supple without lymphadenopathy LUNGS: Moderate respiratory distress, diminished air movement in all lung fiel ds. Coarse expiratory wheezing throughout. HEART: Regular tachycardia without murmurs ABDOMEN: Soft, nontender, normoactive bowel sounds. No guarding, no rebound. No masses appreciated. EXTREMITIES: Normal range of motion, no pitting or edema. No cyanosis. NEUROLOGICAL: No focal neurological deficits. Moves all extremities spontaneously and on command. PSYCH: Normal mood, normal affect. SKIN: Warm, Dry, normal turgor, no rashes or lesions noted. Course - Re-evaluation Re-evalutation: 12/19/18 19:08 Patient presents in moderate respiratory distress, able to speak in sentences but labored in her breathing. Diminished air movement in all lung weller with coarse wheezing in all lung weller. Patient's initial vitals show tachycardia as well as hypotension. Blood pressure at the time of my assessment is 91 on 51. On supplemental oxygen as well as continuous nebulizer she is saturating 98%. She has received 750 cc of lactated Ringer's. A second liter will be immediately hung given her hypotension. Empiric coverage with levofloxacin will be initiated as patient has a leukocytosis, has been febrile at home up to 103 F, meet sepsis criteria. Will hold off on magnesium infusion at this point given her hypotension. She is on continuous albuterol and ipratropium nebulizers. She has received 125 mg of Solu-Medrol. Chest x-ray pending. Will continue to reassess at regular intervals. Patient is in guarded condition. 1930-patient continues to have elevated work of breathing although is improving significantly on continuous nebulizers. Will continue to reassess. 12/19/18 20:26 I reassessed the patient on multiple occasions. Blood pressure has improved with IV fluid resuscitation. Work of breathing likewise improved with continuous nebulizers. However given her initial hypotension, initial hypoxemia, work of breathing. I do not believe she would be safe for outpatient management. I discussed with the hospitalist Dr. Bhatt who has except the patient for admission. - Vital Signs Vital signs: Temp Pulse Resp BP Pulse Ox 98.6 F 89 20 128/55 H 97 12/20/18 00:51 12/20/18 00:51 12/20/18 00:51 12/20/18 00:51 12/20/18 00:51 - Laboratory Result Diagrams: 12/19/18 18:40 12/19/18 18:40 Laboratory results interpreted by me: 12/19/18 12/19/18 12/19/18 18:40 18:40 19:50 WBC 12.5 H Lymphocytes % 11.5 L Absolute Neutrophils 9.5 H VBG pCO2 66.6 H* VBG HCO3 33.9 H Carbon Dioxide 33 H - Diagnostic Test Radiology reviewed: Image reviewed, Reports reviewed Radiology results interpreted by me: 12/19/18 20:29 Chest x-ray: No acute infiltrate or pneumothorax Critical Care Note - Critical Care Note Total time excluding time spent on procedures (mins): 36 Comments: Critical care time spent obtaining history from patient or surrogate, discussions with consultants, development of treatment plan with patient or surrogate, evaluation of patient's response to treatment, examination of patient, ordering and performing treatments and interventions, ordering and review of laboratory studies, re-evaluation of patient's condition, ordering and review of radiographic studies and review of old charts Discharge - Discharge Clinical Impression: COPD exacerbation, Respiratory distress, Acute hypoxemic respiratory failure Hypotension Qualifiers: Hypotension type: unspecified hypotension type Qualified Code(s): I95.9 - Hypotension, unspecified Condition: Fair Disposition: ADMITTED INPATIENT Admitting Provider: Hospitalist Unit Admitted: Medical Floor
[2018-12-19 19:27] LABS: A TYPE INFLUENZA AG NEGATIVE (NEGATIVE); B INFLUENZA AG NEGATIVE (NEGATIVE)
[2018-12-19 19:57] LABS: VENOUS BLOOD BASE EXCESS 5.8 mmol/L; VENOUS BLOOD HCO3 33.9 mmol/L (20-32); VENOUS BLOOD PH 7.32 (7.30-7.42)
--- NOTE | 2018-12-19 19:59 | RADIOLOGY REPORT (SQ) ---
EXAM DESCRIPTION: CHEST 2 VIEWS COMPLETED DATE/TIME: 12/19/2018 7:36 pm REASON FOR STUDY: chest pain, cough, short of breath COMPARISON: 09/27/2018 and earlier EXAM PARAMETERS: NUMBER OF VIEWS: two views TECHNIQUE: Digital Frontal and Lateral radiographic views of the chest acquired. RADIATION DOSE: NA LIMITATIONS: none FINDINGS: LUNGS AND PLEURA: No opacities, masses or pneumothorax. No pleural effusion. MEDIASTINUM AND HILAR STRUCTURES: No masses or contour abnormalities. HEART AND VASCULAR STRUCTURES: Heart normal size. No evidence for failure. BONES: No acute findings. HARDWARE: None in the chest. OTHER: No other significant finding. IMPRESSION: NO ACUTE RADIOGRAPHIC FINDING IN THE CHEST. TECHNICAL DOCUMENTATION: JOB ID: [id number] [employer]- All Rights Reserved Reading location - IP/workstation name: [email or web address]
[2018-12-19 20:00] LABS: VENOUS BLOOD PCO2 66.6 mmHg (35-63)
[2018-12-19] MEDS ORDERED: LEVOFLOXACIN 750 MG/D5W RTU 0 MG/0 ML RTUPB IV ONE (20:20)
[2018-12-19] MEDS ORDERED: LEVOFLOXACIN 750 MG/D5W RTU 750 MG/150 ML RTUPB IV ONE (21:30)
[2018-12-19] MEDS ORDERED: MAG HYDROX/AL HYDROX/SIMETH SUSP 30 ML UDCUP PO PRN (22:07)
[2018-12-19] MEDS ORDERED: MAGNESIUM HYDROXIDE SUSP 30 ML UDCUP PO PRN (22:07)
[2018-12-19] MEDS ORDERED: ONDANSETRON 4 MG TAB.RAPDIS PO PRN (22:07)
[2018-12-19] MEDS ORDERED: ONDANSETRON HCL INJ/PF 4 MG/2 ML SDV IV PRN (22:07)
[2018-12-19] MEDS ORDERED: RINGERS SOLUTION,LACTATED 1,000 ML IV PRN (22:07)
[2018-12-19] MEDS ORDERED: NALBUPHINE HCL INJ 10 MG/1 ML AMPULE IV PRN (22:13)
[2018-12-19] MEDS ORDERED: NICOTINE 21 MG/24 HR PATCH.TD24 TD PRN (22:13)
[2018-12-19] MEDS ORDERED: ALBUTEROL SULFATE 0.083% NEB 2.5 MG/3 ML AMPUL NEB PRN (22:13)
[2018-12-19] MEDS ORDERED: ACETAMINOPHEN 325 MG TABLET PO PRN (22:13)
--- NOTE | 2018-12-19 22:31 | EKG REPORT ---
SEVERITY:- ABNORMAL ECG - SINUS RHYTHM NONSPECIFIC T ABNORMALITIES, ANTERIOR LEADS : Confirmed by: Anthony Burgess MD 19-Dec-2018 22:31:10
[2018-12-19] MEDS: IPRATROPIUM BROMIDE 0.02% NEB 0.5 MG/2.5 ML AMPUL NEB SCH (23:03)
[2018-12-19] MEDS: LEVALBUTEROL HCL NEB 1.25 MG/3 ML AMPUL NEB SCH (23:03)
[2018-12-19 23:08] LABS: CREATINE KINASE MB 0.78 ng/mL (<4.55); TROPONIN I < 0.012 ng/mL
[2018-12-20] MEDS ORDERED: METHYLPREDNISOLONE INJ 40 MG/1 ML SDV IV SCH
[2018-12-20 00:55] LABS: APPEARANCE,URINE CLEAR; BILIRUBIN,URINE NEGATIVE (NEGATIVE); COLOR,URINE STRAW; GLUCOSE, URINE >=500 mg/dL (NEGATIVE); KETONES,URINE 20 mg/dL (NEGATIVE); LEUKOCYTE ESTERASE,URINE NEGATIVE (NEGATIVE); NITRITE,URINE NEGATIVE (NEGATIVE); PROTEIN,URINE NEGATIVE (NEGATIVE); URINE SPECIFIC GRAVITY 1.002; UROBILINOGEN,URINE NEGATIVE mg/dL (<2.0)
[2018-12-20 01:08] LABS: URINE AMPHETAMINES SCREEN NEGATIVE; URINE BARBITURATES SCREEN NEGATIVE; URINE BENZODIAZEPINES SCREEN NEGATIVE; URINE COCAINE SCREEN NEGATIVE; URINE MARIJUANA (THC) SCREEN NEGATIVE; URINE METHADONE SCREEN NEGATIVE; URINE PHENCYCLIDINE SCREEN NEGATIVE
--- NOTE | 2018-12-20 03:16 | PDOC H&P ---
History of Present Illness Admission Date/PCP: 12/19/18 20:37 [facility] Patient complains of: Dyspnea History of Present Illness: SANDOR AGGARWAL is a 58 year old female who presented to the emergency room with progressively worsening dyspnea over the last 2 weeks. She admits that she began having mild dyspnea primarily with exertion accompanied by an occasional nonproductive cough approximately 2 weeks ago and has been gradually worsening with increased frequency of cough and increasing dyspnea to the point where she now has severe dyspnea at rest, a severe paroxysmal nonproductive cough with associated sharp aching chest wall pain and a subjective fever, which reached a high of 103 F, 2 days ago. She further admits that her cough and dyspnea are substantially worsened when she smokes cigarettes or tries to ambulate more than a few feet. She admits prior similar episodes with exacerbations of her COPD and has not identified any other aggravating or ameliorating factors for her dyspnea. In the emergency room she was found to be mildly hypotensive with a systolic pressure in the 90s and 100s on arrival but this rapidly improved with IV fluid administration. She was further noted to have significant work of breathing and was found to be hypoxic on evaluation of her oxygen saturation. She was treated with supplemental oxygen, IV steroids and multiple nebulizer treatments with improvement but was still unable to sustain adequate oxygenation in order to be discharged. Patient was subsequently admitted to the hospital for further evaluation and treatment of her acute exacerbation of COPD. Past Medical History Cardiac Medical History: Denies: Coronary Artery Disease, Hypertension Pulmonary Medical History: Reports: Bronchitis, Chronic Obstructive Pulmonary Disease (COPD) Denies: Asthma, Intubation, Respiratory Failure, Sleep Apnea, Tuberculosis EENT Medical History: Reports: None Neurological Medical History: Denies: Hemorrhagic CVA, Ischemic CVA, Seizures Endocrine Medical History: Reports: Hypothyroidism Denies: Diabetes Mellitus Type 1, Diabetes Mellitus Type 2, Hyperthyroidism Renal/ Medical History: Denies: Chronic Kidney Disease, Nephrolithiasis Malignancy Medical History: Reports: None GI Medical History: Denies: Cirrhosis, Hepatitis Musculoskeltal Medical History: Reports: Arthritis Denies: Gout Skin Medical History: Denies: Eczema, Psoriasis Psychiatric Medical History: Reports: Depression, Tobacco Dependency Denies: Alcohol Dependency, Substance Abuse Traumatic Medical History: Reports: None Hematology: Denies: Anemia, Bleeding Tendencies Infectious Medical History: Reports: None Past Surgical History Past Surgical History: Reports: Section, Cholecystectomy, Hysterectomy Social History Information Source: Patient Lives with: Alone Smoking Status: Current Every Day Smoker Frequency of Alcohol Use: Occasional Hx Recreational Drug Use: No Drugs: None Hx Prescription Drug Abuse: No - Advance Directive Resuscitation Status: Full Code Surrogate healthcare decision maker:: Shahana Yi Family History Family History: Hypertension, Other - Stroke. denies: CAD, DM, Malignancy - [id number] Parental Family History Reviewed: Yes Children Family History Reviewed: No Sibling(s) Family History Reviewed.: Yes Medication/Allergy Home Medications: Citalopram Hydrobromide [Celexa 20 mg Tablet] 20 mg PO DAILY 09/10/17 Cyanocobalamin (Vitamin B-12) [Vitamin B-12] 1,000 mcg PO DAILY 09/10/17 Estradiol [Estrace] 1 mg PO QAM 09/10/17 Levothyroxine Sodium [Synthroid 0.075 mg Tablet] 0.075 mg PO QAM 09/10/17 Vit 40/Iron/Folic/Dha [ Multi-Dha Softgel] 1 each PO DAILY 09/10/17 Albuterol Sulfate [Proair HFA Inhalation Aerosol 8.5 gm MDI] 1 puff IH Q6 30 Days #1 mdi 10/01/18 Allergies/Adverse Reactions: oxycodone Allergy (Mild, Verified 09/27/18 21:24) itching Review of Systems Constitutional: PRESENT: as per HPI, fever(s). ABSENT: chills Eyes: ABSENT: visual disturbances, other - Eye pain Ears: ABSENT: hearing changes, other - Ear pain Nose, Mouth, and Throat: ABSENT: mouth pain, sore throat Cardiovascular: PRESENT: chest pain, dyspnea on exertion. ABSENT: orthropnea, palpitations Respiratory: PRESENT: cough, dyspnea Gastrointestinal: ABSENT: abdominal pain, constipation, diarrhea, nausea, vomiting Genitourinary: ABSENT: dysuria, hematuria Musculoskeletal: ABSENT: deformity, joint swelling Integumentary: ABSENT: pruritus, rash Neurological: ABSENT: confusion, convulsions, focal weakness, memory loss Psychiatric: ABSENT: anxiety, depression Endocrine: ABSENT: cold intolerance, heat intolerance Hematologic/Lymphatic: ABSENT: easy bleeding, easy bruising Physical Exam Vital Signs: Temp Pulse Resp BP Pulse Ox 98.4 F 79 24 H 97/52 L 100 12/19/18 17:20 12/19/18 17:20 12/19/18 19:03 12/19/18 19:03 12/19/18 19:03 Intake & Output 12/17/18 12/18/18 12/19/18 23:59 23:59 23:59 Intake Total 1000 Balance 1000 Weight 70.5 kg General appearance: PRESENT: no acute distress, cooperative, other - On 02 by nasal cannula at 2 L/min time my evaluation Head exam: PRESENT: atraumatic, normocephalic Eye exam: PRESENT: conjunctiva pink, EOMI. ABSENT: scleral icterus Ear exam: PRESENT: normal external ear exam. ABSENT: bleeding, drainage Mouth exam: PRESENT: dry mucosa, neck supple Neck exam: ABSENT: thyromegaly, tracheal deviation Respiratory exam: PRESENT: accessory muscle use, decreased breath sounds - Mildly to moderately decreased breath sounds throughout all weller. Consistent with mild to moderate COPD., prolonged expiratory phas - Moderately prolonged expiratory phase, symmetrical, wheezes - Moderate expiratory wheezes noted in all weller Cardiovascular exam: PRESENT: RRR. ABSENT: clicks, gallop, rubs Pulses: PRESENT: normal radial pulses, normal dorsalis pedis pul Vascular exam: PRESENT: normal capillary refill. ABSENT: pallor GI/Abdominal exam: PRESENT: normal bowel sounds, soft Rectal exam: PRESENT: deferred Extremities exam: ABSENT: joint swelling, pedal edema Musculoskeletal exam: PRESENT: full ROM, normal inspection. ABSENT: tenderness Neurological exam: PRESENT: alert, oriented to person, oriented to place, oriented to time, oriented to situation, CN II-XII grossly intact. ABSENT: motor sensory deficit Psychiatric exam: PRESENT: appropriate affect, normal mood Skin exam: PRESENT: dry, intact, warm. ABSENT: jaundice, rash, urticaria Results Laboratory Results: 12/19/18 18:40 12/19/18 18:40 12/19/18 12/19/18 12/19/18 18:40 18:40 18:40 WBC 12.5 H RBC 4.53 Hgb 13.9 Hct 41.2 MCV 91 MCH 30.7 MCHC 33.7 RDW 13.1 Plt Count 371 Seg Neutrophils % 75.6 Lymphocytes % 11.5 L Monocytes % 8.8 Eosinophils % 3.4 Basophils % 0.7 Absolute Neutrophils 9.5 H Absolute Lymphocytes 1.4 Absolute Monocytes 1.1 Absolute Eosinophils 0.4 Absolute Basophils 0.1 VBG pH VBG pCO2 VBG HCO3 VBG Base Excess Sodium 141.4 Potassium 4.1 Chloride 98 Carbon Dioxide 33 H Anion Gap 10 BUN 11 Creatinine 0.73 Est GFR ( Amer) > 60 Est GFR (Non-Af Amer) > 60 Glucose 86 Lactic Acid 0.9 Calcium 9.8 Total Bilirubin 0.4 AST 28 ALT 32 Alkaline Phosphatase 92 Total Protein 7.4 Albumin 4.2 12/19/18 19:50 WBC RBC Hgb Hct MCV MCH MCHC RDW Plt Count Seg Neutrophils % Lymphocytes % Monocytes % Eosinophils % Basophils % Absolute Neutrophils Absolute Lymphocytes Absolute Monocytes Absolute Eosinophils Absolute Basophils VBG pH 7.32 VBG pCO2 66.6 H* VBG HCO3 33.9 H VBG Base Excess 5.8 Sodium Potassium Chloride Carbon Dioxide Anion Gap BUN Creatinine Est GFR ( Amer) Est GFR (Non-Af Amer) Glucose Lactic Acid Calcium Total Bilirubin AST ALT Alkaline Phosphatase Total Protein Albumin 12/19/18 18:40 Troponin I < 0.012 Impressions: Chest X-Ray 12/19/18 17:53 IMPRESSION: NO ACUTE RADIOGRAPHIC FINDING IN THE CHEST. Assessment & Plan - Diagnosis (1) Acute hypoxemic respiratory failure Is this a current diagnosis for this admission?: Yes Plan: Patient be treated with supplemental oxygen on an as-needed basis for maintenance of an O2 saturation between 90 and 94%. (2) Hypotension due to hypovolemia Is this a current diagnosis for this admission?: Yes Plan: Patient was minimally hypotensive upon her arrival at the emergency room and her blood pressure rapidly returned to a normal range after initiation of IV fluid therapy. She will be continued on IV fluids for the next 12-24 hours until her oral intake is judged to be adequate enough to allow discontinuation of fluid support. She will be receiving lactated Ringer's at 167 mL/h. (3) COPD exacerbation Is this a current diagnosis for this admission?: Yes Plan: Patient be treated with an aggressive pulmonary toilet utilizing Xopenex, Atrovent, Pulmicort and albuterol via nebulizer. She will also receive Solu-Med rol IV and supplemental oxygen as required. She is treated empirically with Levaquin for a potential pneumonitis initiated by the emergency room physician. I will continue her on Levaquin 750 mg daily for a total of 4 doses of empiric therapy. A daily CBC, magnesium and BMP will be obtained. She will also have Nubain 10 mg IV every 3 hours as needed for chest pain associated with her cough (4) Hypothyroidism Qualifiers: Hypothyroidism type: unspecified Is this a current diagnosis for this admission?: Yes Plan: Patient's thyroid replacement medication be continued during her hospital course . A thyroid profile will be obtained to evaluate the efficacy of her therapy. (5) Depression Qualifiers: Depression Type: unspecified Qualified Code(s): F32.9 - Major depressive disorder, single episode, unspecified Is this a current diagnosis for this admission?: Yes Plan: Patient will be continued on her usual antidepressants throughout her hospital course with changes made only as required. (6) Tobacco use disorder, severe, dependence Is this a current diagnosis for this admission?: Yes Plan: Patient will be treated with a nicotine patch for replacement therapy. Smoking cessation has been advised and counseled briefly. - Time Time Spent: 30 to 50 Minutes Critical Time spent with patient: Less than 15 minutes Smoking Cessation Education: 3 to 10 minutes Medications reviewed and adjusted accordingly: Yes Anticipated discharge: Home - Inpatient Certification Based on my medical assessment, after consideration of the patient's comorbidities, presenting symptoms, or acuity I expect that the services needed warrant INPATIENT care.: Yes I certify that my determination is in accordance with my understanding of Medicare's requirements for reasonable and necessary INPATIENT services [42 CFR 412.3e].: Yes Medical Necessity: Need Close Monitoring Due to Risk of Patient Decompensation, Need For IV Fluids, Need for Nebulizer Therapy and Monitoring of Response, Need for Pain Control, Risk of Complication if Not Cared For in Hospital
[2018-12-20 04:53] LABS: HEMATOCRIT 35.6 % (36.0-47.0); HEMOGLOBIN 11.9 g/dL (12.0-15.5); MEAN CORPUSCULAR HEMOGLOBIN 30.1 pg (27.0-33.4); MEAN CORPUSCULAR HGB CONC 33.4 g/dL (32.0-36.0); MEAN CORPUSCULAR VOLUME 90 fl (80-97); PLATELET COUNT 303 10^3/uL (150-450); RED BLOOD COUNT 3.95 10^6/uL (3.72-5.28); WHITE BLOOD COUNT 13.7 10^3/uL (4.0-10.5)
[2018-12-20 05:14] LABS: ABSOLUTE MONOCYTES # (MANUAL) 0.3 10^3/uL (0.1-1.4); ABSOLUTE NEUTROPHILS# (MANUAL) 12.5 10^3/uL (1.7-8.2); BASOPHILS % (MANUAL) 0 % (0-2); EOSINOPHILS % (MANUAL) 0 % (0-6); LYMPHOCYTES % (MANUAL) 7 % (13-45); MONOCYTES % (MANUAL) 2 % (3-13); RBC MORPHOLOGY COMMENT NORMO-CYTIC/CHROMIC; SEGMENTED NEUTROPHILS % (MAN) 91 % (42-78); TOTAL CELLS COUNTED 100
[2018-12-20 05:15] LABS: PLATELET COMMENT ADEQUATE
[2018-12-20 05:19] LABS: ANION GAP 12 (5-19); BLOOD UREA NITROGEN 7 mg/dL (7-20); CALCIUM 9.3 mg/dL (8.4-10.2); CARBON DIOXIDE 27 mmol/L (22-30); CHLORIDE 103 mmol/L (98-107); CHOLESTEROL 146.71 mg/dL (0-200); CREATINE KINASE 85 U/L (30-135); GLUCOSE 308 mg/dL (75-110); SODIUM 141.7 mmol/L (137-145); TRIGLYCERIDES 61 mg/dL (<150)
[2018-12-20 05:29] LABS: DIRECT LDL 86 mg/dL (<100)
[2018-12-20 05:31] LABS: CREATINE KINASE MB 1.39 ng/mL (<4.55)
[2018-12-20 05:32] LABS: TROPONIN I < 0.012 ng/mL
[2018-12-20 05:34] LABS: FREE T3 2.15 pg/mL (2.77-5.27)
[2018-12-20 05:35] LABS: FREE T4 (FREE THYROXINE) 1.21 ng/dL (0.78-2.19)
[2018-12-20 05:48] LABS: THYROID STIMULATING HORMONE 0.46 uIU/mL (0.47-4.68)
[2018-12-20] MEDS: HEPARIN SOD (PORCINE) 5,000 UNIT/ML 1 ML SYRINGE SUBCUT SCH ×3 (07:28→21:22)
[2018-12-20] MEDS: IPRATROPIUM BROMIDE 0.02% NEB 0.5 MG/2.5 ML AMPUL NEB SCH ×3 (08:33→23:51)
[2018-12-20] MEDS: LEVALBUTEROL HCL NEB 1.25 MG/3 ML AMPUL NEB SCH ×3 (08:33→23:51)
[2018-12-20] MEDS: BUDESONIDE NEB 0.5 MG/2 ML AMPUL NEB SCH ×2 (08:33→20:47)
[2018-12-20] MEDS: METHYLPREDNISOLONE INJ 40 MG/1 ML SDV IV SCH ×3 (08:53→21:22)
[2018-12-20] MEDS: CYANOCOBALAMIN (VITAMIN B-12) 1,000 MCG TABLET PO SCH (09:58)
[2018-12-20] MEDS: LEVOTHYROXINE SODIUM 0.075 MG TABLET PO SCH (09:58)
[2018-12-20] MEDS: CITALOPRAM HYDROBROMIDE 20 MG TABLET PO SCH (10:15)
[2018-12-20] MEDS: FAMOTIDINE 20 MG TABLET PO SCH ×2 (10:15→21:21)
[2018-12-20] MEDS: DOCUSATE SODIUM 100 MG CAPSULE PO SCH ×2 (10:15→19:37)
[2018-12-20 11:50] LABS: CREATINE KINASE MB 2.19 ng/mL (<4.55)
[2018-12-20 11:52] LABS: TROPONIN I < 0.012 ng/mL
--- NOTE | 2018-12-20 18:54 | PDOC PROGRESS REPORT ---
Subjective Progress Note for:: 12/20/18 Subjective:: SANDOR AGGARWAL is a 58 year old female who presented to the emergency room with progressively worsening dyspnea over the last 2 weeks. She admits that she began having mild dyspnea primarily with exertion accompanied by an occasional nonproductive cough approximately 2 weeks ago and has been gradually worsening with increased frequency of cough and increasing dyspnea to the point where she now has severe dyspnea at rest, a severe paroxysmal nonproductive cough with associated sharp aching chest wall pain and a subjective fever, which reached a high of 103 F, 2 days ago. She further admits that her cough and dyspnea are substantially worsened when she smokes cigarettes or tries to ambulate more than a few feet. She admits prior similar episodes with exacerbations of her COPD and has not identified any other aggravating or ameliorating factors for her dy spnea. In the emergency room she was found to be mildly hypotensive with a systolic pressure in the 90s and 100s on arrival but this rapidly improved with IV fluid administration. She was further noted to have significant work of breathing and was found to be hypoxic on evaluation of her oxygen saturation. She was treated with supplemental oxygen, IV steroids and multiple nebulizer treatments with improvement but was still unable to sustain adequate oxygenation in order to be discharged. Patient was subsequently admitted to the hospital for further evaluation and treatment of her acute exacerbation of COPD. 12/20/2018. No acute events overnight. Patient feeling much better compared to y . Complaining of chest congestion and not being able to bring up sputum otherwise denies any fever, chills, nausea, vomiting, diarrhea, constipation or any urinary symptoms. Reason For Visit: ACUTE EXACERBATION OF COPD WITH ACUTE HYPOXIC Physical Exam Vital Signs: Temp Pulse Resp BP Pulse Ox 98.6 F 68 16 134/64 H 100 12/20/18 15:40 12/20/18 16:49 12/20/18 16:49 12/20/18 15:40 12/20/18 16:49 Intake & Output 12/19/18 12/20/18 12/21/18 06:59 06:59 06:59 Intake Total 1999 2140 Output Total 500 500 Balance 1500 1640 Weight 70.5 kg General appearance: PRESENT: obese Respiratory exam: PRESENT: prolonged expiratory phas, wheezes. ABSENT: rales, rhonchi Cardiovascular exam: PRESENT: RRR. ABSENT: diastolic murmur, rubs, systolic murmur GI/Abdominal exam: PRESENT: normal bowel sounds, soft. ABSENT: distended, guarding, mass, organolmegaly, rebound, tenderness Neurological exam: PRESENT: alert, awake, oriented to person, oriented to place, oriented to time, oriented to situation, CN II-XII grossly intact. ABSENT: mot or sensory deficit Results Laboratory Results: 12/20/18 04:19 12/20/18 04:19 12/19/18 12/19/18 12/19/18 18:40 18:40 18:40 WBC 12.5 H RBC 4.53 Hgb 13.9 Hct 41.2 MCV 91 MCH 30.7 MCHC 33.7 RDW 13.1 Plt Count 371 Seg Neutrophils % 75.6 Lymphocytes % 11.5 L Monocytes % 8.8 Eosinophils % 3.4 Basophils % 0.7 Absolute Neutrophils 9.5 H Absolute Lymphocytes 1.4 Absolute Monocytes 1.1 Absolute Eosinophils 0.4 Absolute Basophils 0.1 VBG pH VBG pCO2 VBG HCO3 VBG Base Excess Sodium 141.4 Potassium 4.1 Chloride 98 Carbon Dioxide 33 H Anion Gap 10 BUN 11 Creatinine 0.73 Est GFR ( Amer) > 60 Est GFR (Non-Af Amer) > 60 Glucose 86 Lactic Acid 0.9 Calcium 9.8 Magnesium Total Bilirubin 0.4 AST 28 ALT 32 Alkaline Phosphatase 92 Total Protein 7.4 Albumin 4.2 Triglycerides Cholesterol LDL Cholesterol Direct VLDL Cholesterol HDL Cholesterol TSH Free T4 Free T3 pg/mL Urine Color Urine Appearance Urine pH Ur Specific [place] Urine Protein Urine Glucose (UA) Urine Ketones Urine Blood Urine Nitrite Ur Leukocyte Esterase Urine RBC (Auto) 12/19/18 12/19/18 12/20/18 19:50 23:20 04:19 WBC RBC Hgb Hct MCV MCH MCHC RDW Plt Count Seg Neutrophils % Lymphocytes % Monocytes % Eosinophils % Basophils % Absolute Neutrophils Absolute Lymphocytes Absolute Monocytes Absolute Eosinophils Absolute Basophils VBG pH 7.32 VBG pCO2 66.6 H* VBG HCO3 33.9 H VBG Base Excess 5.8 Sodium 141.7 Potassium 4.0 Chloride 103 Carbon Dioxide 27 Anion Gap 12 BUN 7 Creatinine 0.58 Est GFR ( Amer) > 60 Est GFR (Non-Af Amer) > 60 Glucose 308 H Lactic Acid Calcium 9.3 Magnesium 1.9 Total Bilirubin AST ALT Alkaline Phosphatase Total Protein Albumin Triglycerides 61 Cholesterol 146.71 LDL Cholesterol Direct 86 VLDL Cholesterol 12.0 HDL Cholesterol 54 TSH Free T4 Free T3 pg/mL Urine Color STRAW Urine Appearance CLEAR Urine pH 6.0 Ur Specific [place] 1.002 Urine Protein NEGATIVE Urine Glucose (UA) >=500 H Urine Ketones 20 H Urine Blood NEGATIVE Urine Nitrite NEGATIVE Ur Leukocyte Esterase NEGATIVE Urine RBC (Auto) 0 12/20/18 12/20/18 04:19 04:19 WBC 13.7 H RBC 3.95 Hgb 11.9 L Hct 35.6 L MCV 90 MCH 30.1 MCHC 33.4 RDW 13.0 Plt Count 303 Seg Neutrophils % Not Reportable Lymphocytes % Not Reportable Monocytes % Not Reportable Eosinophils % Not Reportable Basophils % Not Reportable Absolute Neutrophils Not Reportable Absolute Lymphocytes Not Reportable Absolute Monocytes Not Reportable Absolute Eosinophils Not Reportable Absolute Basophils Not Reportable VBG pH VBG pCO2 VBG HCO3 VBG Base Excess Sodium Potassium Chloride Carbon Dioxide Anion Gap BUN Creatinine Est GFR ( Amer) Est GFR (Non-Af Amer) Glucose Lactic Acid Calcium Magnesium Total Bilirubin AST ALT Alkaline Phosphatase Total Protein Albumin Triglycerides Cholesterol LDL Cholesterol Direct VLDL Cholesterol HDL Cholesterol TSH 0.46 L Free T4 1.21 Free T3 pg/mL 2.15 L Urine Color Urine Appearance Urine pH Ur Specific [place] Urine Protein Urine Glucose (UA) Urine Ketones Urine Blood Urine Nitrite Ur Leukocyte Esterase Urine RBC (Auto) 12/19/18 12/19/18 12/19/18 18:40 22:28 22:28 Creatine Kinase 76 CK-MB (CK-2) 0.78 Troponin I < 0.012 < 0.012 12/20/18 12/20/18 12/20/18 04:19 04:19 10:00 Creatine Kinase 85 87 CK-MB (CK-2) 1.39 Troponin I < 0.012 12/20/18 10:03 Creatine Kinase CK-MB (CK-2) 2.19 Troponin I < 0.012 Impressions: Chest X-Ray 12/19/18 17:53 IMPRESSION: NO ACUTE RADIOGRAPHIC FINDING IN THE CHEST. Assessment & Plan - Diagnosis (1) Acute hypoxemic respiratory failure Is this a current diagnosis for this admission?: Yes Plan: Improving. Due to underlying COPD exacerbation. Saturating 100% on 2 L. Continue treatment for underlying COPD exacerbation. (2) Hypotension due to hypovolemia Is this a current diagnosis for this admission?: Yes Plan: Euvolemic. Normotensive. DC IV fluids. Encourage p.o. fluid intake. Continue treating underlying pneumonia. Monitor volume status. (3) COPD exacerbation Is this a current diagnosis for this admission?: Yes Plan: Continue Xopenex, Atrovent, Pulmicort, IV steroids, BiPAP and empiric IV antibiotics. (4) Depression Qualifiers: Depression Type: unspecified Qualified Code(s): F32.9 - Major depressive disorder, single episode, unspecified Is this a current diagnosis for this admission?: Yes Plan: Start home meds. (5) Hypothyroidism Qualifiers: Hypothyroidism type: unspecified Is this a current diagnosis for this admission?: Yes Plan: Restart home meds. (6) Tobacco abuse Is this a current diagnosis for this admission?: Yes Plan: Consult on quitting. Continue NicoDerm patch.
[2018-12-20] MEDS ORDERED: GLUCAGON,HUMAN RECOMB 1 MG INJ IM PRN (18:55)
[2018-12-20] MEDS ORDERED: DEXTROSE 40% GEL 15 GM TUBE PO PRN ×2 (18:55)
[2018-12-20] MEDS ORDERED: DEXTROSE 50%-WATER 25 GM/50 ML DISP.SYRIN IV PRN ×2 (18:55)
[2018-12-20] MEDS ORDERED: LEVOFLOXACIN 750 MG/D5W RTU 750 MG/150 ML RTUPB IV ONE (19:30)
[2018-12-20] MEDS: LEVOFLOXACIN 750 MG TABLET PO SCH (19:37)
[2018-12-20] MEDS: GUAIFENESIN 600 MG TABLET.SA PO SCH (21:21)
[2018-12-20] MEDS ORDERED: NALBUPHINE HCL INJ 10 MG/1 ML AMPULE ONE (22:25)
[2018-12-21] MEDS: METHYLPREDNISOLONE INJ 40 MG/1 ML SDV IV SCH ×3 (03:41→21:52)
[2018-12-21] MEDS ORDERED: DIPHENHYDRAMINE HCL 25 MG CAPSULE PO PRN (04:04)
[2018-12-21] MEDS ORDERED: DIPHENHYDRAMINE HCL 50 MG/ML VIAL IV PRN (04:05)
[2018-12-21] MEDS: HEPARIN SOD (PORCINE) 5,000 UNIT/ML 1 ML SYRINGE SUBCUT SCH ×3 (06:17→21:53)
[2018-12-21] MEDS: LEVALBUTEROL HCL NEB 1.25 MG/3 ML AMPUL NEB SCH ×2 (08:36→15:24)
[2018-12-21] MEDS: IPRATROPIUM BROMIDE 0.02% NEB 0.5 MG/2.5 ML AMPUL NEB SCH ×2 (08:36→15:24)
[2018-12-21] MEDS: BUDESONIDE NEB 0.5 MG/2 ML AMPUL NEB SCH ×2 (08:36→20:48)
[2018-12-21 08:41] LABS: HEMATOCRIT 36.9 % (36.0-47.0); HEMOGLOBIN 12.5 g/dL (12.0-15.5); MEAN CORPUSCULAR HEMOGLOBIN 30.2 pg (27.0-33.4); MEAN CORPUSCULAR HGB CONC 33.9 g/dL (32.0-36.0); MEAN CORPUSCULAR VOLUME 89 fl (80-97); PLATELET COUNT 341 10^3/uL (150-450); RED BLOOD COUNT 4.14 10^6/uL (3.72-5.28)
[2018-12-21 08:46] LABS: WHITE BLOOD COUNT 28.3 10^3/uL (4.0-10.5)
[2018-12-21 08:52] LABS: ALANINE AMINOTRANSFERASE 14 U/L (9-52); ALBUMIN 3.9 g/dL (3.5-5.0); ALKALINE PHOSPHATASE 77 U/L (38-126); ANION GAP 8 (5-19); ASPARTATE AMINO TRANSFERASE 15 U/L (14-36); BILIRUBIN,DIRECT 0.2 mg/dL (0.0-0.4); BILIRUBIN,TOTAL 0.2 mg/dL (0.2-1.3); BLOOD UREA NITROGEN 11 mg/dL (7-20); CALCIUM 10.4 mg/dL (8.4-10.2); CARBON DIOXIDE 32 mmol/L (22-30); CHLORIDE 101 mmol/L (98-107); GLUCOSE 150 mg/dL (75-110); POTASSIUM 4.8 mmol/L (3.6-5.0); SODIUM 141.2 mmol/L (137-145); TOTAL PROTEIN 6.6 g/dL (6.3-8.2)
[2018-12-21 09:10] LABS: ABSOLUTE LYMPHOCYTES# (MANUAL) 1.4 10^3/uL (0.5-4.7); ABSOLUTE NEUTROPHILS# (MANUAL) 26.9 10^3/uL (1.7-8.2); BAND NEUTROPHILS % (MANUAL) 3 % (3-5); BASOPHILS % (MANUAL) 0 % (0-2); EOSINOPHILS % (MANUAL) 0 % (0-6); LYMPHOCYTES % (MANUAL) 5 % (13-45); MONOCYTES % (MANUAL) 0 % (3-13); PLATELET COMMENT ADEQUATE; RBC MORPHOLOGY COMMENT NORMO-CYTIC/CHROMIC; SEGMENTED NEUTROPHILS % (MAN) 92 % (42-78); TOTAL CELLS COUNTED 100
[2018-12-21] MEDS: FAMOTIDINE 20 MG TABLET PO SCH ×2 (09:16→21:49)
[2018-12-21] MEDS: CITALOPRAM HYDROBROMIDE 20 MG TABLET PO SCH (09:16)
[2018-12-21] MEDS: DOCUSATE SODIUM 100 MG CAPSULE PO SCH ×2 (09:16→17:54)
[2018-12-21] MEDS: GUAIFENESIN 600 MG TABLET.SA PO SCH ×3 (09:16→21:49)
[2018-12-21] MEDS: CYANOCOBALAMIN (VITAMIN B-12) 1,000 MCG TABLET PO SCH (09:17)
[2018-12-21] MEDS: LEVOTHYROXINE SODIUM 0.075 MG TABLET PO SCH (09:17)
[2018-12-21] MEDS: NYSTATIN CREAM 15 GM TP SCH ×2 (11:07→17:54)
--- NOTE | 2018-12-21 11:47 | PDOC PROGRESS REPORT ---
Subjective Progress Note for:: 12/21/18 Subjective:: This is a 58 year old female with COPD on 2lpm at home who presented to the emergency room with progressively worsening dyspnea and cough over the last 2 weeks. She was initially hypoxic in the ER and also mildly hypotensive but promptly resolved with IV fluids. She was admitted for COPD exacerbation. No acute event overnight. She continues to feel better. She says her SOB is alos improving but she is not at her baseline yet. She has a few bilateral wheezes this morning. Reason For Visit: ACUTE EXACERBATION OF COPD WITH ACUTE HYPOXIC Physical Exam Vital Signs: Temp Pulse Resp BP Pulse Ox 98.4 F 59 L 18 116/59 L 93 12/21/18 07:45 12/21/18 08:36 12/21/18 07:45 12/21/18 07:45 12/21/18 08:36 Intake & Output 12/20/18 12/21/18 12/22/18 06:59 06:59 06:59 Intake Total 2000 2860 480 Output Total 500 500 Balance 1500 2360 480 Weight 155 lb 6.814 oz 156 lb 4.924 oz General appearance: PRESENT: no acute distress, well-developed, well-nourished Head exam: PRESENT: atraumatic, normocephalic Eye exam: PRESENT: conjunctiva pink, EOMI, PERRLA. ABSENT: scleral icterus Ear exam: PRESENT: normal external ear exam Mouth exam: PRESENT: moist, tongue midline Neck exam: ABSENT: carotid bruit, JVD, lymphadenopathy, thyromegaly Respiratory exam: PRESENT: wheezes. ABSENT: rales, rhonchi Cardiovascular exam: PRESENT: RRR. ABSENT: diastolic murmur, rubs, systolic murmur Pulses: PRESENT: normal dorsalis pedis pul GI/Abdominal exam: PRESENT: normal bowel sounds, soft. ABSENT: distended, guarding, mass, organolmegaly, rebound, tenderness Rectal exam: PRESENT: deferred Neurological exam: PRESENT: alert, awake, oriented to person, oriented to place, oriented to time, oriented to situation, CN II-XII grossly intact. ABSENT: sally r sensory deficit Results Laboratory Results: 12/21/18 07:52 12/21/18 07:52 12/21/18 12/21/18 12/21/18 07:52 07:52 07:52 WBC 28.3 H D RBC 4.14 Hgb 12.5 Hct 36.9 MCV 89 MCH 30.2 MCHC 33.9 RDW 13.0 Plt Count 341 Seg Neutrophils % Not Reportable Lymphocytes % Not Reportable Monocytes % Not Reportable Eosinophils % Not Reportable Basophils % Not Reportable Absolute Neutrophils Not Reportable Absolute Lymphocytes Not Reportable Absolute Monocytes Not Reportable Absolute Eosinophils Not Reportable Absolute Basophils Not Reportable Sodium 141.2 Potassium 4.8 Chloride 101 Carbon Dioxide 32 H Anion Gap 8 BUN 11 Creatinine 0.59 Est GFR ( Amer) > 60 Est GFR (Non-Af Amer) > 60 Glucose 150 H Calcium 10.4 H Magnesium 2.1 Total Bilirubin 0.2 AST 15 ALT 14 Alkaline Phosphatase 77 Total Protein 6.6 Albumin 3.9 12/19/18 12/19/18 12/19/18 18:40 22:28 22:28 Creatine Kinase 76 CK-MB (CK-2) 0.78 Troponin I < 0.012 < 0.012 12/20/18 12/20/18 12/20/18 04:19 04:19 10:00 Creatine Kinase 85 87 CK-MB (CK-2) 1.39 Troponin I < 0.012 12/20/18 10:03 Creatine Kinase CK-MB (CK-2) 2.19 Troponin I < 0.012 Impressions: Chest X-Ray 12/19/18 17:53 IMPRESSION: NO ACUTE RADIOGRAPHIC FINDING IN THE CHEST. Assessment & Plan - Diagnosis (1) Acute on chronic respiratory failure with hypoxia Is this a current diagnosis for this admission?: Yes Plan: Secondary to COPD exacerbation. Saturating well on 2 lpm (home requirement). (2) COPD exacerbation Is this a current diagnosis for this admission?: Yes Plan: Currently on solumedrol 40 mg IV q6h. Reduce steroids to 40 mg q12. Continue breathing treatments. (3) Hypotension due to hypovolemia Is this a current diagnosis for this admission?: Yes Plan: Promptly resolved with IV fluids. - Time Time Spent with patient: 25-34 minutes
[2018-12-21] MEDS: LEVOFLOXACIN 750 MG TABLET PO SCH (17:54)
[2018-12-21] MEDS: INSULIN LISPRO 100 UNIT/ML 3 ML VIAL SUBCUT SCH ×4 (17:55→23:08)
[2018-12-22] MEDS: LEVALBUTEROL HCL NEB 1.25 MG/3 ML AMPUL NEB SCH ×2 (00:16→08:34)
[2018-12-22] MEDS: IPRATROPIUM BROMIDE 0.02% NEB 0.5 MG/2.5 ML AMPUL NEB SCH ×2 (00:16→08:34)
[2018-12-22] MEDS: HEPARIN SOD (PORCINE) 5,000 UNIT/ML 1 ML SYRINGE SUBCUT SCH ×3 (05:18→22:08)
[2018-12-22 06:50] LABS: HEMATOCRIT 35.7 % (36.0-47.0); MEAN CORPUSCULAR HEMOGLOBIN 29.8 pg (27.0-33.4); MEAN CORPUSCULAR HGB CONC 33.5 g/dL (32.0-36.0); MEAN CORPUSCULAR VOLUME 89 fl (80-97); PLATELET COUNT 320 10^3/uL (150-450); RED BLOOD COUNT 4.01 10^6/uL (3.72-5.28); RED CELL DISTRIBUTION WIDTH 12.8 % (11.5-14.0); WHITE BLOOD COUNT 24.7 10^3/uL (4.0-10.5)
[2018-12-22 07:03] LABS: ANION GAP 9 (5-19); BLOOD UREA NITROGEN 16 mg/dL (7-20); CALCIUM 9.9 mg/dL (8.4-10.2); CARBON DIOXIDE 31 mmol/L (22-30); CHLORIDE 99 mmol/L (98-107); GLUCOSE 133 mg/dL (75-110); POTASSIUM 4.7 mmol/L (3.6-5.0); SODIUM 138.8 mmol/L (137-145)
[2018-12-22 07:44] LABS: ABSOLUTE MONOCYTES # (MANUAL) 0.2 10^3/uL (0.1-1.4); ABSOLUTE NEUTROPHILS# (MANUAL) 22.5 10^3/uL (1.7-8.2); BASOPHILS % (MANUAL) 0 % (0-2); EOSINOPHILS % (MANUAL) 0 % (0-6); LYMPHOCYTES % (MANUAL) 5 % (13-45); METAMYELOCYTES % (MANUAL) 1 % (0); MONOCYTES % (MANUAL) 1 % (3-13); PLATELET COMMENT ADEQUATE; RBC MORPHOLOGY COMMENT NORMO-CYTIC/CHROMIC; SEGMENTED NEUTROPHILS % (MAN) 90 % (42-78); TOTAL CELLS COUNTED 100
[2018-12-22] MEDS: BUDESONIDE NEB 0.5 MG/2 ML AMPUL NEB SCH (08:34)
[2018-12-22] MEDS: INSULIN LISPRO 100 UNIT/ML 3 ML VIAL SUBCUT SCH ×4 (10:37→22:28)
[2018-12-22] MEDS: METHYLPREDNISOLONE INJ 40 MG/1 ML SDV IV SCH ×2 (10:44→22:07)
[2018-12-22] MEDS: FAMOTIDINE 20 MG TABLET PO SCH ×2 (10:45→22:04)
[2018-12-22] MEDS: DOCUSATE SODIUM 100 MG CAPSULE PO SCH ×2 (10:45→17:17)
[2018-12-22] MEDS: LEVOTHYROXINE SODIUM 0.075 MG TABLET PO SCH (10:45)
[2018-12-22] MEDS: GUAIFENESIN 600 MG TABLET.SA PO SCH ×2 (10:45→22:04)
[2018-12-22] MEDS: NYSTATIN CREAM 15 GM TP SCH ×2 (10:45→17:18)
[2018-12-22] MEDS: CITALOPRAM HYDROBROMIDE 20 MG TABLET PO SCH (10:45)
--- NOTE | 2018-12-22 11:55 | PDOC PROGRESS REPORT ---
Subjective Progress Note for:: 12/22/18 Subjective:: This is a 58 year old female with COPD on 2lpm at home who presented to the emergency room with progressively worsening dyspnea and cough over the last 2 weeks. She was initially hypoxic in the ER and also mildly hypotensive but promptly resolved with IV fluids. She was admitted for COPD exacerbation. 12/11: She continues to feel better. She says her SOB is also improving but she is not at her baseline yet. She has a few bilateral wheezes this morning. 12/12: Patient desaturated to 89% on 2 lpm yesterday afternoon when she was ambulating the hallway. She says she continues to feel better but not at her baseline yet. She had moderate wheezes this morning. Reason For Visit: ACUTE EXACERBATION OF COPD WITH ACUTE HYPOXIC Physical Exam Vital Signs: Temp Pulse Resp BP Pulse Ox 98.0 F 58 L 16 116/55 L 98 12/22/18 11:17 12/22/18 11:17 12/22/18 11:17 12/22/18 11:17 12/22/18 11:17 Intake & Output 12/21/18 12/22/18 12/23/18 06:59 06:59 06:59 Intake Total 2860 2790 400 Output Total 500 Balance 2360 2790 400 Weight 156 lb 4.924 oz 156 lb 8.451 oz General appearance: PRESENT: no acute distress, well-developed, well-nourished Head exam: PRESENT: atraumatic, normocephalic Eye exam: PRESENT: conjunctiva pink, EOMI, PERRLA. ABSENT: scleral icterus Ear exam: PRESENT: normal external ear exam Mouth exam: PRESENT: moist, tongue midline Neck exam: ABSENT: carotid bruit, JVD, lymphadenopathy, thyromegaly Respiratory exam: PRESENT: wheezes. ABSENT: rales, rhonchi Cardiovascular exam: PRESENT: RRR. ABSENT: diastolic murmur, rubs, systolic murmur Pulses: PRESENT: normal dorsalis pedis pul GI/Abdominal exam: PRESENT: normal bowel sounds, soft. ABSENT: distended, guarding, mass, organolmegaly, rebound, tenderness Rectal exam: PRESENT: deferred Neurological exam: PRESENT: alert, awake, oriented to person, oriented to place, oriented to time, oriented to situation, CN II-XII grossly intact. ABSENT: motor sensory deficit Results Laboratory Results: 12/22/18 06:06 12/22/18 06:06 12/22/18 12/22/18 06:06 06:06 WBC 24.7 H RBC 4.01 Hgb 12.0 Hct 35.7 L MCV 89 MCH 29.8 MCHC 33.5 RDW 12.8 Plt Count 320 Seg Neutrophils % Not Reportable Lymphocytes % Not Reportable Monocytes % Not Reportable Eosinophils % Not Reportable Basophils % Not Reportable Absolute Neutrophils Not Reportable Absolute Lymphocytes Not Reportable Absolute Monocytes Not Reportable Absolute Eosinophils Not Reportable Absolute Basophils Not Reportable Sodium 138.8 Potassium 4.7 Chloride 99 Carbon Dioxide 31 H Anion Gap 9 BUN 16 Creatinine 0.70 Est GFR ( Amer) > 60 Est GFR (Non-Af Amer) > 60 Glucose 133 H Calcium 9.9 Magnesium 2.3 12/19/18 12/19/18 12/19/18 18:40 22:28 22:28 Creatine Kinase 76 CK-MB (CK-2) 0.78 Troponin I < 0.012 < 0.012 12/20/18 12/20/18 12/20/18 04:19 04:19 10:00 Creatine Kinase 85 87 CK-MB (CK-2) 1.39 Troponin I < 0.012 12/20/18 10:03 Creatine Kinase CK-MB (CK-2) 2.19 Troponin I < 0.012 Impressions: Chest X-Ray 12/19/18 17:53 IMPRESSION: NO ACUTE RADIOGRAPHIC FINDING IN THE CHEST. Assessment & Plan - Diagnosis (1) Acute on chronic respiratory failure with hypoxia Is this a current diagnosis for this admission?: Yes Plan: Secondary to COPD exacerbation. Saturating well on 2 lpm (home requirement). 12/22: (2) COPD exacerbation Is this a current diagnosis for this admission?: Yes Plan: 12/21: Currently on solumedrol 40 mg IV q6h. Reduce steroids to 40 mg q12. Continue breathing treatments. 12/22: Revise and increase breathing treatments to q4h. Continue IV steroids. (3) Hypotension due to hypovolemia Is this a current diagnosis for this admission?: Yes Plan: Promptly resolved with IV fluids. - Time Time Spent with patient: 15-24 minutes
[2018-12-22] MEDS: IPRATROPIUM/ALBUTEROL 0.5-2.5 MG/3 ML AMPUL NEB SCH ×3 (13:00→20:13)
[2018-12-22] MEDS: CYANOCOBALAMIN (VITAMIN B-12) 1,000 MCG TABLET PO SCH (13:05)
[2018-12-22] MEDS ORDERED: ONDANSETRON 4 MG TAB.RAPDIS PO PRN (14:30)
[2018-12-22] MEDS ORDERED: ONDANSETRON HCL INJ/PF 4 MG/2 ML SDV IV PRN (14:30)
[2018-12-22] MEDS: LEVOFLOXACIN 750 MG TABLET PO SCH (17:17)
[2018-12-23] MEDS: IPRATROPIUM/ALBUTEROL 0.5-2.5 MG/3 ML AMPUL NEB SCH ×4 (00:20→11:31)
[2018-12-23] MEDS: HEPARIN SOD (PORCINE) 5,000 UNIT/ML 1 ML SYRINGE SUBCUT SCH (05:01)
[2018-12-23] MEDS: FAMOTIDINE 20 MG TABLET PO SCH (10:39)
[2018-12-23] MEDS: LEVOTHYROXINE SODIUM 0.075 MG TABLET PO SCH (10:39)
[2018-12-23] MEDS: CYANOCOBALAMIN (VITAMIN B-12) 1,000 MCG TABLET PO SCH (10:39)
[2018-12-23] MEDS: DOCUSATE SODIUM 100 MG CAPSULE PO SCH (10:39)
[2018-12-23] MEDS: CITALOPRAM HYDROBROMIDE 20 MG TABLET PO SCH (10:39)
[2018-12-23] MEDS: GUAIFENESIN 600 MG TABLET.SA PO SCH (10:39)
[2018-12-23] MEDS: NYSTATIN CREAM 15 GM TP SCH (10:40)
[2018-12-23] MEDS: METHYLPREDNISOLONE INJ 40 MG/1 ML SDV IV SCH (10:40)
[2018-12-23 12:45] VITALS: BP 130/58
[2018-12-23] MEDS: INSULIN LISPRO 100 UNIT/ML 3 ML VIAL SUBCUT SCH (15:01)
--- NOTE | 2018-12-23 16:39 | PDOC DISCHARGE SUMMARY ---
General - Admit/Disc Date/PCP Admission Date/Primary Care Provider: 12/19/18 20:37 [facility] Discharge Date: 12/23/18 - Discharge Diagnosis (1) Acute on chronic respiratory failure with hypoxia Is this a current diagnosis for this admission?: Yes (2) COPD exacerbation Is this a current diagnosis for this admission?: Yes (3) Hypotension due to hypovolemia Is this a current diagnosis for this admission?: Yes - Additional Information Resuscitation Status: Full Code Discharge Diet: Regular, Cardiac Discharge Activity: Activity As Tolerated Prescriptions: Fluticasone/Salmeterol [Fluticasone-Salmeterol 113-14] 1 each IH Q12 #1 aer.pow.ba Ipratropium/Albuterol Sulfate [Duoneb 3 ml Ampul] 3 ml NEB RTQ4 PRN #20 vial.neb PRN Reason: wheezing or SOB Prednisone [Deltasone 20 mg Tablet] 20 mg PO BID 5 Days #10 tablet Tiotropium [place] [Spiriva Handihaler 5 Cap/Kit (18 Mcg/Cap)] 1 cap IH DAILY #5 capsule Home Medications: Albuterol Sulfate [Proair Respiclick] 1 puff IH Q4HP PRN 12/20/18 Citalopram Hydrobromide [Celexa 20 mg Tablet] 20 mg PO DAILY 12/20/18 Cyanocobalamin (Vitamin B-12) [B-12] 1,000 mcg PO DAILY 12/20/18 Estradiol [Estrace] 1 mg PO QAM 12/20/18 Levothyroxine Sodium [Synthroid 0.075 mg Tablet] 0.075 mg PO Q6AM 12/20/18 Fluticasone/Salmeterol [Fluticasone-Salmeterol 113-14] 1 each IH Q12 #1 aer.pow.ba 12/23/18 Ipratropium/Albuterol Sulfate [Duoneb 3 ml Ampul] 3 ml NEB RTQ4 PRN #20 vial.neb 12/23/18 Levothyroxine Sodium [Synthroid 0.075 mg Tablet] 0.075 mg PO QAM tablet 12/23/18 Prednisone [Deltasone 20 mg Tablet] 20 mg PO BID 5 Days #10 tablet 12/23/18 Tiotropium [place] [Spiriva Handihaler 5 Cap/Kit (18 Mcg/Cap)] 1 cap IH DAILY #5 capsule 12/23/18 History of Present Illness History of Present Illness: Admitting hospitalist's H&P: SANDOR AGGARWAL is a 58 year old female who presented to the emergency room with progressively worsening dyspnea over the last 2 weeks. She admits that she began having mild dyspnea primarily with exertion accompanied by an occasional nonproductive cough approximately 2 weeks ago and has been gradually worsening with increased frequency of cough and increasing dyspnea to the point where she now has severe dyspnea at rest, a severe paroxysmal nonproductive cough with associated sharp aching chest wall pain and a subjective fever, which reached a high of 103 F, 2 days ago. She further admits that her cough and dyspnea are substantially worsened when she smokes cigarettes or tries to ambulate more than a few feet. She admits prior similar episodes with exacerbations of her COPD and has not identified any other aggravating or ameliorating factors for her dyspnea. In the emergency room she was found to be mildly hypotensive with a systolic pressure in the 90s and 100s on arrival but this rapidly improved with IV fluid administration. She was further noted to have significant work of breathing and was found to be hypoxic on evaluation of her oxygen saturation. She was treated with supplemental oxygen, IV steroids and multiple nebulizer treatments with improvement but was still unable to sustain adequate oxygenation in order to be discharged. Patient was subsequently admitted to the hospital for further evaluation and treatment of her acute exacerbation of COPD. Hospital Course Hospital Course: This is a 58 year old female with COPD on 2lpm at home who presented to the emergency room with progressively worsening dyspnea and cough over the last 2 weeks. She was initially hypoxic in the ER and also mildly hypotensive but promptly resolved with IV fluids. She was admitted for COPD exacerbation. She was started on IV steroids, Levaquin and breathing treatments. She did gradually improve. She does need to be on home O2. She says she already used 2 lpm at home. She did return to her baseline. She had very few wheezes on day of discharge but she does verbalize she feels she is at her baseline and does have occasional wheezing even on her best days. Apparently she is only on albuterol prn at home. She will be given a script for salmeterol-fluticasone, spiriva and duoneb. Physical Exam Vital Signs: Temp Pulse Resp BP Pulse Ox 98.2 F 69 18 130/58 H 94 12/23/18 12:40 12/23/18 12:40 12/23/18 12:40 12/23/18 12:40 12/23/18 12:40 Intake & Output 12/22/18 12/23/18 12/24/18 06:59 06:59 06:59 Intake Total 2790 2300 620 Balance 2790 2300 620 Weight 156 lb 8.451 oz 156 lb 15.506 oz General appearance: PRESENT: no acute distress, well-developed, well-nourished Head exam: PRESENT: atraumatic, normocephalic Eye exam: PRESENT: conjunctiva pink, EOMI, PERRLA. ABSENT: scleral icterus Ear exam: PRESENT: normal external ear exam Mouth exam: PRESENT: moist, tongue midline Neck exam: ABSENT: carotid bruit, JVD, lymphadenopathy, thyromegaly Respiratory exam: PRESENT: wheezes - mild occasional wheezes. ABSENT: rales Cardiovascular exam: PRESENT: RRR. ABSENT: diastolic murmur, rubs, systolic murmur Pulses: PRESENT: normal dorsalis pedis pul GI/Abdominal exam: PRESENT: normal bowel sounds, soft. ABSENT: distended, guar ding, mass, organolmegaly, rebound, tenderness Rectal exam: PRESENT: deferred Neurological exam: PRESENT: alert, awake, oriented to person, oriented to place, oriented to time, oriented to situation, CN II-XII grossly intact. ABSENT: motor sensory deficit Results Laboratory Results: 12/22/18 06:06 12/22/18 06:06 12/19/18 12/19/18 12/19/18 18:40 22:28 22:28 Creatine Kinase 76 CK-MB (CK-2) 0.78 Troponin I < 0.012 < 0.012 12/20/18 12/20/18 12/20/18 04:19 04:19 10:00 Creatine Kinase 85 87 CK-MB (CK-2) 1.39 Troponin I < 0.012 12/20/18 10:03 Creatine Kinase CK-MB (CK-2) 2.19 Troponin I < 0.012 Impressions: Chest X-Ray 12/19/18 17:53 IMPRESSION: NO ACUTE RADIOGRAPHIC FINDING IN THE CHEST. Qualifiers - * PATIENT BEING DISCHARGED WITH ANY OF THE FOLLOWING DIAGNOSIS: No
== END 2018-12-23 15:03 | disposition home or self-care (01) | DRG 189 ==
LOC: ER 16:55 → EH 20:37 → 2N 12-20 00:43
PROVIDERS: ADMIT Emergency Medicine; ATTEND Emergency Medicine
DX: J96.01 Acute respiratory failure with hypoxia (principal); J44.1 Chronic obstructive pulmonary disease with (acute) exacerbation; F17.210 Nicotine dependence, cigarettes, uncomplicated; M19.90 Unspecified osteoarthritis, unspecified site; E86.1 Hypovolemia; E03.9 Hypothyroidism, unspecified; F32.9 Major depressive disorder, single episode, unspecified; I95.89 Other hypotension; Z90.79 Acquired absence of other genital organ(s); Z90.710 Acquired absence of both cervix and uterus; Z82.49 Family history of ischemic heart disease and other diseases of the circulatory system; Z82.3 Family history of stroke; Z88.8 Allergy status to other drugs, medicaments and biological substances; Z79.51 Long term (current) use of inhaled steroids
CPT/HCPCS: 36415; 71046; 80048; 80053; 80061; 80307; 81001; 82550; 82553; 82803; 83036; 83605; 83735; 84439; 84443; 84481; 84484; 85025; 87040; 87804; 93005; 93010; 94640; 94667; 96361; 96374; 99291; J1644; J1956; J2300; J2920; J2930; J3490; J7120; J7620

== ENCOUNTER 2019-03-20 13:38 | Emergency (ER) | payer OTHER ==
[2019-03-20] MEDS ORDERED: IPRATROPIUM/ALBUTEROL 0.5-2.5 MG/3 ML AMPUL NEB ONE ×3 (14:15→18:28)
[2019-03-20] MEDS ORDERED: MAGNESIUM SULFATE/D5W 1 GM/100 ML RTUPB IV ONE ×2 (14:15→14:16)
[2019-03-20] MEDS ORDERED: METHYLPREDNISOLONE INJ 125 MG/2 ML SDV IV ONE (14:15)
--- NOTE | 2019-03-20 14:18 | ER Document Report ---
ED Medical Screen (RME) - General Chief Complaint: Cough Stated Complaint: COUGH Time Seen by Provider: 03/20/19 14:15 Primary Care Provider: [facility] [Primary Care Provider] - Follow up as needed TRAVEL OUTSIDE OF THE [place] IN LAST 30 DAYS: No - HPI Notes: 03/20/19 14:16 Patient is a 58-year-old female with a history of COPD who continues to smoke who presents complaining of semi-productive cough, shortness of breath, wheezing, chest tightness over the past 5 days. Patient has had to be admitted previously for COPD exacerbations. Patient states that this does feel similar. Denies [place], fever, neck pain, URI, Abd pain, or rash. I have treated and performed a rapid initial assessment of this patient. A comprehensive ED assessment and evaluation of the patient, analysis of test results and completion of medical decision making process will be conducted by additional ED providers. PHYSICAL EXAMINATION: GENERAL: Well-appearing, well-nourished and in no acute distress. A&Ox4. Answers questions appropriately. LUNGS: Rhonchi, wheezing, and diminishment throughout HEART: Regular rate and rhythm without murmurs, rubs, gallops. Extremities: No cyanosis, clubbing, or edema b/l. NEUROLOGICAL: Normal speech, normal gait. PSYCH: Normal mood, normal affect. - Related Data Allergies/Adverse Reactions: oxycodone Allergy (Mild, Verified 03/20/19 13:52) itching Past Medical History - Past Medical History Cardiac Medical History: Denies: Hx Coronary Artery Disease, Hx Hypertension Pulmonary Medical History: Reports: Hx Bronchitis, Hx COPD Denies: Hx Asthma, Hx Intubation, Hx Respiratory Failure, Hx Sleep Apnea, Hx Tuberculosis Neurological Medical History: Denies: Hx Seizures Endocrine Medical History: Reports: Hx Hypothyroidism. Denies: Hx Diabetes Mellitus Type 1, Hx Diabetes Mellitus Type 2, Hx Hyperthyroidism Renal/ Medical History: Denies: Hx Peritoneal Dialysis GI Medical History: Denies: Hx Cirrhosis, Hx Hepatitis Musculoskeltal Medical History: Reports Hx Arthritis, Denies Hx Gout, Reports Hx Musculoskeletal Trauma Skin Medical History: Denies Hx Eczema, Denies Hx Psoriasis Psychiatric Medical History: Reports: Hx Depression Traumatic Medical History: Reports: Hx Fractures - Right arm Infectious Medical History: Denies: Hx Hepatitis Past Surgical History: Reports: Hx Section, Hx Cholecystectomy, Hx Hysterectomy - Immunizations Hx Diphtheria, Pertussis, Tetanus Vaccination: Yes History of Influenza Vaccine for 07/2017 - 12/2017 Season: Refused Physical Exam - Vital signs Vitals: Temp Pulse Resp BP Pulse Ox 98.1 F 92 26 H 138/46 H 88 L 03/20/19 13:58 03/20/19 13:58 03/20/19 13:58 03/20/19 13:58 03/20/19 13:58 Course - Vital Signs Vital signs: Temp Pulse Resp BP Pulse Ox 98.1 F 92 26 H 138/46 H 88 L 03/20/19 13:58 03/20/19 13:58 03/20/19 13:58 03/20/19 13:58 03/20/19 13:58 Doctor's Discharge - Discharge Referrals: [facility] [Primary [facility]] - Follow up as needed
--- NOTE | 2019-03-20 15:42 | ER Document Report ---
ED General - General Chief Complaint: Cough Stated Complaint: COUGH Time Seen by Provider: 03/20/19 14:15 Primary Care Provider: [facility] [Primary Care Provider] - 03/22/19 Mode of Arrival: Ambulatory Information source: Patient Notes: This is a 58-year-old female with a history of COPD and active smoking who presents to the emergency room with progressively worsening shortness of breath over the past 2 weeks associated with some intermittent fever as well as a productive cough of green sputum. TRAVEL OUTSIDE OF THE [place] IN LAST 30 DAYS: No - HPI Onset: Last week Onset/Duration: Gradual Quality of pain: No pain Severity: None Pain Level: Denies Associated symptoms: Shortness of breath. denies: Chest pain, Fever Exacerbated by: Denies Relieved by: Denies Similar symptoms previously: Yes Recently seen / treated by doctor: No - Related Data Allergies/Adverse Reactions: oxycodone Allergy (Mild, Verified 03/20/19 13:52) itching Past Medical History - General Information source: Patient - Social History Smoking Status: Current Every Day Smoker Cigarette use (# per day): Yes - 1 pack/day Chew tobacco use (# tins/day): No Frequency of alcohol use: None Drug Abuse: None Lives with: Family Family History: Reviewed & Not Pertinent, Hypertension Patient has suicidal ideation: No Patient has homicidal ideation: No - Past Medical History Cardiac Medical History: Denies: Hx Coronary Artery Disease, Hx Hypertension Pulmonary Medical History: Reports: Hx Bronchitis, Hx COPD Denies: Hx Asthma, Hx Intubation, Hx Respiratory Failure, Hx Sleep Apnea, Hx Tuberculosis Neurological Medical History: Denies: Hx Seizures Endocrine Medical History: Reports: Hx Hypothyroidism. Denies: Hx Diabetes Mellitus Type 1, Hx Diabetes Mellitus Type 2, Hx Hyperthyroidism Renal/ Medical History: Denies: Hx Peritoneal Dialysis GI Medical History: Denies: Hx Cirrhosis, Hx Hepatitis Musculoskeletal Medical History: Reports Hx Arthritis, Denies Hx Gout, Reports Hx Musculoskeletal Trauma Skin Medical History: Denies Hx Eczema, Denies Hx Psoriasis Psychiatric Medical History: Reports: Hx Depression Traumatic Medical History: Reports: Hx Fractures - Right arm Infectious Medical History: Denies: Hx Hepatitis Past Surgical History: Reports: Hx Section, Hx Cholecystectomy, Hx Hysterectomy - Immunizations Hx Diphtheria, Pertussis, Tetanus Vaccination: Yes Hx Pneumococcal Vaccination: 02/04/13 Review of Systems - Review of Systems Constitutional: denies: Chills, Fever EENT: No symptoms reported Cardiovascular: No symptoms reported Respiratory: Cough, Short of breath, Wheezing Gastrointestinal: No symptoms reported Genitourinary: No symptoms reported Female Genitourinary: No symptoms reported Musculoskeletal: No symptoms reported Skin: No symptoms reported Hematologic/Lymphatic: No symptoms reported Neurological/Psychological: No symptoms reported Physical Exam - Vital signs Vitals: Temp Pulse Resp BP Pulse Ox 98.1 F 92 26 H 138/46 H 88 L 03/20/19 13:58 03/20/19 13:58 03/20/19 13:58 03/20/19 13:58 03/20/19 13:58 Notes: Physical exam: GENERAL: Patient is alert and oriented x3, blood pressure is 115/75, pulse is 80, O2 sat 97% on room air, respiratory rate 21 HEAD: Atraumatic, normocephalic. EYES: Pupils equal round and reactive to light, extraocular movements intact, sclera anicteric, conjunctiva are normal. ENT: TMs normal, nares patent, oropharynx clear without exudates. Moist mucous membranes. NECK: Normal range of motion, supple without obvious mass or JVD. LUNGS: Bilateral wheezing with decreased airway excursion HEART: Regular rate and rhythm without murmurs, rubs or gallops. ABDOMEN: Soft, normoactive bowel sounds. No tenderness to palpation. No guarding, no rebound. No masses appreciated. EXTREMITIES: Normal range of motion, no pitting or edema. No clubbing or cyanosis. NEUROLOGICAL: Cranial nerves II through XII grossly intact. Normal speech, moving all extremities. PSYCH: Normal mood, normal affect. SKIN: Warm, Dry, normal turgor, no rashes or lesions noted. Course - Vital Signs Vital signs: Temp Pulse Resp BP Pulse Ox 97.8 F 92 19 124/92 H 98 03/20/19 20:40 03/20/19 13:58 03/20/19 20:39 03/20/19 20:40 03/20/19 20:39 - Laboratory Result Diagrams: 03/20/19 15:45 03/20/19 15:45 Laboratory results interpreted by me: 03/20/19 03/20/19 15:45 15:45 WBC 10.9 H RBC 5.37 H Hgb 15.8 H Hct 48.5 H Chloride 97 L Carbon Dioxide 32 H - Diagnostic Test Radiology reviewed: Image reviewed, Reports reviewed - X-ray shows no infiltrates Discharge - Discharge Clinical Impression: COPD exacerbation Condition: Stable Disposition: HOME, SELF-CARE Additional Instructions: Recommendations: Rest, drink plenty of fluids Take the antibiotics as prescribed. Take the prednisone as prescribed. Continue your inhaler as needed. Strongly recommend you try and cut down on the cigarettes: Your COPD will only get worse and will be very difficult to breathe particularly with the temperatures that were seen lately. Follow-up with your primary care doctor Prescriptions: Doxycycline Hyclate 100 mg PO BID #20 capsule Prednisone [Deltasone 20 mg Tablet] 3 tab PO DAILY 5 Days tablet Referrals: [facility] [Primary Care Provider] - 03/22/19
--- NOTE | 2019-03-20 16:00 | RADIOLOGY REPORT (SQ) ---
EXAM DESCRIPTION: CHEST SINGLE VIEW COMPLETED DATE/TIME: 03/20/2019 3:37 pm REASON FOR STUDY: SOB, cough, wheezing COMPARISON: 12/19/2018 EXAM PARAMETERS: NUMBER OF VIEWS: One view. TECHNIQUE: Single frontal radiographic view of the chest acquired. RADIATION DOSE: NA LIMITATIONS: None. FINDINGS: LUNGS AND PLEURA: No opacities, masses or pneumothorax. No pleural effusion. MEDIASTINUM AND HILAR STRUCTURES: No masses. Contour normal. HEART AND VASCULAR STRUCTURES: Heart normal in size. Normal vasculature. BONES: No acute findings. HARDWARE: None in the chest. OTHER: No other significant finding. IMPRESSION: NO ACUTE RADIOGRAPHIC FINDING IN THE CHEST. TECHNICAL DOCUMENTATION: JOB ID: [id number] [employer]- All Rights Reserved Reading location - IP/workstation name: [email or web address]
[2019-03-20 16:05] LABS: ABSOLUTE BASOPHILS # (AUTO) 0.1 10^3/uL (0.0-0.2); ABSOLUTE EOSINOPHILS # (AUTO) 0.4 10^3/uL (0.0-0.6); ABSOLUTE LYMPHOCYTES (AUTO) 1.9 10^3/uL (0.5-4.7); ABSOLUTE MONOCYTES (AUTO) 0.7 10^3/uL (0.1-1.4); ABSOLUTE NEUT (AUTO) 7.6 10^3/uL (1.7-8.2); BASOPHILS % (AUTO) 1.2 % (0-2); HEMATOCRIT 48.5 % (36.0-47.0); HEMOGLOBIN 15.8 g/dL (12.0-15.5); LYMPHOCYTES % (AUTO) 17.9 % (13-45); MEAN CORPUSCULAR HEMOGLOBIN 29.5 pg (27.0-33.4); MEAN CORPUSCULAR HGB CONC 32.7 g/dL (32.0-36.0); MEAN CORPUSCULAR VOLUME 90 fl (80-97); MONOCYTES % (AUTO) 6.4 % (3-13); PLATELET COUNT 296 10^3/uL (150-450); RED BLOOD COUNT 5.37 10^6/uL (3.72-5.28); RED CELL DISTRIBUTION WIDTH 13.4 % (11.5-14.0); SEGMENTED NEUTROPHILS % (AUTO) 70.5 % (42-78); TOTAL CELLS COUNTED % (AUTO) 100 %; WHITE BLOOD COUNT 10.9 10^3/uL (4.0-10.5)
[2019-03-20 16:22] LABS: ALANINE AMINOTRANSFERASE 18 U/L (9-52); ALBUMIN 4.6 g/dL (3.5-5.0); ALKALINE PHOSPHATASE 86 U/L (38-126); ANION GAP 13 (5-19); ASPARTATE AMINO TRANSFERASE 21 U/L (14-36); BILIRUBIN,DIRECT 0.2 mg/dL (0.0-0.4); BILIRUBIN,TOTAL 0.5 mg/dL (0.2-1.3); BLOOD UREA NITROGEN 18 mg/dL (7-20); CARBON DIOXIDE 32 mmol/L (22-30); CHLORIDE 97 mmol/L (98-107); GLUCOSE 94 mg/dL (75-110); POTASSIUM 4.6 mmol/L (3.6-5.0); TOTAL PROTEIN 7.8 g/dL (6.3-8.2)
--- NOTE | 2019-03-20 16:26 | EKG REPORT ---
SEVERITY:- ABNORMAL ECG - SINUS RHYTHM BORDERLINE RIGHT AXIS DEVIATION ABNORMAL T, CONSIDER ISCHEMIA, ANT-LAT LEADS VS LVH : Confirmed by: Irma Shelton 20-Mar-2019 16:25:16
[2019-03-20 16:33] LABS: NT PRO BNP 22 pg/mL (5-900)
[2019-03-20 16:35] LABS: TROPONIN I < 0.012 ng/mL
[2019-03-20] MEDS ORDERED: DOXYCYCLINE HYCLATE 100 MG TABLET PO ONE (18:28)
[2019-03-20 20:51] VITALS: BP 124/92
== END 2019-03-20 20:45 | disposition home or self-care (01) ==
LOC: ER 13:38
DX: J44.1 Chronic obstructive pulmonary disease with (acute) exacerbation (principal); R06.02 Shortness of breath; Z88.6 Allergy status to analgesic agent; F17.210 Nicotine dependence, cigarettes, uncomplicated; Z90.710 Acquired absence of both cervix and uterus; Z90.49 Acquired absence of other specified parts of digestive tract
CPT/HCPCS: 93005; 96376; 94640 ×2; 99284; 96374; 96375; 36415; 85025; 80053; 84484; 83880; 71045; 93010; J2930; J3475; J7620

== ENCOUNTER → 2019-12-22 | Outpatient (CLI) | payer OTHER ==
[2019-12-22 10:33] LABS: ABSOLUTE BASOPHILS # (AUTO) 0.1 10^3/uL (0.0-0.2); ABSOLUTE EOSINOPHILS # (AUTO) 0.5 10^3/uL (0.0-0.6); ABSOLUTE LYMPHOCYTES (AUTO) 2.2 10^3/uL (0.5-4.7); ABSOLUTE MONOCYTES (AUTO) 0.6 10^3/uL (0.1-1.4); ABSOLUTE NEUT (AUTO) 4.4 10^3/uL (1.7-8.2); BASOPHILS % (AUTO) 1.4 % (0-2); HEMATOCRIT 45.3 % (36.0-47.0); HEMOGLOBIN 15.7 g/dL (12.0-15.5); LYMPHOCYTES % (AUTO) 28.3 % (13-45); MEAN CORPUSCULAR HGB CONC 34.6 g/dL (32.0-36.0); MEAN CORPUSCULAR VOLUME 90 fl (80-97); MONOCYTES % (AUTO) 7.5 % (3-13); PLATELET COUNT 244 10^3/uL (150-450); RED BLOOD COUNT 5.05 10^6/uL (3.72-5.28); RED CELL DISTRIBUTION WIDTH 12.7 % (11.5-14.0); SEGMENTED NEUTROPHILS % (AUTO) 56.8 % (42-78); TOTAL CELLS COUNTED % (AUTO) 100 %; WHITE BLOOD COUNT 7.7 10^3/uL (4.0-10.5)
[2019-12-22 11:18] LABS: ALBUMIN 4.3 g/dL (3.5-5.0); ALKALINE PHOSPHATASE 65 U/L (38-126); ANION GAP 6 (5-19); ASPARTATE AMINO TRANSFERASE 24 U/L (14-36); BILIRUBIN,TOTAL 0.5 mg/dL (0.2-1.3); BLOOD UREA NITROGEN 13 mg/dL (7-20); CALCIUM 9.7 mg/dL (8.4-10.2); CARBON DIOXIDE 34 mmol/L (22-30); CHLORIDE 100 mmol/L (98-107); GLUCOSE 93 mg/dL (75-110); POTASSIUM 4.8 mmol/L (3.6-5.0); TOTAL PROTEIN 7.2 g/dL (6.3-8.2)
== END ==
LOC: CCC 09:44
DX: Z00.00 Encounter for general adult medical examination without abnormal findings (principal)
CPT/HCPCS: 36415; 80053; 83036; 84443; 85025

== ENCOUNTER → 2020-04-20 | Outpatient (CLI) | payer MEDICAID ==
--- NOTE | 2020-04-20 16:20 | RADIOLOGY REPORT (SQ) ---
EXAM DESCRIPTION: CT LUNG CANCER SCREENING IMAGES COMPLETED DATE/TIME: 04/20/2020 11:53 am REASON FOR STUDY: PERSONAL HX OF TOBACCO ABUSE/NICOTINE DEPENDENCE (Z87.891) Z87.891 PERSONAL HISTO RY OF NICOTINE DEPENDENCE Has the patient had a Chest CT scan within the past year? N Was the patient offered tobacco cessation counseling? Y Was the patient engaged in shared decision making for this test? Y Does the patient have signs or symptoms of Lung Cancer? N Is the patient a smoker? Y How many pack years? 30 How many years since quitting smoking? 0 Patients age: 59 COMPARISON: 09/27/2018 TECHNIQUE: Low Dose CT scan performed of the chest without intravenous contrast for purposes of scre ening for lung cancer. Images reviewed with lung, soft tissue and bone windows. Reconstructed coron al and sagittal MPR images reviewed. All images stored on PACS. All CT scanners at this facility use dose modulation, iterative reconstruction, and/or weight based d osing when appropriate to reduce radiation dose to as low as reasonably achievable (ALARA). [facility]: Dose Right [facility]: CareDose [facility]: Dose Right [facility]: Teradose 4D [facility]: [employer] RADIATION DOSE: CT Rad equipment meets quality standard of care and radiation dose reduction techniq ues were employed. CTDIvol: 2.1 mGy. DLP: 85 mGy-cm. mGy. . LIMITATIONS: None FINDINGS: LUNGS AND PLEURA: No masses or nodules. No pleural effusions or calcifications. No pne umothorax. Background mild pulmonary emphysema. No interstitial changes or scarring. HILAR AND MEDIASTINAL STRUCTURES: No identified masses. No abnormal nodes. HEART AND VASCULAR STRUCTURES: No aortic aneurysm. No pericardial effusion. No cardiac devices. CORONARY ARTERY CALCIFICATIONS: No significant calcifications. UPPER ABDOMEN, THYROID, BONES, OTHER SOFT TISSUES: No significant findings. IMPRESSION: NO SIGNIFICANT FINDING IN THE LUNGS ON NON-CONTRASTED CHEST CT. NO OTHER CLINICALLY SIGNIFICANT/POTENTIALLY CLINICALLY SIGNIFICANT FINDINGS LUNGRADS: LUNGRADS: 1 NEGATIVE. NO NODULES, OR DEFINITELY BENIGN NODULES MODIFIER: NONE RECOMMENDATION: Continue annual screening with LDCT in 12 months. COMMENT: CRITERIA: No lung nodules. Nodules with specific calcifications: Complete, central, popcorn, concentric rings and fat containin g nodules. TECHNICAL DOCUMENTATION: JOB ID: [id number] Quality ID # [id number]: Final reports with documentation of one or more dose reduction techniques (e.g., Au tomated exposure control, adjustment of the mA and/or kV according to patient size, use of iterative reconstruction technique) 2010 [facility], [place] Radiology Reading location - IP/workstation name: [email or web address]
== END ==
LOC: RAD 12:37
PROVIDERS: ATTEND Registered Nurse
DX: Z87.891 Personal history of nicotine dependence (principal)
CPT/HCPCS: G0297